=== PATIENT | female | born 1960 | race Caucasian/White ===

== ENCOUNTER 2025-05-18 15:42 | Outpatient (AMB) | payer BC, SELFPAY ==
--- OUTSIDE RECORDS SUMMARY | 2025-05-18 18:32 | XMS_ITS | Patient Health Record ---
Author Organization [facility] Address [address] [place] [address] Care Team Providers Care Silviculturist Name Role Phone Trista Gan Primary Care Provider Smooth Magallanes Unavailable [phone] Allergies Allergen (clinical drug ingredient) Drug/Non Drug Allergy documented on EMR Reaction Allergy Type Onset Date Status sulfamethoxazole / trimethoprim Bactrim rash Drug Allergy Active Biaxin vomiting Drug Allergy Active Ciprofloxacin Unknown Drug Allergy Act suraj erythromycin Erythromycin vomiting Drug Allergy A ctive Cortisone rash Drug Allergy Active azithromycin Azithromycin vomiting Drug Allergy A ctive Reason For Referral No Information Medications Medication SIG (Take, Route, Frequency, Duration) Notes Start Date End Date Status Stool Softener 1 capsule as needed Orally Once a day; Duration: 30 day(s) Active Strattera 100 MG 1 capsule in the morning Orally Once a day Active Ibuprofen 1 tablet as needed Orally every 6 hrs Not-Taking ZyrTEC Not-Taking Vitamin D3 Active Tylenol PRN Active Synthroid 88 MCG 1 tablet on an empty stomach in the morning Orally Once a day Active Simvastatin 20 MG 1 tablet in the evening Orally Once a day; Duration: 30 day(s) Active Viibryd 40 MG 1 tablet with food Orally Once a day; Duration: 30 day(s) Not-Taking buPROPion HCl 200mg once a day Active LaMICtal as directed Orally N ot-Taking Claritin Active Aleve 220 MG as directed Orally Not-Taking traZODone HCl 300 MG 1 tablet at bedtime Orally Once a day Active Social History Tobacco Use: Social History Observation Description Date Details (start date - stop date) Never Smoker NA - NA Tobacco Use/Smoking Question Answer Notes Are you a: nonsmoker Additional Findings: Tobacco Non-User Current no n-smoker Alcohol Screen Question Answer Notes Did you have a drink containing alcohol in the p ast year? Yes Points 0 Interpretation Negative Tobacco use other than smoking: Question Answer Notes Are you an other tobacco user? No Problems Problem Type SNOMED Code ICD Code Onset Dates Problem Status W/U Status Risk Notes Problem Acquired hallux valgus (57785169) Hallux valgus (acquired), left foot (M20.12) Active confirmed Problem Chronic ulcer of foot (867180671) Non-pressure chronic ulcer of other part of left foot with fat layer exposed (L97.522) Active confirmed Problem Acquired hallux valgus (98803007) Hallux valgus (acquired), right foot (M20.11) Active confirmed Problem Non-pressure chronic ulcer of other part of left foot limited to breakdown of skin (L97.521) Active confirmed Problem Non-pressure chronic ulcer of other part of right foot limited to breakdown of skin (L97.511) Active confirmed Plan Of Treatment Pending Test Test Name Order Date X ray : Foot, left 2V 03/24/2013 X ray : Foot, right 2V 03/24/2013 [id number] SKIN/TISSUE 08/14/2022 Insurance Providers Payer Name Payer Address Payer Phone Subscriber Number Group Number Insured Name Patient Relationship to Insured Coverage Start Date Coverage End Date [facility] [address] [place] [address] [id number] Jack Benoit Spouse - patient is the spouse of the insured Medical (General) History Medical History History ICD Code thyroid disorder sinus conditions mumps measles headaches/migraines depression chicken pox back, hip, knee pain Anxiety Arthritis Back,Hip,and Knee pain CAD (Cholesterol) Depression Chicken pox Measles Mumps Environmental allergies - allergy shots since 2010 Hallux Valgus 735.0 Plantar Fasciitis 728.71 Myositis 729.1 Pain in Limb 729.5 Bursitis 727.3 Flat Foot, Congenital 754.61 Surgical History Surgery Date(Month/Year) hernia 1996 tonsillectomy 1965 laparoscopy 1987 adenoidectomy 1965 endometriosis 1987 umbilical hernia repair 1997 colonoscopy 06/02/22 Hospitalization History Reason Date(Month/Year) [facility] - Chest Pain -indigenous samed ay 10/2021
--- OUTSIDE RECORDS SUMMARY | 2025-05-18 18:32 | XMS_ITS | Clinical Summary ---
Author Organization [facility] Address [address] [place] [address] Phone Care Team Providers Care Supervisor Covering And Lining Name Role Phone Trista Gan MD Primary Care Provider [phone] Allergies Active Allergy Reactions Criticality Noted Date Comments Amoxicillin Swelling,Unknown 07/08/2020 Facial flushing Cortisone Rash 07/30/2024 Erythromycin Nausea And Vomiting 07/08/2020 Erythromycin-Sulfisoxazo le 07/30/2024 Levofloxacin Rash 07/08/2020 Sulfa (Sulfonamide Antibiotics) 06/06/2013 Facial swelling Sulfamethoxazole-Trimeth oprim Rash 07/30/2024 Medications traZODone (DESYREL) 150 mg tablet Take 1 tablet (150 mg total) by mouth at bedtime as needed for sleep. Take 1-2 tablets every night 4 Active buPROPion SR (WELLBUTRIN SR) 100 mg 12 hr tablet Take 1 tablet (100 mg total) by mouth 1 (one) time each day. 4 Active buPROPion SR (WELLBUTRIN SR) 200 mg 12 hr tablet Take 1 tablet (200 mg total) by mouth 1 (one) time each day. 3 Active atomoxetine (STRATTERA) 100 mg capsule Take 1 capsule (100 mg total) by mouth 1 (one) time each day. Active cholecalciferol (VITAMIN D-3) 25 mcg (1,000 unit) capsule Take 1 capsule (1,000 Units total) by mouth 1 (one) time each day. 1 Active fluticasone propionate (FLONASE) 50 mcg/actuation nasal spray Administer 2 sprays into each nostril 1 (one) time each day. Shake gently. Before first use, prime pump. After use, clean tip and replace cap. Active betamethasone dipropionate (DIPROSONE) 0.05 % cream Apply topically 2 (two) times a day. To affected area 4 Active docusate sodium (COLACE) 100 mg capsule Take 1 capsule (100 mg total) by mouth 2 (two) times a day. Active acetaminophen (TYLENOL) 500 mg tablet Take by mouth every 6 (six) hours if needed for mild pain. Active apixaban (Eliquis) 5 mg tablet Take 1 tablet (5 mg total) by mouth 2 (two) times a day. 180 each 1 5 Active simvastatin (ZOCOR) 20 mg tablet Take 1 tablet (20 mg total) by mouth at bedtime. 90 each 1 5 Active albuterol HFA (PROAIR HFA ; PROVENTIL HFA ; VENTOLIN HFA) 90 mcg/actuation inhaler Inhale 2 puffs by mouth every 6 (six) hours if needed for wheezing or shortness of breath. 1 each 11 5 12/13/19 26 Active levothyroxine (SYNTHROID, LEVOTHROID) 88 mcg tablet Take 1 tablet (88 mcg total) by mouth 1 (one) time each day before breakfast. 90 tablet 1 5 Active cyclobenzaprine (FLEXERIL) 5 mg tablet Take 1 tablet (5 mg total) by mouth 2 (two) times a day if needed for muscle spasms. 30 tablet 5 Active Active Problems Problem Noted Date Diagnosed Date ADHD 11/24/2024 Other chest pain 09/18/2024 Assessment & Plan (02/04/2025 1:45 PM EDT): Recent stress echocardiogram negative for ischemia as outlined above. Denies any exertional chest discomfort. Instructed to call 911 or go to the emergency room should the patient begin to experience chest pain or pressure lasting greater than 10 minutes does not resolve with rest. Assessment & Plan (09/19/2024 2:33 PM EST): Orders: Ambulatory referral to Cardiology ECG 12 lead Transthoracic echocardiogram (TTE) complete with PRN contrast, bubble, strain, and 3D order panel; Future Hypothyroid 08/19/2024 Plantar fasciitis 08/19/2024 Trochanteric bursitis of left hip 08/19/2024 Overview (08/19/2024): chronic Trigger finger 08/19/2024 Seasonal allergies 08/19/2024 Endometriosis 08/19/2024 Hyperlipidemia 08/19/2024 Assessment & Plan (02/04/2025 1:43 PM EDT): Continue on her current dose of statin therapy and be mindful of dietary fat intake. CTS (carpal tunnel syndrome) 08/19/2024 Overview (08/19/2024): right Bilateral pulmonary embolism (CMS/HCC V24, CMS/H CC V28) 07/26/2024 Assessment & Plan (02/04/2025 1:43 PM EDT): History of unprovoked bilateral PE. She has met with hematology PE the patient does inform me that her sister does have von Willebrand's disease and she recently found out that her mother also had pulmonary emboli. I did suggest she follow-up with hematology and relay this information to further evaluate whether or not further workup or testing is warranted. She will continue on her current dose of Eliquis. Assessment & Plan (09/19/2024 2:33 PM EST): Orders: Ambulatory referral to Cardiology ECG 12 lead Transthoracic echocardiogram (TTE) complete with PRN contrast, bubble, strain, and 3D order panel; Future Osteopenia 05/25/2023 Overview (08/19/2024): 06/02 T score spine -1.0 hip -1.7 FRAX score 18% 10 year fracture risk Back pain 08/23/2022 Asthma 05/15/2019 Bipolar disorder ([facility] V24, [facility] V28) 01/2019 Overview (08/19/2024): Sees Dr. Murphy Obstructive sleep apnea 03/09/2019 Overview (08/19/2024): [facility] Home Sleep Apnea Test: Date 03/06/2019; Wt 177#; BMI 29; ROBERTO 11, AI 7; HI 4; Unclassified apneas 4; Obstructive apneas 24; Central apneas 2; Mixed apneas 0; hypopneas 17; average oxygen saturation 94% (lowest 81% without saturations <88% for 5% or more of study) - Obstructive Sleep Apnea - mild; mostly hypopneas; without sleep related hypoventilation by 2018 home sleep apnea test. Tubular adenoma of colon 01/04/2019 Overview (08/19/2024): repeat screening colonoscopy in 2021 Severe episode of recurrent major depressive disorder, without psychotic features ([facility] V24, [facility] V28) 04/04/2017 Microscopic hematuria 06/18/2013 Encounters Date Type Department Care Team Description 03/24/2025 2:15 PM EDT Office Visit Adult Medicine [address] [phone] Gini Vitale PA Right foot pain (Primary Dx); Chronic right-sided thoracic back pain 03/24/2025 Telephone Adult Medicine [address] [phone] Trista Gan MD 03/23/2025 Telephone Adult Medicine [address] [phone] Trista Gan MD from Last 3 Months Immunizations Name Administration Dates Next Due Influenza Quadravalent, 0.5m l (Fluzone High-dose) 65yo and older 08/21/2023 Influenza Quadravalent, MDCK , 0.5ml, preservative free (Flucelvax) 6mo and older 06/20/2018 Influenza Quadravalent, MDCK , 0.5ml, with preservative (Flucelvax) 6mo and older 08/12/2020,08/20/2017 Influenza Quadrivalent, 0.5m l, preservative free (Fluarix; FluLaval; Fluzone) ages 6mo and older (Afluria) 3yo and older 08/21/2022,06/23/2021,07/31/2019,2015 Influenza trivalent, 0.5mL ( Fluzone High-dose) 65yo and older 05/15/2024 Influenza trivalent, with preservative (Fluzone; Afluria) 6mo and older 08/02/2015,07/10/2014,06/06/2013 Moderna Covid-19 Bivalent, O riginal + Ba.1 (Non-US Tradename Spikevax Bivalent) 07/03/2022 Pneumococcal conjugate 20 va lent (Prevnar 20, PCV 20) 2mo and older 11/19/2023 Tdap Tetanus diptheria acell ular pertussis (Boostrix; Adacel) 7yo and older 02/02/2021,06/06/2013,05/17/2011 Zoster recombinant (Shingrix ) 19yo and older 08/18/2020,05/26/2020 Surgical History Surgery Date Site/Laterality Comments TONSILLECTOMY ABDOMINAL SURGERY for endometriosis and ja. cyst. COLONOSCOPY 06/02/2022 Medical History Medical History Date Comments Depression Hypothyroid Trigger finger Seasonal allergies allergy shots Endometriosis CTS (carpal tunnel syndrome) rig ht Tubular adenoma of colon repeat colonoscopy 12/2021 Hyperlipidemia Back pain 08/23/2022 Osteopenia 05/25/202306/02 T score spi ne -1.0 hip -1.7 FRAX score 18% 10 year fracture risk Anxiety Insomnia Adhd 11/24/2024 Family History Medical History Relation Name Comments Melanoma Father basal cell CA Liver disease Mother ca breast in h er 70s, ESRD, PE Liver disease Mother's side Breast cancer Sister brca neg? Relation Name Status Comments Father Mother Mother's side Paternal Grandmother Alive Sister Alive Social History Tobacco Use Types Packs/Day Years Used Date Smoking Tobacco: Never Smokeless Tobacco: Never Tobacco Cessation:Counseling Given: Not Answered Alcohol Use Standard Drinks/Week Comments No 0 (1 standard drink = 0.6 oz pur e alcohol) occasional Interpersonal Safety Answer Date Record ed Physical Abuse 07/26/2024 Verbal Abuse 07/26/2024 Comments Unknown Sex and Gender Information Value Date Recorded Sex Assigned at Female 09/18/2024 2:55 PM EST Legal Sex Female 10:17 PM EST Gender Identity Female 09/18/2024 2:55 PM EST Sexual Orientation Choose not to disclose 2024 5:53 PM EDT Sexual Orientation Straight 03/23/2025 5: 53 PM EDT Obstetrics History Last Filed Vital Signs Vital Sign Reading Time Taken Comments Blood Pressure 129/75 03/24/2025 2:34 PM EDT Pulse 83 03/24/2025 2:34 PM EDT Temperature 36.7 C (98 F) 03/24/2025 2:34 PM EDT Respiratory Rate 16 03/24/2025 2:34 PM EDT Oxygen Saturation 97% 03/24/2025 2:34 PM EDT Inhaled Oxygen Concentration - - Weight 76.9 kg (169 lb 9.6 oz) 03/24/2025 2:34 P M EDT Height 166.4 cm (5' 5.5 ) 03/24/2025 2:34 PM EDT Body Mass Index 27.79 03/24/2025 2:34 PM EDT Plan of Treatment Upcoming Encounters Date Type Department Care Team (Late st Contact Info) Description 05/28/2025 10:30 AM EDT Office Visit Adult Medicine [facility] [address] [place] [address] Anna Rutledge PA [address] [place], [place] 07/27/2025 11:45 AM EST Office Visit Pulmonol - [place] [address] [phone] Jeanine Reinoso MD [address] [id number] Health Maintenance Due Date Last Done Comments RSV Immunization Adult Patients (1 - Risk 60-74 years 1-dose series) 2018 Social Influencers of Health Screening 08/19/2022 Breast Cancer Screening 10/11/2023 10/11/2021, 03/08 Depression Screening 09/10/2024 COVID-19 Vaccine ( season) 2025 07/12/2023, 07/03/2022, 02/20/2022, Additional history exists Influenza Vaccine (#1) 2025 , 08/21/2023, 08/21/2022, Additional history exists Falls Risk Assessment 07/28/2025 07/28/2024 Colorectal Cancer Screening: Colonoscopy 06/02/2027 06/02/2022 Cholesterol Screening (Lipid Panel) 11/24/2029 11/24/2024, 09/27/2023 DTaP,Tdap,and Td Vaccines (4 - Td or Tdap) 02/02/2031 02/02/2021, 06/06/2013, 05/17/2011 Osteoporosis Screening (Bone Density Screening) 05/24/2033 05/24/2023 Hepatitis C Screening Addressed 05/07/2014 Overri dden with the intention of not completing the topic Zoster Vaccines Completed 08/18/2020, 05/26/2020 Pneumococcal Vaccine: 50+ Years Completed 11/19/2023 HIB Vaccines Aged Out No longer eligi ble based on patient's age to complete this topic HPV Vaccines Aged Out No longer eligi ble based on patient's age to complete this topic Hepatitis A Vaccines Aged Out No long er eligible based on patient's age to complete this topic Hepatitis B Vaccines Aged Out No long er eligible based on patient's age to complete this topic IPV Vaccines Aged Out No longer eligi ble based on patient's age to complete this topic MMR Vaccines Aged Out No longer eligi ble based on patient's age to complete this topic Meningococcal ACWY Vaccine Aged Out N o longer eligible based on patient's age to complete this topic Meningococcal B Vaccine Aged Out No l onger eligible based on patient's age to complete this topic RSV Immunization Patients Under 20 months Aged Out No longer eligible based on patient's age to complete this topic Varicella Vaccines Aged Out No longer eligible based on patient's age to complete this topic Procedures Procedure Name Priority Date/Time Associated Diagnosis Comments LIPID PANEL WITH REFLEX TO DIRECT LDL Routine 11/24/2024 9:53 AM EDT Other hyperlipidemia DXA BONE DENSITY STUDY 1+ SITS AXIAL SKEL Routine 05/24/2023 11:29 AM EDT Asymptomatic menopausal state HM COLONOSCOPY Routine 06/02/2022 from Last 3 Months or Most Recently Relevant to Health Maintenance Results * (ABNORMAL) Lipid panel with reflex to direct LDL (11/24/2024 9:53 AM EDT) Cholesterol 212(H) 0 - 200 mg/dL LAB CHEMISTRY METHOD 11/24/2024 1:16 PM EDT [facility] Triglycerides 94 0 - 150 mg/dL LAB CHEMISTRY METHOD 11/24/2024 1:16 PM EDT [facility] HDL 92 >=40 mg/dL LAB CHEMISTRY METHOD 11/24/2024 1:16 PM EDT [facility] LDL Calculated 101(H) 0 - 100 mg/dL LAB CHEMISTRY METHOD 11/24/2024 1:16 PM EDT [facility] VLDL Cholesterol Wan 18.8 mg/dL LAB CHEMISTRY METHOD 11/24/2024 1:16 PM EDT [facility] Non HDL Chol. (LDL+VLDL) 120 <145 mg/dL LAB CHEMISTRY METHOD 11/24/2024 1:16 PM EDT [facility] Chol/HDL Ratio 2.3 0.0 - 4.4 LAB CHEMISTRY METHOD 11/24/2024 1:16 PM EDT [facility] Blood Venous blood specimen / Unknown Venipuncture / Unknown 11/24/2024 9:53 AM EDT 11/24/2024 9:53 AM EDT us Trista Gan MD LAB BLOOD ORDERABLES Final Resul t [facility] [address] [place] [address], * DXA BONE DENSITY STUDY 1+ SITS AXIAL SKEL (05/24/2023 11:29 AM EDT) Anatomical Region Laterality Modality Bone Densitometr y 02/22/2023 1:57 PM EDT Narrative 05/25/2023 8:11 AM EDT STUDY: DUAL ENERGY X-RAY ABSORPTIOMETRY / DXA REASON FOR EXAM: Female, 63 years old. menopausal/postmenopausal disorder TECHNIQUE: Bone Mineral Density (BMD) measurements of the lumbar spine and left hip were obtained. COMPARISON: None FINDINGS: L1-L4 T score: -1.0. This corresponds to Normal bone density. Left femoral neck T score: -1.7. This corresponds to osteopenia. Left total hip T score: -1.1. This corresponds to osteopenia. FRAX score: 10 year risk of major osteoporotic fracture Major 18 %, 10 year risk of hip fracture Hip 1.3 % IMPRESSION: IMPRESSION: Osteopenia Reference Information: The T-score is the number of standard deviations above or below the standard which is normal for young adults at their peak bone mineral density. The World Health Organization (WHO) interprets the T-scores as follows: Above -1 Normal bone density Between -1 and -2.5 Osteopenia Equal to / or below -2.5 Osteoporosis As a practical clinical guideline, osteopenia may be graded as follows: Mild -1 through -1.5 Moderate -1.6 through -2.0 Severe -2.1 through -2.4 References: 1. NIH Osteoporosis and Related Bone Diseases http://www.osteo.org 2. International Society for Clinical Densitometry http://www.iscd.org 3. National Osteoporosis Foundation http://www.nof.org Procedure Note Cole Patel MD - 10/16/2023 STUDY: DUAL ENERGY X-RAY ABSORPTIOMETRY / DXA REASON FOR EXAM: Female, 63 years old. menopausal/postmenopausaldisorder TECHNIQUE: Bone Mineral Density (BMD) measurements of the lumbar spineand left hip were obtained. COMPARISON: None FINDINGS: L1-L4 T score: -1.0. This corresponds to Normal bone density. Left femoral neck T score: -1.7. This corresponds to osteopenia. Left total hip T score: -1.1. This corresponds to osteopenia. FRAX score: 10 year risk of major osteoporotic fracture Major 18 %, 10year risk of hip fracture Hip 1.3 % IMPRESSION: IMPRESSION: Osteopenia Reference Information: The T-score is the number of standard deviations above or below thestandard which is normal for young adults at their peak bone mineral density. The World HealthOrganization (WHO) interprets the T-scores as follows: Above -1 Normal bone density Between -1 and -2.5 Osteopenia Equal to / or below -2.5 Osteoporosis As a practical clinical guideline, osteopenia may be graded as follows: Mild -1 through -1.5 Moderate -1.6 through -2.0 Severe -2.1 through -2.4 References: 1. NIH Osteoporosis and Related Bone Diseases http://www.osteo.org 2. International Society for Clinical Densitometry http://www.iscd.org 3. National Osteoporosis Foundation http://www.nof.org Trista Gan MD [facility] DXA PROCEDURES Final Result * Colonoscopy (06/02/2022) [facility] Colonoscopy abstract [facility] / Anatomical Region Laterality Modality Other Historical Provider HEALTH MAINTENANCE Final Result from Last 3 Months or Most Recently Relevant to Health Maintenance Insurance [facility] Advance Directives * Full Code - Confirmed (Latest Code Status on File) Date Activated Date Inactivated Comments 07/26/2024 6:01 PM 07/28/2024 9:48 PM This code status was ascertained in the following way: Code status discussion: discussion with patient To update the patient's code status, place a code status order. Do not modify or discontinue any currently active code status orders. * Full Code - Default Date Activated Date Inactivated Comments 07/26/2024 5:33 PM 07/26/2024 6:01 PM This is or nathalie is used when code status has not been discussed with the patient, or code status is otherwise unknown/unconfirmed To update the patient's code status, place a code status order. Do not modify or discontinue any currently active code status orders. Healthcare Agents on File Name Relationship Healthcare Agent Replaced By [facility] Communication Ernie Benoit Spouse Health Care Agent Care Teams Supervisor Covering And Lining Relationship Specialty Start Date End Date Trista Gan MD [address] [place] [address] PCP - General Internal Medicine 02/18/21
--- OUTSIDE RECORDS SUMMARY | 2025-05-18 18:32 | XMS_ITS | Clinical Summary ---
Author Organization [facility] Address [address] [place] [phone] Phone Care Team Providers Care Code And Test Clerk Name Role Phone Marybel Enriquez DO Primary Car e Provider Allergies Active Allergy Reactions Criticality Noted Date Comments Amoxicillin 07/08/2020 Erythromycin Nausea and/or Vomiting 07/08/2020 Levofloxacin 07/08/2020 Sulfa (Sulfonamide Antibiotics) 07/08/2020 Medications No known medications Social History Tobacco Use Types Packs/Day Years Used Date Smoking Tobacco: Never Smokeless Tobacco: Never Alcohol Use Standard Drinks/Week Comments Yes 0 (1 standard drink = 0.6 oz pur e alcohol) social Education Answer Date Recorded Are you interested in more education? Not on yanelis e 01/05/2023 Are you concerned about learning? Not on file 01/05/2023 No 01/05/2023 No 01/05/2023 Digital Access Answer Date Recorded No 02/06/2023 No 02/06/2023 Reliable internet access at home? Not on file 02/06/2023 Device with a working camera? Not on file Comments Unknown Sex and Gender Information Value Date Recorded Sex Assigned at Female 07/08/2020 2:13 PM EDT Legal Sex Female 2:03 PM EDT Gender Identity Female 07/08/2020 2:13 PM EDT Sexual Orientation Not on file Last Filed Vital Signs Vital Sign Reading Time Taken Comments Blood Pressure 148/81 07/08/2020 2:09 PM EDT Pulse 75 07/08/2020 2:09 PM EDT Temperature 36.9 C (98.4 F) 07/08/2020 2:09 PM EDT Respiratory Rate 16 07/08/2020 2:09 PM EDT Oxygen Saturation 100% 07/08/2020 2:09 PM EDT Inhaled Oxygen Concentration - - Weight 72.6 kg (160 lb) 07/08/2020 2:09 PM EDT Height 167.6 cm (5' 6 ) 07/08/2020 2:09 PM EDT Body Mass Index 25.82 07/08/2020 2:09 PM EDT Plan of Treatment Not on file Medical Devices Not on file Insurance [facility] HMO POS [facility] [place] [address] [place] [address] [place] [address] [place] [address] [place] [address] [place] [address] [place] [address] [place] [address] [place] [place] [address] HMO POS [facility] HMO POS [facility] HMO POS Care Teams Code And Test Clerk Relationship Specialty Start Date End Date Marybel Enriquez DO [address] [place] [address] PCP - General Internal Medicine 07/08/20 Additional Source Comments The information contained in this document represents components of the legal health record. It is not the complete legal health record.[facility]
--- OUTSIDE RECORDS SUMMARY | 2025-05-18 18:32 | XMS_ITS ---
Author Name [facility] Organization Unknown Care Team Organization Name Specialty Phone Email Start Date End [facility] Trista Gan Primary Care 07/18/2022 [address]
== END 2025-05-18 15:46 | disposition home or self-care (01) ==
LOC: HO.HMGAL 15:42
PROVIDERS: PCP Internal Medicine; Visit Provider Registered Nurse Emergency
DX: J30.89 Other allergic rhinitis (principal)
CPT/HCPCS: 95117; 95165

== ENCOUNTER 2025-05-25 14:26 | Outpatient (AMB) | payer BC, SELFPAY ==
--- OUTSIDE RECORDS SUMMARY | 2025-05-25 19:55 | XMS_ITS | Clinical Summary ---
Author Organization [facility] Address [address] [place] [address] Phone Care Team Providers Care Design Technician Name Role Phone Trista Gan MD Primary Care Provider [phone] Allergies Active Allergy Reactions Criticality Noted Date Comments Amoxicillin Swelling,Unknown 07/08/2020 Facial flushing Cortisone Rash 07/30/2024 Erythromycin Nausea And Vomiting 07/08/2020 Erythromycin-Sulfisoxazo le 07/30/2024 Levofloxacin Rash 07/08/2020 Sulfa (Sulfonamide Antibiotics) 06/06/2013 Facial swelling Sulfamethoxazole-Trimeth oprim Rash 07/30/2024 Medications traZODone (DESYREL) 150 mg tablet Take 1 tablet (150 mg total) by mouth at bedtime as needed for sleep. Take 1-2 tablets every night 05/25/20 24 Active buPROPion SR (WELLBUTRIN SR) 100 mg 12 hr tablet Take 1 tablet (100 mg total) by mouth 1 (one) time each day. 05/19/20 24 Active buPROPion SR (WELLBUTRIN SR) 200 mg 12 hr tablet Take 1 tablet (200 mg total) by mouth 1 (one) time each day. 06/27/20 23 Active atomoxetine (STRATTERA) 100 mg capsule Take 1 capsule (100 mg total) by mouth 1 (one) time each day. Active cholecalciferol (VITAMIN D-3) 25 mcg (1,000 unit) capsule Take 1 capsule (1,000 Units total) by mouth 1 (one) time each day. 02/19/20 21 Active fluticasone propionate (FLONASE) 50 mcg/actuation nasal spray Administer 2 sprays into each nostril 1 (one) time each day. Shake gently. Before first use, prime pump. After use, clean tip and replace cap. Active betamethasone dipropionate (DIPROSONE) 0.05 % cream Apply topically 2 (two) times a day. To affected area 11/21/19 24 Active docusate sodium (COLACE) 100 mg capsule Take 1 capsule (100 mg total) by mouth 2 (two) times a day. Active acetaminophen (TYLENOL) 500 mg tablet Take by mouth every 6 (six) hours if needed for mild pain. Active apixaban (Eliquis) 5 mg tablet Take 1 tablet (5 mg total) by mouth 2 (two) times a day. 180 each 1 11/25/19 25 Active albuterol HFA (PROAIR HFA ; PROVENTIL HFA ; VENTOLIN HFA) 90 mcg/actuation inhaler Inhale 2 puffs by mouth every 6 (six) hours if needed for wheezing or shortness of breath. 1 each 12/13/19 25 026 Active levothyroxine (SYNTHROID, LEVOTHROID) 88 mcg tablet Take 1 tablet (88 mcg total) by mouth 1 (one) time each day before breakfast. 90 tablet 1 02/20/20 25 Active cyclobenzaprine (FLEXERIL) 5 mg tablet Take 1 tablet (5 mg total) by mouth 2 (two) times a day if needed for muscle spasms. 30 tablet 03/24/20 25 Active simvastatin (ZOCOR) 20 mg tablet TAKE 1 TABLET BY MOUTH EVERYDAY AT BEDTIME 90 tablet 1 05/19/20 25 Active simvastatin (ZOCOR) 20 mg tablet Take 1 tablet (20 mg total) by mouth at bedtime. 90 each 11/25/19 25 025 Discontinued Active Problems Problem Noted Date Diagnosed Date [...] Back pain 08/23/2022 Asthma 05/15/2019 Bipolar disorder ([facility] [place]24, [facility] V28) 01/2019 Overview (08/19/2024): Sees Dr. Murphy Obstructive sleep apnea 03/09/2019 Overview (08/19/2024): [facility] Home Sleep Apnea Test: Date 03/06/2019; Wt [...] recurrent major depressive disorder, without psychotic features ([facility] V24, [facility] V28) 04/04/2017 Microscopic hematuria 06/18/2013 Encounters Date Type Department Care Team Description 03/24/2025 2:15 PM EDT Office Visit Adult Medicine [address] [phone] Gini Vitale PA Right foot pain (Primary Dx); Chronic right-sided thoracic back pain 03/24/2025 Telephone Adult Medicine [address] [phone] Trista Gan MD 03/23/2025 Telephone Adult Medicine [address] [phone] Trista Gan MD from Last 3 Months [...] 10:30 AM EDT Office Visit Adult Medicine [address] [phone] Anna Rutledge PA [address] [place], [place] 07/27/2025 11:45 AM EST Office Visit Pul[address] [place] [address] [phone] Jeanine Reinoso MD [address] [address] Health Maintenance Due Date Last Done Comments [...] LAB CHEMISTRY METHOD 11/24/2024 1:16 PM EDT [facility] Triglycerides 94 0 - 150 mg/dL LAB CHEMISTRY METHOD 11/24/2024 1:16 PM EDT [facility] HDL 92 >=40 mg/dL LAB CHEMISTRY METHOD 11/24/2024 1:16 PM EDT [facility] LDL Calculated 101(H) 0 - 100 mg/dL LAB CHEMISTRY METHOD 11/24/2024 1:16 PM EDT [facility] VLDL Cholesterol Wan 18.8 mg/dL LAB CHEMISTRY METHOD 11/24/2024 1:16 PM EDT [facility] Non HDL Chol. (LDL+VLDL) 120 <145 mg/dL LAB CHEMISTRY METHOD 11/24/2024 1:16 PM EDT [facility] Chol/HDL Ratio 2.3 0.0 - 4.4 LAB CHEMISTRY METHOD 11/24/2024 1:16 PM [facility] Blood Venous blood specimen / Unknown Venipuncture / Unknown 11/24/2024 9:53 AM EDT 11/24/2024 9:53 AM EDT Trista Gan MD LAB BLOOD ORDERABLES Final Resul t [facility] [address] [place] [address], * DXA BONE DENSITY STUDY 1+ SITS [...] National Osteoporosis Foundation [email or web address]://[email or web address] Trista Gan MD [facility] DXA PROCEDURES Final Result * Colonoscopy (06/02/2022) [facility] Colonoscopy abstract [facility] / Anatomical Region Laterality Modality Other Historical Provider HEALTH MAINTENANCE Final Result from Last 3 Months or Most Recently Relevant to Health Maintenance Insurance [facility] Advance Directives * Full Code - [...] Agents on File Name Relationship Healthcare Agent Relationshi p Communication Ernie Benoit Spouse Health Care Agent Care Teams Design Technician Relationship Specialty Start Date End Date Trista Gan MD [address] [place] [phone] PCP - General Internal Medicine 02/18/21
--- OUTSIDE RECORDS SUMMARY | 2025-05-25 19:55 | XMS_ITS | Clinical Summary ---
Author Organization [facility] Address [address] [facility] [address] [address] [place] [address] Phone Care Team Providers Care Director Of Community Education Name Role Phone Marybel Enriquez DO Primary [...] file Medical Devices Not on file Insurance [facility] H[facility] POS [facility] [place] [address] [place] [address] [place] [address] [place] [address] [place] [address] [place] [address] [place] [address] [place] [address] [place] [address] [place] [address] HMO POS [facility] HMO POS [facility] HMO POS Care Teams Director Of Community Education Relationship Specialty Start Date End Date Marybel Enriquez DO [address] [place] [address] PCP - General Internal Medicine 07/08/20 Additional Source Comments The information contained in this document represents components of the legal health record. It is not the complete legal health record.[facility]
--- OUTSIDE RECORDS SUMMARY | 2025-05-25 19:55 | XMS_ITS | Patient Health Record ---
Author Organization [facility] Address [address] [place] [address] Care Team Providers Care Striping Machine Operator Name Role Phone Trista Gan Primary Care Provider Smooth Magallanes Unavailable [phone] Allergies Allergen (clinical drug ingredient) Drug/Non Drug [...] Status Risk Notes Problem Acquired hallux valgus (56449113) Hallux valgus (acquired), left foot (M20.12) Active confirmed Problem Chronic ulcer of foot (712234221) Non-pressure chronic ulcer of other part of left foot with fat layer exposed (L97.522) Active confirmed Problem Acquired hallux valgus (92112756) Hallux valgus (acquired), right foot (M20.11) Active [...] X ray : Foot, right 2V 03/24/2013 [id number] SKIN/TISSUE 08/14/2022 Insurance Providers Payer Name Payer Address Payer Phone Subscriber Number Group Number Insured Name Patient Relationship to Insured Coverage Start Date Coverage End Date [facility] [address] [place] [address] [id number] Jack Benoit Spouse - patient is [...]
== END 2025-05-25 14:27 | disposition home or self-care (01) ==
LOC: HO.HMGAL 14:26
PROVIDERS: PCP Internal Medicine; Visit Provider Registered Nurse Emergency
DX: J30.89 Other allergic rhinitis (principal)
CPT/HCPCS: 95117; 95165

== ENCOUNTER 2025-06-01 14:40 | Outpatient (AMB) | payer BC, SELFPAY | END 2025-06-01 14:41 | disposition home or self-care (01) | LOC: HO.HMGAL 14:40 | PROVIDERS: PCP Internal Medicine; Visit Provider Registered Nurse Emergency | DX: J30.89 Other allergic rhinitis (principal) | CPT/HCPCS: 95117; 95165 ==

== ENCOUNTER 2025-06-15 15:44 | Outpatient (AMB) | payer BC, SELFPAY | END 2025-06-15 15:48 | disposition home or self-care (01) | LOC: HO.HMGAL 15:44 | PROVIDERS: PCP Internal Medicine; Visit Provider Registered Nurse Emergency | DX: J30.89 Other allergic rhinitis (principal) | CPT/HCPCS: 95117; 95165 ==

== ENCOUNTER 2025-06-29 15:20 | Outpatient (AMB) | payer BC, SELFPAY ==
--- OUTSIDE RECORDS SUMMARY | 2025-06-29 19:32 | XMS_ITS | Encounter Summary ---
Author Organization [facility] Address [address] [place] [address] Care Team Providers Care Lockstitch Machine Operator Name Role Phone Trista Gan MD Primary Care Provider [phone] Encounter Details Date Type Department Care Team Description 07/07/2021 Personalized Living Manager Nurse Report Medical Records [address] [place] [address] Isi Ballesteros Social History Tobacco Use Types Packs/Day Years Used Date Smoking Tobacco: Never Smokeless Tobacco: Never Alcohol Use Standard Drinks/Week Comments No 0 (1 standard drink = 0.6 oz pur e alcohol) Sex Assigned at Date Recorded Female 10/29/2020 11:14 AM EST Job Start Date Occupation Industry Not on file Not on file Not on file documented as of this encounter Plan of Treatment Not on file documented as of this encounter Visit Diagnoses Not on filedocumented in this encounter Care Teams Lockstitch Machine Operator Relationship Specialty Start Date End Date Trista Gan MD [address] [place] [address] PCP - General Internal Medicine 02/18/21 documented as of this encounter
--- OUTSIDE RECORDS SUMMARY | 2025-06-29 19:32 | XMS_ITS | Encounter Summary ---
Author Organization [facility] Address [address] [place] [address] Care Team Providers Care Hospitality Team Member Name Role Phone Marybel Dunlap DO Primary Care Pro vider Unavailable Trista Gan MD Primary Care Provider Reason for Visit * Reason Onset Date Comments Steamer Operator Feedback 07/18/2019 Podiatry Encounter Details Date Type Department Care Team Description 07/18/2019 Telephone Adult Medicine [address] [address] Marybel Dunlap DO Steamer Operator Feedback (Podiatry) Social History Tobacco Use Types Packs/Day Years Used Date Smoking Tobacco: Never Smokeless Tobacco: Never Alcohol Use Standard Drinks/Week Comments No 0 (1 standard drink = 0.6 oz pur e alcohol) Sex Assigned at Date Recorded Female 10/29/2020 11:14 AM EST Job Start Date Occupation Industry Not on file Not on file Not on file documented as of this encounter Miscellaneous Notes * Telephone Encounter - Marybel Saravia DO - 07/18/2019 3:10 PM EST Talita henderson * Telephone Encounter - Monasonia West - 07/18/2019 9:[address] Krak[place], You put in an Urgent referral for this patient to see Dr. Smooth Cooper at [facility]. I called to schedule and spoke to Shaneka. She stated they can't schedule at this time because they are doing a computer upgrade. She said we can call Sunday and we can get the patient an appointment if they can wait. I wanted to run this by you and make you aware. I can call Sunday morning if this is okay. If not please put in another referral that we can work to another office. Thank you! Mona Lange Referrals Department documented in this encounter Plan of Treatment Not on file documented as of this encounter Visit Diagnoses Not on filedocumented in this encounter Care Teams Hospitality Team Member Relationship Specialty Start Date End Date Marybel Dunlap DO PCP - General Internal Medicine 05/19/13 02/17/21 Trista Gan MD [address] [place] [address] PCP - General Internal Medicine 02/18/21 documented as of this encounter
--- OUTSIDE RECORDS SUMMARY | 2025-06-29 19:32 | XMS_ITS | Patient Health Record ---
Author Organization [facility] Address [address] [facility] [place] [address] Care Team Providers Care Camp Boss Name Role Phone Trista Gan Primary Care Provider Smooth Young Unavailable [phone] Allergies Allergen (clinical drug ingredient) Drug/Non Drug [...] Status Risk Notes Problem Acquired hallux valgus (23287767) Hallux valgus (acquired), left foot (M20.12) Active confirmed Problem Chronic ulcer of foot (666594692) Non-pressure chronic ulcer of other part of left foot with fat layer exposed (L97.522) Active confirmed Problem Acquired hallux valgus (00868396) Hallux valgus (acquired), right foot (M20.11) Active [...] X ray : Foot, right 2V 03/24/2013 [id number] SKIN/TISSUE 08/14/2022 Insurance Providers Payer Name Payer Address Payer Phone Subscriber Number Group Number Insured Name Patient Relationship to Insured Coverage Start Date Coverage End Date [facility] [address] [place] [address] [id number] Jack Benoit Spouse - patient is [...] tonsillectomy 1965 laparoscopy 1987 adenoidectomy 1965 endometriosis 1986 umbilical hernia repair 1997 colonoscopy 06/02/22 Hospitalization History Reason Date(Month/Year) [facility] - Chest Pain -indigenous samed ay 10/2021
--- OUTSIDE RECORDS SUMMARY | 2025-06-29 19:32 | XMS_ITS | Encounter Summary ---
Author Organization [facility] Address [address] [place] [address] Care Team Providers Care Lime Hide Inspector Name Role Phone Marybel Dunlap DO Primary Care Pro vider Unavailable Trista Gan MD Primary Care Provider [phone] Reason for Referral * EXTERNAL (Urgent) - Authorized/Booked Specialty Diagnoses / Procedures Referred By Contac t Referred To Contact Podiatry Procedures REFERRAL TO PODIATRY (OUT OF NETWORK) Marybel Dunlap DO [address] [place] [address] Smooth Cooper [address] [place] [phone] Referral ID Status Reason Start Date Expiration Date V isits Requested Visits Authorized SEE NOTE Authorized/B ooked 07/17/2019 10/21/2019 1 1 Encounter Details Date Type Department Care Team Description 07/17/2019 Orders Only Adult Medicine [facility] [address] [place] [address] Marybel Dunlap DO Social History Tobacco Use Types Packs/Day Years [...] on filedocumented in this encounter Care Teams Lime Hide Inspector Relationship Specialty Start Date End Date Marybel Dunlap DO PCP - General Internal Medicine 05/19/13 02/17/21 Trista Gan MD [address] [place] [address] PCP - General Internal Medicine 02/18/21 documented as of this encounter
--- OUTSIDE RECORDS SUMMARY | 2025-06-29 19:32 | XMS_ITS | Encounter Summary ---
Author Organization [facility] Address [address] [place] [address] Care Team Providers Care Electric Tripper Machine Operator Name Role Phone Trista Gan MD Primary Care Provider Encounter Details Date Type Department Care Team Description 08/21/2022 Hadoop Consultant Report Medical Records [address] [place] [address] Anna Galvan PA-C Social History Tobacco Use Types Packs/Day Years Used Date Smoking Tobacco: Never Smokeless Tobacco: Never Alcohol Use Standard Drinks/Week Comments No 0 (1 standard drink = 0.6 oz pur e alcohol) Sex Assigned at Date Recorded Female 10/29/2020 11:14 AM EST Job Start Date Occupation Industry Not on file Not on file Not on file COVID-19 Exposure Response Date Recorded In the last 10 days, have yo u been in contact with someone who was confirmed or suspected to have Coronavirus/COVID-19? No / Unsure 08/23/2022 12:50 PM EST documented as of this encounter Plan of Treatment Not on file documented as of this encounter Visit Diagnoses Not on filedocumented in this encounter Care Teams Electric Tripper Machine Operator Relationship Specialty Start Date End Date Trista Gan MD [address] [place] [address] PCP - General Internal Medicine 02/18/21 documented as of this encounter
--- OUTSIDE RECORDS SUMMARY | 2025-06-29 19:32 | XMS_ITS | Encounter Summary ---
Author Organization [facility] Address [address] [place] [address] Care Team Providers Care Silk Worker Name Role Phone Marybel Dunlap DO Primary Care Pro vider Unavailable Trista Gan MD Primary Care Provider [phone] Encounter Details Date Type Department Care Team Description 07/22/2018 Sleep Tech Report Medical Records [address] [place] [address] Papa Zepeda PA-C Social History Tobacco Use Types Packs/Day [...] on filedocumented in this encounter Care Teams Silk Worker Relationship Specialty Start Date End Date Marybel Dunlap DO PCP - General Internal Medicine 05/19/13 02/17/21 Trista Gan MD [address] [place] [id number] PCP - General Internal Medicine 02/18/21 documented as of this encounter
--- OUTSIDE RECORDS SUMMARY | 2025-06-29 19:32 | XMS_ITS | Encounter Summary ---
Author Organization [facility] Address [address] [place] [address] Care Team Providers Care Rrt Name Role Phone Trista Gan MD Primary Care Provider [phone] Encounter Details Date Type Department Care Team Description 03/11/2024 [facility] [address] [place] [address] Md Oscar Social History Tobacco Use Types Packs/Day Years Used Date Smoking Tobacco: Never Passive Smoke Exposure: Never Smokeless Tobacco: Never Alcohol Use Standard [...] on filedocumented in this encounter Care Teams Rrt Relationship Specialty Start Date End Date Trista Gan MD [address] [place] [address] PCP - General Internal Medicine 02/18/21 documented as of this encounter
--- OUTSIDE RECORDS SUMMARY | 2025-06-29 19:32 | XMS_ITS | Encounter Summary ---
Author Organization [facility] Address [address] [place] [address] Care Team Providers Care Voltage Tester Name Role Phone Trista Gan MD Primary Care Provider [phone] Encounter Details Date Type Department Care Team Description 04/21/2021 Telephone [facility] [address] [place] [address] Chaitanya Gómez, PA-C [address] [place] [address] Social History Tobacco Use Types Packs/Day Years Used Date Smoking Tobacco: Never Smokeless Tobacco: Never Alcohol Use Standard Drinks/Week Comments No 0 (1 standard drink = 0.6 oz pur e alcohol) Sex Assigned at Date Recorded Female 10/29/2020 11:14 AM EST Job Start Date Occupation Industry Not on file Not on file Not on file COVID-19 Exposure Response Date Recorded In the last month, have you been in contact with someone who was confirmed or suspected to have Coronavirus / COVID-19? No / Unsure 03/30/2021 8:07 AM EDT documented as of this encounter Plan of Treatment Not on file documented as of this encounter Visit Diagnoses Not on filedocumented in this encounter Care Teams Voltage Tester Relationship Specialty Start Date End Date Trista Gan MD [address] [place] [address] PCP - General Internal Medicine 02/18/21 documented as of this encounter
--- OUTSIDE RECORDS SUMMARY | 2025-06-29 19:32 | XMS_ITS | Encounter Summary ---
Author Organization [facility] Address [address] [place] [address] Care Team Providers Care Cleaning Validation Consultant Name Role Phone Marybel Dunlap DO Primary Care Pro vider Unavailable Trista Gan MD Primary Care Provider Reason for Visit * Reason Comments E-prescribe Rx Request Encounter Details Date Type Department Care Team Description 12/29/2018 Refill Adult Medicine [address] [address] Marybel Dunlap DO E-prescribe Rx Request Social History Tobacco Use Types Packs/Day Years [...] encounter Miscellaneous Notes * Telephone Encounter - Khloe Samayoa M.A. - 12/30/2018 1:38 PM EDT Lab Results Component Value Date CHOL 205 10/07/2018 LDL 106 10/07/2018 HDL 82 10/07/2018 TRIG 89 10/07/2018 * Telephone Encounter - Bianca Purcell - 12/30/2018 1:00 PM EDT Patient would like script to be: E-PRESCRIBED/FAXED TO PHARMACY ?? WHEN WAS THE PATIENT'S LAST APPOINTMENT IN ADULT MEDICINE? 07/02/18 ?? WHEN WAS THE LAST TIME THE PATIENT SAW THEIR PCP? Same as above ?? Does patient have an upcoming appointment? No-[facility] to refill request. Appt due ?? (THE MEDICATION REQUESTED IS ON THE MED LIST ABOVE) All of the medications requested were on the CURRENT MEDS list ?? Did you check the Pharmacy information above?: YES ?? Patient wants: 90 -day supply ?? Is this a mail order prescription request ? NO ?? If the refill is from a FAXED refill request what is the RX # listed on the fax? N/A ?? Patients current insurance carrier is: Payor: [facility]/[employer] FFS / Plan: [employer] $20 [place] [id number] / ProductType: HMO [id number] ? documented in this encounter Plan of Treatment Not on file documented as of this encounter Visit Diagnoses Not on filedocumented in this encounter Care Teams Cleaning Validation Consultant Relationship Specialty Start Date End Date Marybel Dunlap DO PCP - General Internal Medicine 05/19/13 02/17/21 Trista Gan MD [address] [place] [address] PCP - General Internal Medicine 02/18/21 documented as of this encounter
--- OUTSIDE RECORDS SUMMARY | 2025-06-29 19:32 | XMS_ITS | Encounter Summary ---
Author Organization [facility] Address [address] [place] [address] Care Team Providers Care Cyber Ops Planner Name Role Phone Marybel Dunlap DO Primary Care Pro vider Unavailable Trista Gan MD Primary Care Provider [phone] Reason for Referral * EXTERNAL (Routine) - Authorized/Booked Specialty Diagnoses / Procedures Referred By Contac t Referred To Contact Allergy & Immunology / Allergy Procedures REFERRAL TO ALLERGY Marybel Dunlap DO [address] [place] [address] Baudilio Jordan Saurabh [address] [place] [address] Referral ID Status Reason Start Date Expiration Date V isits Requested Visits Authorized SEE NOTE Authorized/B ooked 07/03/2019 10/03/2019 1 1 Encounter Details Date Type Department Care Team Description 07/03/2019 Orders Only Adult Medicine [facility] [address] [place] [address] Marybel Dunlap DO Social History Tobacco Use [...] on filedocumented in this encounter Care Teams Cyber Ops Planner Relationship Specialty Start Date End Date Marybel Dunlap DO PCP - General Internal Medicine 05/19/13 02/17/21 Trista Gan MD [address] [place] [address] PCP - General Internal Medicine 02/18/21 documented as of this encounter
--- OUTSIDE RECORDS SUMMARY | 2025-06-29 19:32 | XMS_ITS | Encounter Summary ---
Author Organization [facility] Address [address] [place] [address] Care Team Providers Care Animation Director Name Role Phone Marybel Dunlap DO Primary Care Pro vider Unavailable Trista Gan MD Primary Care Provider [phone] Encounter Details Date Type Department Care Team Description 02/02/2021 Orders Only Adult Medicine [address] [address] Marybel Dunalp DO Need for prophylactic vaccination with combined vgczcwwhlm-yelstoa-aenfz ssis (DTP) vaccine (Primary Dx) Social History Tobacco Use Types Packs/Day Years [...] have Coronavirus / COVID-19? No / Unsure 02/02/2021 10:47 AM EDT documented as of this encounter Plan of Treatment Not on file documented as of this encounter Procedures Procedure Name Priority Date/Time Associated Diagnosis Comments [place] TDAP VACCINE 7 YRS/> IM Routine 02/02/2021 10:55 AM EDT Need for prophylactic vaccination with combined xehdcsbmoe-uzdwtvh-jixtm ssis (DTP) vaccine documented in this encounter Visit Diagnoses Diagnosis Need for prophylactic vaccination with combined hljkyuwmhl-siffaip-eqgnhatyh (DTP) vaccine- Primary documented in this encounter Care Teams Animation Director Relationship Specialty Start Date End Date Marybel Dunlap DO PCP - General Internal Medicine 05/19/13 02/17/21 Trista Gan MD [address] [place] [address] PCP - General Internal Medicine 02/18/21 documented as of this encounter
--- OUTSIDE RECORDS SUMMARY | 2025-06-29 19:32 | XMS_ITS | Clinical Summary ---
Author Organization [facility] Address [address] [place] [address] Care Team Providers Care Bridge Expert Name Role Phone Trista Gan MD Primary Care Provider [phone] Allergies Active Allergy Reactions Severity Noted Date Comments Amoxicillin Swelling/Edema 08/23/2022 Facial flushing Sulfa Drugs 06/06/2013 Facial swelling Medications Medication Sig Dispensed Refills Start Date End Date Status Cholecalciferol (Vitamin D3) 25 MCG (1000 UT) Cap Take 1 capsule by mouth daily. 30 capsule 0 02/18/2021 Active atomoxetine (STRATTERA) 100 MG capsule Take 1 Capsule by mouth daily. 0 Active trazodone (DESYREL) 150 MG tablet Take 2 Tablets by mouth at bedtime. 0 Active ALBUTEROL SULFATE (ProAir HFA) 108 (90 Base) MCG/ACT Aero Soln Inhale 2 Puffs into the lungs every 4 hours as needed for Cough or Wheezing. 25.5 g 0 08/23/2022 Active buPROPion (WELLBUTRIN SR) 200 MG 12 hr tablet 0 06/27/2023 Active betamethasone dipropionate (DIPROLENE) 0.05 % cream Apply bid to affected area 30 g 1 11/21/2023 Active Calcium Carbonate-Vit D-Min (CALCIUM 1200 OR) Take 1,200 mg by mouth daily. 0 Active magnesium 30 MG tablet Take 1 Tablet by mouth daily. 0 Active fluticasone (Flonase) 50 MCG/ACT nasal spray 2 Sprays by Nasal route daily. 47.4 mL 1 01/01/2024 Active diclofenac (VOLTAREN) 75 MG EC tablet Take 1 Tablet by mouth 2 times daily. 180 Tablet 1 04/21/2024 Active cetirizine (ZYRTEC) 10 MG tablet Take 1 Tablet by mouth daily. 90 Tablet 1 04/21/2024 Active levothyroxine (SYNTHROID, LEVOTHROID) 88 MCG tablet Take 1 Tablet by mouth every morning (before breakfast). 90 Tablet 1 05/15/2024 Active simvastatin (ZOCOR) 20 MG tablet Take 1 Tablet by mouth at bedtime. 90 Tablet 1 05/15/2024 Active cyclobenzaprine (FLEXERIL) 5 MG tablet Take 1 Tablet by mouth 2 times daily as needed for Muscle spasms for up to 10 days. Medication may cause drowsiness, do not drive/operate machinery while taking 20 Tablet 0 05/15/2024 Active Active Problems Problem Noted Date Osteopenia 05/25/2023 Overview: 06/02 T score spine -1.0 hip -1.7 FRAX score 18% 10 year fracture risk Back pain 08/23/2022 Asthma 05/15/2019 Bipolar disorder 05/15/2019 Overview: Sees Dr. Murphy Obstructive sleep apnea mild ROBERTO 11 02/10 Overview: [facility] Home Sleep Apnea Test: Date 03/06/2019; [...] hypoventilation by 2018 home sleep apnea test. Severe episode of recurrent major depressive disorder, without psychotic features 04/04/2017 Microscopic hematuria 06/18/2013 Hypothyroid Plantar fasciitis Trochanteric bursitis of left hip Overview: chronic Trigger finger Seasonal allergies Endometriosis Hyperlipidemia CTS (carpal tunnel syndrome) Overview: right Resolved Problems Problem Noted Date Resolved Date Physical exam 11/19/2023 05/15/2024 Family history of malignant melanoma of skin 03/201708/08/2022 Overview: Family history of malignant melanoma of skin father Immunizations Name Administration Dates Next Due COVID-19 (Moderna Booster) 07/12/2023 COVID-19 (Moderna) 02/20/2022,,01/05/2021, 021 Covid-19 Bivalent (Moderna) 07/03/2022 Flu (Generic) 05/17/2011 Influenza (> 6 Months) 08/21/2022,2020,07/31/2019, 018,09/01/2016,08/02/2015,07/10/2014,,08/01/2012 Influenza Vaccine-quadrivale nt 4 Years Plus 08/21/2022,06/23/2021,08/12/2020, 019,08/20/2017,09/01/2016 Influenza vaccine high dose age 65 and over 05/15/2024,08/21/2023 PREVNAR 20 11/19/2023 Shingrix (Recombinant zoster vaccine) 08/18/2020,05/26/2020 Tdap 02/02/2021,06/06/2013,05/17/2011 Family History Medical History Relation Name Comments Melanoma Father basal cell CA Liver Disease Mother ca breast, ESR D Liver Disease Mother's side CA Breast Sister sister brca neg ? Relation Name Status Comments Father Mother Mother's side Paternal Grandmother Alive Sister Alive Social History Tobacco Use Types Packs/Day Years Used Date Smoking Tobacco: Never Passive Smoke Exposure: Never Smokeless Tobacco: Never Tobacco Cessation:Counseling Given: Not Answered Alcohol Use Standard Drinks/Week Comments No 0 (1 standard drink = 0.6 oz pur e alcohol) Sex Assigned at Date Recorded Female 10/29/2020 11:14 AM EST Job Start Date Occupation Industry Not on file Not on file Not on file Last Filed Vital Signs Vital Sign Reading Time Taken Comments Blood Pressure 128/88 06/24/2024 2:41 PM EDT Pulse 83 06/16/2024 4:34 PM EDT Temperature 35.6 C (96 F) 06/16/2024 4:34 PM EDT Respiratory Rate 16 06/16/2024 4:34 PM EDT Oxygen Saturation 98% 11/19/2023 3:45 PM EDT Inhaled Oxygen Concentration - - Weight 77.6 kg (171 lb) 06/16/2024 4:34 PM EDT Height 166.4 cm (5' 5.5 ) 05/29/2024 12:25 PM ED T Body Mass Index 28.02 05/29/2024 12:25 PM EDT Plan of Treatment Health Maintenance Due Date Last Done Comments MAMMOGRAM 10/11/2022 10/11/2021, 02/09, 09/06/2020, Additional history exists BMI CHECK/ADVISE 09/10/2024 02/13/2024, 07/2024, 11/19/2023 (Completed), Additional history exists Covid-19 Vaccine (2022-10 4 season) 2025 07/12/2023, 07/03/2022, 02/20/2022, Additional history exists INFLUENZA (#1) 2025 05/15/2024, 08/10, 08/21/2022, Additional history exists BONE DENSITY SCREENING 05/24/2025 05/24/2023 COLON CANCER SCREENING 06/02/2025 , 06/02/2022 (Completed), 01/01/2019, Additional history exists CHOLESTEROL SCREENING 09/27/2028 09/27/2023 , 09/15/2022, 05/02/2021, Additional history exists DTAP/TDAP/TD (4 - Td or Tdap) 02/02/2031, 06/06/2013, 05/17/2011 HEPATITIS C SCREENING Completed 05/08/2014, 013 SHINGLES VACCINE Completed 08/18/2020, 05/26/2020 PNEUMOCOCCAL VACCINE Completed 11/19/2023 Care Teams Bridge Expert Relationship Specialty Start Date End Date Trista Gan MD [address] [place] [id number] PCP - General Internal Medicine 02/18/21
--- OUTSIDE RECORDS SUMMARY | 2025-06-29 19:32 | XMS_ITS | Encounter Summary ---
Author Organization [facility] Address [address] [place] [address] Care Team Providers Care Is Architect Name Role Phone Trista Gan MD Primary Care Provider [phone] Encounter Details Date Type Department Care Team Description 05/06/2021 Bread Racker Report Medical Records [address] [place] [id number] Social History Tobacco Use Types Packs/Day Years [...] have Coronavirus / COVID-19? No / Unsure 05/04/2021 3:26 PM EDT documented as of this encounter Plan of Treatment Not on file documented as of this encounter Visit Diagnoses Not on filedocumented in this encounter Care Teams Is Architect Relationship Specialty Start Date End Date Trista Gan MD [address] [place] [address] PCP - General Internal Medicine 02/18/21 documented as of this encounter
--- OUTSIDE RECORDS SUMMARY | 2025-06-29 19:32 | XMS_ITS | Encounter Summary ---
Author Organization [facility] Address [address] [place] [address] Care Team Providers Care Radio Commentator Name Role Phone Trista Gan MD Primary Care Provider [phone] Encounter Details Date Type Department Care Team Description 06/17/2024 Pt. Non Urgent Medical Question Adult Medicine [address] [address] Anna Rutledge PA-C [address] [place] [address] Social History Tobacco Use Types Packs/Day Years [...] encounter Miscellaneous Notes * Telephone Encounter - Laureen Cooper L.P.N. - 06/17/2024 9:04 AM EDTFrom: Kimi Benoit To: Arabella Rutledge Sent: 06/17/2024 8:56 AM EDT Subject: one more shingles question I forgot to mention at the appointment that my lips are tingling and sore, in the same way they didwhen I had a few medication reactions. Is that also part of shingles? I do feel kind of sick, and Ihave a sore throat. Thanks. documented in this encounter Plan of Treatment Not on file documented as of this encounter Visit Diagnoses Not on filedocumented in this encounter Care Teams Radio Commentator Relationship Specialty Start Date End Date Trista Gan MD [address] [place] [id number] PCP - General Internal Medicine 02/18/21 documented as of this encounter
--- OUTSIDE RECORDS SUMMARY | 2025-06-29 19:32 | XMS_ITS | Encounter Summary ---
Author Organization [facility] Address [address] [place] [address] Care Team Providers Care Nail Setter Name Role Phone Marybel Dunlap DO Primary Care Pro vider Unavailable Trista Gan MD Primary Care Provider [phone] Encounter Details Date Type Department Care Team Description 09/07/2014 Hr Advisor Report Medical Records [address] [place] [address] Hay Purcell Social History Tobacco Use Types Packs/Day Years Used Date Smoking Tobacco: Never Alcohol Use Standard Drinks/Week Comments Not Asked 0 (1 standard drink = 0.6 oz pur e alcohol) Sex Assigned at Date Recorded Female 10/29/2020 11:14 AM EST Job Start Date Occupation Industry Not on file Not on file Not on file documented as of this encounter Plan of Treatment Not on file documented as of this encounter Visit Diagnoses Not on filedocumented in this encounter Care Teams Nail Setter Relationship Specialty Start Date End Date Marybel Dunlap DO PCP - General Internal Medicine 05/19/13 02/17/21 Trista Gan MD [address] [place] [address] [id number] PCP - General Internal Medicine 02/18/21 documented as of this encounter
--- OUTSIDE RECORDS SUMMARY | 2025-06-29 19:32 | XMS_ITS | Encounter Summary ---
Author Organization [facility] Address [address] [place] [address] Care Team Providers Care Care Team Assistant Name Role Phone Marybel Dunlap DO Primary Care Pro vider Unavailable Trista Gan MD Primary Care Provider Reason for Visit * Reason Onset Date Comments refill request 10/21/2018 Encounter Details Date Type Department Care Team Description 10/21/2018 Refill Adult Medicine [address] [address] aMrybel Dunlap DO refill request Social History Tobacco Use Types Packs/Day Years [...] encounter Miscellaneous Notes * Telephone Encounter - Delma Garduno M.A. - 10/23/2018 2:18 PM EST Lab Results Component Value Date TSH 3.08 10/07/2018 * Telephone Encounter - Layla Murillo - 10/21/2018 8:33 AM EST Patient would like script to be: E-PRESCRIBED/FAXED TO PHARMACY WHEN WAS THE PATIENT'S LAST APPOINTMENT IN ADULT MEDICINE? 07/02/2018 WHEN WAS THE LAST TIME THE PATIENT SAW THEIR PCP? Same as above Does patient have an upcoming appointment? No-patient refused appointment, will call back to book appointment (THE MEDICATION REQUESTED IS ON THE MED LIST ABOVE) All of the medications requested were on the CURRENT MEDS list Did you check the Pharmacy information above?: YES Patient wants: 30 -day supply Is this a mail order prescription request ? NO If the refill is from a FAXED refill request what is the RX # listed on the fax? N/A Patients current insurance carrier is: Payor: [facility]/[employer] FFS / Plan: [employer] $15 [employer] [id number] / ProductType: [employer] [id number] documented in this encounter Plan of Treatment Not on file documented as of this encounter Visit Diagnoses Not on filedocumented in this encounter Care Teams Care Team Assistant Relationship Specialty Start Date End Date Marybel Dunlap DO PCP - General Internal Medicine 05/19/13 02/17/21 Trista Gan MD [address] [place] [address] [id number] PCP - General Internal Medicine 02/18/21 documented as of this encounter
--- OUTSIDE RECORDS SUMMARY | 2025-06-29 19:32 | XMS_ITS | Encounter Summary ---
Author Organization [facility] Address [address] [place] [address] Care Team Providers Care Telecommunication Operator Name Role Phone Marybel Dunlap DO Primary Care Pro vider Unavailable Trista Gan MD Primary Care Provider [phone] Encounter Details Date Type Department Care Team Description 06/01/2019 Pt. Non Urgent Medical Question Pulmonology - [place] [address] [facility] [address] [place] [id number] Britney Worley FNP [address] [place] [address] Social History Tobacco Use Types Packs/Day Years Used Date Smoking Tobacco: Never Smokeless Tobacco: Never Alcohol Use Standard Drinks/Week Comments No 0 (1 standard drink = 0.6 oz pur e alcohol) Sex Assigned at Date Recorded Female 10/29/2020 11:14 AM EST Job Start Date Occupation Industry Not on file Not on file Not on file documented as of this encounter Progress Notes * HELEN Davidson - 06/01/2019 9:53 PM EDTFrom: Kimi Benoit To: HELEN Davidson Sent: 06/01/2019 6:53 PM EDT Subject: can't get over cough I saw Britney three and a half weeks ago for a sore throat and deep chest cough. The diagnosis was that it was viral, and I was prescribed Flovent and was told to take Mucinex and to use my Flonase spray twice a day. The cough stopped coming from my chest and the sore throat has been better, but I have a near- constant urge to cough; it's partly an irritant and partly pain or discomfort. It's getting exhausting! I wake up most nights coughing, and I'm constantly bloated from sugar-free cough drops. Can you help? Thank you! documented in this encounter Plan of Treatment Not on file documented as of this encounter Visit Diagnoses Not on filedocumented in this encounter Care Teams Telecommunication Operator Relationship Specialty Start Date End Date Marybel Dunlap DO PCP - General Internal Medicine 05/19/13 02/17/21 Trista Gan MD [address] [place] [phone] PCP - General Internal Medicine 02/18/21 documented as of this encounter
--- OUTSIDE RECORDS SUMMARY | 2025-06-29 19:32 | XMS_ITS | Encounter Summary ---
Author Organization [facility] Address [address] [place] [address] Care Team Providers Care It Senior Software Engineer Java Name Role Phone Marybel Dunlap DO Primary Care Pro vider Unavailable Trista Gan MD Primary Care Provider [phone] Encounter Details Date Type Department Care Team Description 07/01/2019 Pt. Non Urgent Medic al Question Adult Medicine [address] [address] Marybel Dunlap DO Social History Tobacco Use [...] as of this encounter Progress Notes * Marybel Saravia DO - 07/03/2019 6:45 AM EDT Ref to fu placed documented in this encounter Miscellaneous Notes * Telephone Encounter - Delma Garduno M.A. - 07/02/2019 6:54 AM EDTFrom: Kimi Benoit To: Marybel Saravia DO Sent: 07/01/2019 6:47 PM EDT Subject: new referral for allergy shots Hannalaquita, I have been advised by Dr. Jordan's office that I need an updated referral for my allergy shots. My insurance company is [employer]. It needs to be back-dated to June 19. Thank you. documented in this encounter Plan of Treatment Not on file documented as of this encounter Visit Diagnoses Not on filedocumented in this encounter Care Teams It Senior Software Engineer Java Relationship Specialty Start Date End Date Marybel Dunlap DO PCP - General Internal Medicine 05/19/13 02/17/21 Trista Gan MD [address] [place] [phone] PCP - General Internal Medicine 02/18/21 documented as of this encounter
--- OUTSIDE RECORDS SUMMARY | 2025-06-29 19:32 | XMS_ITS | Encounter Summary ---
Author Organization [facility] Address [address] [place] [address] Care Team Providers Care Tape Sewing Machine Operator Name Role Phone Trista Gan MD Primary Care Provider [phone] Reason for Visit * Reason Onset Date Comments refill request 07/09/2021 Encounter Details Date Type Department Care Team Description 07/09/2021 Refill Adult Urgent Care - [place] [id number] Trista Gan MD [address] [place] [address] [phone] refill request Social History Tobacco Use Types [...] encounter Miscellaneous Notes * Telephone Encounter - Gabriela Bran - 07/09/2021 9:25 AM EDT Patient would like script to be: E-PRESCRIBED/FAXED TO PHARMACY PATIENT OUT NEEDS TODAY WHEN WAS THE PATIENT'S LAST APPOINTMENT IN ADULT MEDICINE? 05/04/2021 WHEN WAS THE LAST TIME THE PATIENT SAW THEIR PCP? Does patient have an upcoming appointment? No-patient [...] N/A Patients current insurance carrier is: Payor: [employer] FFS / Plan: [employer] $30 [employer] [id number] / ProductType: HMO PRE-PAID documented in this encounter Plan of Treatment Not on file documented as of this encounter Visit Diagnoses Not on filedocumented in this encounter Care Teams Tape Sewing Machine Operator Relationship Specialty Start Date End Date Trista Gan MD [address] [place] [phone] PCP - General Internal Medicine 02/18/21 documented as of this encounter
--- OUTSIDE RECORDS SUMMARY | 2025-06-29 19:32 | XMS_ITS | Encounter Summary ---
Author Organization [facility] Address [address] [place] [address] Care Team Providers Care Slip Sheeter Name Role Phone Trista Gan MD Primary Care Provider [phone] Encounter Details Date Type Department Care Team Description 12/16/2021 Director Of Content Marketing Report Medical Records [address] [place] [id number] Abstract, Provider Social History Tobacco Use Types Packs/Day Years [...] on filedocumented in this encounter Care Teams Slip Sheeter Relationship Specialty Start Date End Date Trista Gan MD [address] [place] [phone] PCP - General Internal Medicine 02/18/21 documented as of this encounter
--- OUTSIDE RECORDS SUMMARY | 2025-06-29 19:32 | XMS_ITS | Encounter Summary ---
Author Organization [facility] Address [address] [place] [address] Care Team Providers Care Bank Runner Name Role Phone Marybel Dunlap DO Primary Care Pro vider Unavailable Trista Gan MD Primary Care Provider [phone] Encounter Details Date Type Department Care Team Description 03/09/2019 Orders Only Medical Records [address] [place] [address] Dorcas Naranjo PA-C Social History Tobacco Use Types Packs/Day [...] Procedure Name Priority Date/Time Associated Diagnosis Comments OUTSIDE SLEEP STUDY Routine 03/06/2019 documented in this encounter Results * OUTSIDE SLEEP STUDY (03/06/2019) Dorcas Naranjo PA-C PULMONOLOGY documented in this encounter Visit Diagnoses Not on filedocumented in this encounter Care Teams Bank Runner Relationship Specialty Start Date End Date Marybel Dunlap DO PCP - General Internal Medicine 05/19/13 02/17/21 Trista Gan MD [address] [place] [address] PCP - General Internal Medicine 02/18/21 documented as of this encounter
--- OUTSIDE RECORDS SUMMARY | 2025-06-29 19:32 | XMS_ITS | Encounter Summary ---
Author Organization [facility] Address [address] [place] [address] Care Team Providers Care Change Control Specialist Name Role Phone Marybel Dunlap DO Primary Care Pro vider Unavailable Trista Gan MD Primary Care Provider [phone] Reason for Visit * Reason Onset Date Comments REFERRAL 07/12/2018 Encounter Details Date Type Department Care Team Description 07/12/2018 Telephone Adult Medicine [address] [address] Marybel Dunlap DO REFERRAL Social History Tobacco Use Types Packs/Day Years [...] Telephone Encounter - Marybel Saravia DO - 07/15/2018 12:07 PM EST That's fine can we make change/addendum * Telephone Encounter - Yelitza Diaz M.A. - 07/15/2018 11:01 AM EST 07/02/18 pt ref to ortho by pcp, pt calling to ask that referral be updated to include both shoulders. Please review & advise * Telephone Encounter - Courtney Cramer - 07/12/2018 9:09 AM EDT Patient has a referral in place for orthopedics and it specifies left should joint pain, Patient staets that it's both shoulders that are affected and would need referral order updated by Dr. Mejía. documented in this encounter Plan of Treatment Not on file documented as of this encounter Visit Diagnoses Not on filedocumented in this encounter Care Teams Change Control Specialist Relationship Specialty Start Date End Date Marybel Dunlap DO PCP - General Internal Medicine 05/19/13 02/17/21 Trista Gan MD [address] [place] [id number] PCP - General Internal Medicine 02/18/21 documented as of this encounter
--- OUTSIDE RECORDS SUMMARY | 2025-06-29 19:32 | XMS_ITS | Encounter Summary ---
Author Organization [facility] Address [address] [place] [address] Care Team Providers Care Well Reactivator Operator Name Role Phone Trista Gan MD Primary Care Provider [phone] Encounter Details Date Type Department Care Team Description 06/17/2024 Pt. Non Urgent Medical Question Adult Medicine [address] [address] Anna Rutledge PA-C [address] [place] [address] Social History Tobacco Use Types Packs/Day Years [...] Encounter - Laureen Cooper L.P.N. - 06/17/2024 8:56 AM EDTFrom: Kimi Benoit To: Arabella Rutledge Sent: 06/17/2024 8:40 AM EDT Subject: shingles questions I have a few questions that I didn't think to ask at my appointment yesterday: 1. I'm due for my biweekly allergy shots. Can I still get those? 2. Can I get a covid vaccine at this time? 3. Can I get my massage that's scheduled in two weeks? 4. will I get more lesions? I might think of more, but that's it f or now. Thanks, Kimi documented in this encounter Plan of Treatment Not on file documented as of this encounter Visit Diagnoses Not on filedocumented in this encounter Care Teams Well Reactivator Operator Relationship Specialty Start Date End Date Trista Gan MD [address] [place] [address] PCP - General Internal Medicine 02/18/21 documented as of this encounter
--- OUTSIDE RECORDS SUMMARY | 2025-06-29 19:32 | XMS_ITS | Encounter Summary ---
Author Organization [facility] Address [address] [place] [address] Care Team Providers Care Carpet Installation Specialist Name Role Phone Jorge Gan MD Primary Care Provider [phone] Reason for Visit * Reason Onset Date Comments Freelance Displayer Feedback 07/22/2021 [facility] Encounter Details Date Type Department Care Team Description 07/22/2021 Telephone Adult Medicine [address] [id number] Jorge Gan MD [address] [place] [address] [phone] Freelance Displayer Feedback ([facility]) Social History Tobacco Use Types Packs/Day Years [...] encounter Miscellaneous Notes * Telephone Encounter - Radhara Hua - 07/22/2021 8:27 AM EST [facility] Outpatient Status [ Save Response to Batch ] Request: [id number] [facility] Healthcare Trace #: [id number] Subscriber Submitter : JORGE GAN Submitter Type: Provider : 1960 Provider Role: Primary Care Physician Health Care Event (#[id number]) Health Services Review Type: Initial Certification Status : Certified in total Service Type : Physical Medicine Place Of Service : Office Visits : 14 Service Date : 05/06/2021-09/09/2021 Service Providers ID Provider Type Specialty NPI : [id number] Performing Physical Therapist Diagnosis Diagnosis Date Code Description 05/06/2021 M54.5 LOW BACK PAIN * Telephone Encounter - Ignacia Mae - 07/22/2021 7:42 AM EST What insurance does the patient have today? Payor: JAMES/HMO FFS / Plan: HMO $30 [email or web address] [id number] / Product Type: HMO PRE-PAID Effective 06/10/09: [facility] will not retro referral requests over 90 days. If request is for this please instruct patient to call the 800# on their insurance card to appeal. Do not submit a request. Referrals cannot be processed if the insurance is not accurate. If the insurance listed above in red is NO BILLING INFORMATION FOUND FOR THIS ENCOUTNER The patients correct insurance must be obtained and registered in [facility] or their referral can not be processed. Is this a retro request? YES. If yes for what date of service do you need the retro referral? 05/06/21-06/30/21 Who is calling to request this referral? [facility] faxed in request Will require 14 visits If the caller is not the patient, what is their name? N/A Ask the patient WHO referred them to this specialty: Patient saw Lavelle Kathleen at [facility] for the problem and was told if symptoms did not resolve or worsen they would refer them to this specialty FIRST and LAST NAME of SPECIALIST PATIENT is seeing: [facility] What specialty is this? Physical Therapy DIAGNOSIS Patient is being seen for (Not a body part or a procedure): LUMBAR Pain Have you seen this SPECIALIST for this PROBLEM/DX before?NO If YES, when:n/a Have you checked REVIEW or the APPT DESK to see if this referral has already been done or has visits left? NO Is this visit:Initial Visit Address of Specialist:[facility] [address] [place], [place] [address] Phone # of Specialist:[phone] Fax #: (if applicable):[phone] Does patient have an appointment scheduled?: YES Date of appointment- (including a retro-request): services provided from 05/06/21 - 06/30/21 Is this appointment related to: Not MVA, WC or Surgery related documented in this encounter Plan of Treatment Not on file documented as of this encounter Visit Diagnoses Not on filedocumented in this encounter Care Teams Carpet Installation Specialist Relationship Specialty Start Date End Date Jorge Gan MD [address] [place] [id number] PCP - General Internal Medicine 02/18/21 documented as of this encounter
--- OUTSIDE RECORDS SUMMARY | 2025-06-29 19:32 | XMS_ITS | Encounter Summary ---
Author Organization [facility] Address [address] [place] [address] Care Team Providers Care Wood Furniture Assembler Name Role Phone Marybel Dunlap DO Primary Care Pro vider Unavailable Trista Gan MD Primary Care Provider [phone] Encounter Details Date Type Department Care Team Description 07/01/2019 Pt. Non Urgent Medical Question Pulmonology - [place] [address] [facility] [address] [place] [id number] Britney Worley FNP [address] [place] [address] Social History Tobacco Use Types Packs/Day Years [...] encounter Progress Notes * HELEN Davidson - 07/02/2019 6:20 AM EDTFrom: Kimi Benoit To: HELEN Davidson Sent: 07/01/2019 6:46 PM EDT Subject: waiting to hear from Sleep Medicine Services Hi, I saw you on May 22 about my diagnosis of sleep apnea, and you said that I'd hear from Sleep Medicine Services within a couple of weeks about getting a CPAP machine. It has been almost 6 weeks. Can you advise me on what I should do next? Thank you. documented in this encounter Plan of Treatment Not on file documented as of this encounter Visit Diagnoses Not on filedocumented in this encounter Care Teams Wood Furniture Assembler Relationship Specialty Start Date End Date Marybel Dunlap DO PCP - General Internal Medicine 05/19/13 02/17/21 Trista Gan MD [address] [place] [id number] PCP - General Internal Medicine 02/18/21 documented as of this encounter
--- OUTSIDE RECORDS SUMMARY | 2025-06-29 19:32 | XMS_ITS | Encounter Summary ---
Author Organization [facility] Address [address] [place] [address] Care Team Providers Care Butter Printer Name Role Phone Marybel Dunlap DO Primary Care Pro vider Unavailable Trista Gan MD Primary Care Provider [phone] Encounter Details Date Type Department Care Team Description 09/19/2017 Coin Machine Assembler Report Medical Records [address] [place] [address] LisastephanieJennifer [address] [place] [address] Social History Tobacco Use Types Packs/Day Years [...] on filedocumented in this encounter Care Teams Butter Printer Relationship Specialty Start Date End Date Marybel Dunlap DO PCP - General Internal Medicine 05/19/13 02/17/21 Trista Gan MD [address] [place] [address] [id number] PCP - General Internal Medicine 02/18/21 documented as of this encounter
--- OUTSIDE RECORDS SUMMARY | 2025-06-29 19:32 | XMS_ITS | Encounter Summary ---
Author Organization [facility] Address [address] [place] [address] Care Team Providers Care Secondary Connector Armature Name Role Phone Marybel Dunlap DO Primary Care Pro vider Unavailable Trista Gan MD Primary Care Provider [phone] Encounter Details Date Type Department Care Team Description 09/07/2014 SCAN Medical Records [address] [place] [address] Abstract, Provider Social History Tobacco Use Types [...] Name Priority Date/Time Associated Diagnosis Comments OUTSIDE MAMMO Routine 07/06/2014 documented in this encounter Results * OUTSIDE MAMMO (07/06/2014) Provider Abstract RADIOLOGY documented in this encounter Visit Diagnoses Not on filedocumented in this encounter Care Teams Secondary Connector Armature Relationship Specialty Start Date End Date Marybel Dunlap DO PCP - General Internal Medicine 05/19/13 02/17/21 Trista Gan MD [address] [place] [address] PCP - General Internal Medicine 02/18/21 documented as of this encounter
--- OUTSIDE RECORDS SUMMARY | 2025-06-29 19:33 | XMS_ITS | Encounter Summary ---
Author Organization [facility] Address [address] [place] [address] Care Team Providers Care Port Steward Name Role Phone Trista Gan MD Primary Care Provider [phone] Encounter Details Date Type Department Care Team Description 12/28/2022 Hospital Medical Records [address] [place] [address] [facility] Social History Tobacco Use Types Packs/Day Years [...] suspected to have Coronavirus/COVID-19? No / Unsure 12/15/2022 8:45 AM EDT documented as of this encounter Plan of Treatment Not on file documented as of this encounter Procedures Procedure Name Priority Date/Time Associated Diagnosis Comments OUTSIDE EKG Routine 12/28/2022 OUTSIDE PLAIN FILM Routine 12/28/2022 documented in this encounter Results * OUTSIDE PLAIN FILM (12/28/2022) Provider Default RADIOLOGY * OUTSIDE EKG (12/28/2022) Provider Default CARDIOLOGY documented in this encounter Visit Diagnoses Not on filedocumented in this encounter Care Teams Port Steward Relationship Specialty Start Date End Date Trista Gan MD [address] [place] [address] PCP - General Internal Medicine 02/18/21 documented as of this encounter
--- OUTSIDE RECORDS SUMMARY | 2025-06-29 19:33 | XMS_ITS | Encounter Summary ---
Author Organization [facility] Address [address] [place] [address] Care Team Providers Care Building Economist Name Role Phone Marybel Dunlap DO Primary Care Pro vider Unavailable Trista Gan MD Primary Care Provider [phone] Encounter Details Date Type Department Care Team Description 06/16/2013 Core Dipper Report Medical Records [address] [place] [address] Hay Purcell Social History Tobacco Use Types [...] on filedocumented in this encounter Care Teams Building Economist Relationship Specialty Start Date End Date Marybel Dunlap DO PCP - General Internal Medicine 05/19/13 02/17/21 Trista Gan MD [address] [place] [address] [id number] PCP - General Internal Medicine 02/18/21 documented as of this encounter
--- OUTSIDE RECORDS SUMMARY | 2025-06-29 19:33 | XMS_ITS | Encounter Summary ---
Author Organization [facility] Address [address] [place] [address] Care Team Providers Care Chief Technician X Ray Name Role Phone Marybel Dunlap DO Primary Care Pro vider Unavailable Trista Gan MD Primary Care Provider [phone] Encounter Details Date Type Department Care Team Description 04/05/2020 Pt. Non Urgent Medic al Question Adult Medicine [address] [address] Marybel Dunlap DO Social History Tobacco Use [...] as of this encounter Progress Notes * Sanam Tay M.A. - 04/05/2020 3:55 PM EDTFrom: Kimi Benoit To: Marybel Saravia DO Sent: 04/05/2020 10:14 AM EDT Subject: my test results I just looked at my test results and have some questions. I'm particularly concerned about my cholesterol results. If I'm reading it correctly, it's 307, which I think would be considered very high. I know I need to improve my diet and exercise more. It also looks like my Vitamin D level is a little low, so I will chart picker a supplement. I think it'ssupposed to be D3 plus calcium. Is this correct? My urine RBC result was high - 5 when the normal range is 0-4. There were two liver function tests. Both were on the low normal side. If you have any advice for me about the test results, I'd appreciate hearing from you. Thanks! Kimi documented in this encounter Plan of Treatment Not on file documented as of this encounter Visit Diagnoses Not on filedocumented in this encounter Care Teams Chief Technician X Ray Relationship Specialty Start Date End Date Marybel Dunlap DO PCP - General Internal Medicine 05/19/13 02/17/21 Trista Gan MD [address] [place] [id number] PCP - General Internal Medicine 02/18/21 documented as of this encounter
--- OUTSIDE RECORDS SUMMARY | 2025-06-29 19:33 | XMS_ITS | Encounter Summary ---
Author Organization [facility] Address [address] [place] [address] Care Team Providers Care Commercial Leasing Agent Name Role Phone Marybel Dunlap DO Primary Care Pro vider Unavailable Trista Gan MD Primary Care Provider [phone] Encounter Details Date Type Department Care Team Description 06/09/2013 Grants Specialist Report Medical Records [address] [place] [address] Smooth Cooper Social History Tobacco Use Types Packs/Day Years [...] on filedocumented in this encounter Care Teams Commercial Leasing Agent Relationship Specialty Start Date End Date Marybel Dunlap DO PCP - General Internal Medicine 05/19/13 02/17/21 Trista Gan MD [address] [place] [address] [phone] PCP - General Internal Medicine 02/18/21 documented as of this encounter
--- OUTSIDE RECORDS SUMMARY | 2025-06-29 19:33 | XMS_ITS | Encounter Summary ---
Author Organization [facility] Address [address] [place] [address] Care Team Providers Care City Driver Name Role Phone Marybel Dunlap DO Primary Care Pro vider Unavailable Trista Gan MD Primary Care Provider [phone] Encounter Details Date Type Department Care Team Description 06/21/2020 Pt. Non Urgent Medic al Question Adult Medicine [address] [address] Marybel Dunlap DO Social History Tobacco Use [...] encounter Miscellaneous Notes * Telephone Encounter - Kandice Chapman M.A. - 06/21/2020 2:05 PM EDTFrom: Kimi Benoit To: Marybel Saravia DO Sent: 06/21/2020 1:54 PM EDT Subject: schedule a lithium blood level My psychiatrist (not a [place] [facility] employee) has asked me to get a blood lithium level. He said he would send the request/referral to the [place] lab. The lab, however, does not have anything on filefor me. I believe that the request has to come from my [place] [facility] provider. Would you be able to make this request? I will need to schedule the time of the test since timing is important. Thanks for your help! documented in this encounter Plan of Treatment Not on file documented as of this encounter Visit Diagnoses Not on filedocumented in this encounter Care Teams City Driver Relationship Specialty Start Date End Date Marybel Dunlap DO PCP - General Internal Medicine 05/19/13 02/17/21 Trista Gan MD [address] [place] [id number] PCP - General Internal Medicine 02/18/21 documented as of this encounter
--- OUTSIDE RECORDS SUMMARY | 2025-06-29 19:33 | XMS_ITS | Encounter Summary ---
Author Organization [facility] Address [address] [place] [address] Care Team Providers Care Proposal Engineer Name Role Phone Jorge Gan MD Primary Care Provider [phone] Reason for Visit * Reason Onset Date Comments Sales Service Technician Feedback 03/27/2023 Insurance Auth P odiatry Encounter Details Date Type Department Care Team Description 03/27/2023 Telephone Adult Medicine [address] [phone] Jorge Gan MD [address] [place] [address] Sales Service Technician Feedback (Insurance Auth Podiatry ) Social History Tobacco Use Types Packs/Day Years [...] encounter Miscellaneous Notes * Telephone Encounter - Agatha Ramos - 03/27/2023 11:41 AM EDT UTILIZATION MANAGEMENT ORGANIZATION (UMO): Utilization Management Organization ([facility]) Name Entity Identifier: Payer Entity Type: Non-Person Entity [facility] Last or Organization Name: [facility] Payor ID: [id number] REQUESTER: Entity Identifier: Provider Entity Type: Person Requester Last or Organization Name: [facility] Requester First Name: JORGE Requester Middle Name: Srinivasa [facility] SUBSCRIBER: ERNIE BETANCOURT DEPENDENT: ARIELLE BETANCOURT Dependent Demographic Information Date of : [id number] PATIENT EVENT: Healthcare Services Review Information Request Category: SC (Specialty Care Review) Certification Type: I (Initial) Service Type: 3 (Consultation) Healthcare Service Location Info: 11 (Place of Service Codes for Professional or Dental Services) Level of Service: Elective Healthcare Services Review Certification Action: A1 (Certified in total) Review Identification Number: [id number] Patient Event Dates Proposed or Actual Event Date: Healthcare Services Delivery 12 Visit per every for Patient Event Provider Name Entity Identifier: Service Provider Entity Type: Person Requester Last or Organization Name: [facility] Requester First Name: VALERY Requester Middle Name: Darlene [facility] Patient Event Provider Information Provider: PE - Performing Provider Taxonomy Code: [id number] documented in this encounter Plan of Treatment Not on file documented as of this encounter Visit Diagnoses Not on filedocumented in this encounter Care Teams Proposal Engineer Relationship Specialty Start Date End Date Jorge Gan MD [address] [place] [address] PCP - General Internal Medicine 02/18/21 documented as of this encounter
--- OUTSIDE RECORDS SUMMARY | 2025-06-29 19:33 | XMS_ITS | Clinical Summary ---
Author Organization [facility] Address [address] [place] [address] [place] [address] Phone Care Team Providers Care General Office Assistant Name Role Phone Marybel Enriquez DO Primary [...] file Medical Devices Not on file [place] [address] [place] [address] [place] [address] [place] [address] [place] [address] [place] [address] [place] [address] [place] [address] [place] [address] [place] [address] [place] [address] [place] [address] [place] [address] [place] [address] HMO POS [facility] HMO POS [facility] HMO POS Care Teams General Office Assistant Relationship Specialty Start Date End Date Marybel Enriquez DO [address] [place] [address] PCP - General Internal Medicine 07/08/20 Additional Source Comments The information contained in this document represents components of the legal health record. It is not the complete legal health record.[facility]
--- OUTSIDE RECORDS SUMMARY | 2025-06-29 19:33 | XMS_ITS | Encounter Summary ---
Author Organization [facility] Address [address] [place] [address] Care Team Providers Care Inclusion Intern Name Role Phone Marybel Dunlap DO Primary Care Pro vider Unavailable Trista Gan MD Primary Care Provider Encounter Details Date Type Department Care Team Description 07/08/2020 Telephone Adult Medicine [address] [address] Marybel Dunlap DO Social History Tobacco Use [...] encounter Miscellaneous Notes * Telephone Encounter - Monique Pack R.N. - 07/08/2020 11:59 AM EDT Pt had teeth pulled and started amoxil , on Sunday she stated with itching all over, she has been taking benadryl several times a day, She has no chest pain or SOB, she is able to speak in full sentences with no stridor or wheezing, she has no facial swelling, has raised red barbosa on her face and on her arm, is itchy all over, benadryl is not working well Pt to go to urgent care now documented in this encounter Plan of Treatment Not on file documented as of this encounter Visit Diagnoses Not on filedocumented in this encounter Care Teams Inclusion Intern Relationship Specialty Start Date End Date Marybel Dunlap DO PCP - General Internal Medicine 05/19/13 02/17/21 Trista Gan MD [address] [place], [place] [phone] PCP - General Internal Medicine 02/18/21 documented as of this encounter
--- OUTSIDE RECORDS SUMMARY | 2025-06-29 19:33 | XMS_ITS | Encounter Summary ---
Author Organization [facility] Address [address] [place] [address] Care Team Providers Care Clerical Proofreader Name Role Phone Marybel Dunlap DO Primary Care Pro vider Unavailable Trista Gan MD Primary Care Provider [phone] Encounter Details Date Type Department Care Team Description 11/10/2019 Receiver Dispatcher Report Medical Records [address] [place] [address] Anali Martinez Social History Tobacco Use Types Packs/Day Years [...] on filedocumented in this encounter Care Teams Clerical Proofreader Relationship Specialty Start Date End Date Marybel Dunlap DO PCP - General Internal Medicine 05/19/13 02/17/21 Trista Gan MD [address] [place] [address] [phone] PCP - General Internal Medicine 02/18/21 documented as of this encounter
--- OUTSIDE RECORDS SUMMARY | 2025-06-29 19:33 | XMS_ITS | Encounter Summary ---
Author Organization [facility] Address [address] [place] [address] Care Team Providers Care Dual Hose Cementer Name Role Phone Trista Gan MD Primary Care Provider [phone] Reason for Referral * EXTERNAL (Routine) - Authorized/Booked Specialty Diagnoses / Procedures Referred By Contact Referred To Contact Allergy & Immunology / Allergy Procedures REFERRAL TO ALLERGY Stacey Guevara PA-C [address] [place] [address] Baudilio Jordan [address] [place] [address] Referral ID Status Reason Start Date Expiration Date V isits Requested Visits Authorized [id number] Authorized/ Booked 02/17/2022 05/23/2022 52 52 Reason for Visit * Reason Onset Date Comments REFERRAL 02/16/2022 Encounter Details Date Type Department Care Team Description 02/16/2022 Pt. Non Urgent Medical Question Adult Medicine [address] [address] Hayes Hood PA-C [address] [place] [address] Social History Tobacco Use Types Packs/Day Years [...] encounter Miscellaneous Notes * Telephone Encounter - Adalid Hood M.A. - 02/17/2022 9:27 AM EDTFrom: Kimi Benoit To: Berry Hood Sent: 02/16/2022 10:07 PM EDT Subject: referral for allergy shots May I get a referral to my allergy doctor's practice for a year's worth of allergy shots? My last referral was for only 6 visits. I go every 2-3 weeks and in the past referrals covered a full year. Thank you! I'll see you on Sunday for annual physical but hoping I can get the referral process goingtomorrow. documented in this encounter Plan of Treatment Not on file documented as of this encounter Visit Diagnoses Not on filedocumented in this encounter Care Teams Dual Hose Cementer Relationship Specialty Start Date End Date Trista Gan MD [address] [place] [phone] PCP - General Internal Medicine 02/18/21 documented as of this encounter
--- OUTSIDE RECORDS SUMMARY | 2025-06-29 19:33 | XMS_ITS | Encounter Summary ---
Author Organization [facility] Address [address] [place] [address] Care Team Providers Care Converter Supervisor Name Role Phone Marybel Dunlap DO Primary Care Pro vider Unavailable Trista Gan MD Primary Care Provider [phone] Reason for Visit * Reason Onset Date Comments Constipation 04/28/2020 had disimpaction at ER Encounter Details Date Type Department Care Team Description 04/28/2020 Pt. Non Urgent Medic al Question Adult Medicine [address] [address] Marybel Dunlap DO Social History Tobacco Use [...] encounter Miscellaneous Notes * Telephone Encounter - Yelitza Diaz M.A. - 04/29/2020 8:50 AM EDTFrom: Kimi Benoit To: Marybel Saravia DO Sent: 04/28/2020 9:51 PM EDT Subject: constipation Hi, on SundayApril 20, I was so severely constipated that I went to the Emergency Room for a disimpaction procedure. I had doubled my stool softener, took a vegetable laxative, and drank magnesiumcitrate, and had no relief. Since then I have had only one bowel movement, at the end of last week.I'm terrified of this happening again! I've doubled my stool softener again. I'll be talking with my psychiatrist on May 07 and will discuss going off Wellbutrin, which I understand could be the cause. In the meantime, what do you suggest I try? Thanks! documented in this encounter Plan of Treatment Not on file documented as of this encounter Visit Diagnoses Not on filedocumented in this encounter Care Teams Converter Supervisor Relationship Specialty Start Date End Date Marybel Dunlap DO PCP - General Internal Medicine 05/19/13 02/17/21 Trista Gan MD [address] [place] [address] PCP - General Internal Medicine 02/18/21 documented as of this encounter
--- OUTSIDE RECORDS SUMMARY | 2025-06-29 19:33 | XMS_ITS | Encounter Summary ---
Author Organization [facility] Address [address] [place] [address] Care Team Providers Care Access Manager Name Role Phone Trista Gan MD Primary Care Provider [phone] Encounter Details Date Type Department Care Team Description 02/19/2023 Pt. Non Urgent Medical Question Adult Medicine [address] [address] Trista Gan MD [address] [place] [address] Social History Tobacco Use Types Packs/Day Years [...] suspected to have Coronavirus/COVID-19? No / Unsure 02/22/2023 1:04 PM EDT documented as of this encounter Miscellaneous Notes * Telephone Encounter - Sanam Zelaya L.P.N. - 02/19/2023 10:09 AM EDTFrom: Kimi Benoit To: Luther Gan Sent: 02/19/2023 9:36 AM EDT Subject: need referral for allergy shots Stevan, to follow up on my message from last week about a new referral for allergy shots...I received another letter, dated 02-13-23, from [place] saying that my referral for allergy TESTING has been processed. As I noted before, I need a new referral for allergy SHOTS. I called Dr. Jordan's office this morning to see if they'd received the referral for shots, and they have not. My current referralexpires tomorrow, on February 20. Can you send a referral for allergy shots? Thank you. I will see you on for my scheduled visit. documented in this encounter Plan of Treatment Not on file documented as of this encounter Visit Diagnoses Not on filedocumented in this encounter Care Teams Access Manager Relationship Specialty Start Date End Date Trista Gan MD [address] [place] [address] PCP - General Internal Medicine 02/18/21 documented as of this encounter
== END 2025-06-29 15:20 | disposition home or self-care (01) ==
LOC: HO.HMGAL 15:20
PROVIDERS: PCP Internal Medicine; Visit Provider Registered Nurse Emergency
DX: J30.89 Other allergic rhinitis (principal)
CPT/HCPCS: 95117; 95165

== ENCOUNTER 2025-07-08 15:26 | Outpatient (AMB) | payer BC, SELFPAY ==
--- OUTSIDE RECORDS SUMMARY | 2025-07-08 19:47 | XMS_ITS | Encounter Summary ---
Author Organization [facility] Address [address] [place] [address] Care Team Providers Care Client Services Administrator Name Role Phone Marybel Dunlap DO Primary Care Pro vider Unavailable Trista Gan MD Primary Care Provider [phone] Encounter Details Date Type Department Care Team Description 09/07/2014 Technical Director Report Medical Records [address] [place] [address] Hay Purcell Social History Tobacco Use Types [...] on filedocumented in this encounter Care Teams Client Services Administrator Relationship Specialty Start Date End Date Marybel Dunlap DO PCP - General Internal Medicine 05/19/13 02/17/21 Trista Gan MD [address] [place] [address] [id number] PCP - General Internal Medicine 02/18/21 documented as of this encounter
--- OUTSIDE RECORDS SUMMARY | 2025-07-08 19:47 | XMS_ITS | Encounter Summary ---
Author Organization [facility] Address [address] [place] [address] Care Team Providers Care Adhesive Bandage Machine Operator Name Role Phone Marybel Dunlap DO Primary Care Pro vider Unavailable Trista Gan MD Primary Care Provider [phone] Reason for Referral * EXTERNAL (Routine) - Authorized/Booked Specialty Diagnoses / Procedures Referred By Contac t Referred To Contact Allergy & Immunology / Allergy Procedures REFERRAL TO ALLERGY Marybel Dunlap DO [address] [place] [address] Baudilio Jordan Saurabh [address] [place] [address] Referral ID Status Reason Start Date Expiration Date V isits Requested Visits Authorized SEE NOTE Authorized/B ooked 07/03/2019 10/03/2019 1 1 Encounter Details Date Type Department Care Team Description 07/03/2019 Orders Only Adult Medicine [facility] [place] [place] [address] [place] [address] Marybel Dunlap DO Social History Tobacco Use [...] on filedocumented in this encounter Care Teams Adhesive Bandage Machine Operator Relationship Specialty Start Date End Date Marybel Dunlap DO PCP - General Internal Medicine 05/19/13 02/17/21 Trista Gan MD [address] [place] [address] PCP - General Internal Medicine 02/18/21 documented as of this encounter
--- OUTSIDE RECORDS SUMMARY | 2025-07-08 19:47 | XMS_ITS | Encounter Summary ---
Author Organization [facility] Address [address] [place] [address] Care Team Providers Care Dynamotor Repairer Name Role Phone Marybel Dunlap DO Primary Care Pro vider Unavailable Trista Gan MD Primary Care Provider [phone] Reason for Visit * Reason Comments E-prescribe Rx Request Encounter Details Date Type Department Care Team Description 12/29/2018 Refill Adult Medicine [address] [address] Marybel Dunlap DO E-prescribe Rx Request Social [...] an upcoming appointment? No-[facility] for [facility] due [...] ?? Patients current insurance carrier is: Payor: [facility]/[employer] FFS / Plan: [employer] $20 [employer] [id number] / ProductType: HMO Mdt-hhy-Cwynaog ? documented in this encounter Plan of Treatment Not on file documented as of this encounter Visit Diagnoses Not on filedocumented in this encounter Care Teams Dynamotor Repairer Relationship Specialty Start Date End Date Marybel Dunlap DO PCP - General Internal Medicine 05/19/13 02/17/21 Trista Gan MD [address] [place] [address] PCP - General Internal Medicine 02/18/21 documented as of this encounter
--- OUTSIDE RECORDS SUMMARY | 2025-07-08 19:47 | XMS_ITS | Encounter Summary ---
Author Organization [facility] Address [address] [place] [address] Care Team Providers Care Pickling Tank Operator Name Role Phone Marybel Dunlap DO Primary Care Pro vider Unavailable rTista Gan MD Primary Care Provider [phone] Encounter Details Date Type Department Care Team Description 04/20/2020 Pt. Non Urgent Medic al Question Adult Medicine [address] [address] Marybel Dunlap DO Social History Tobacco Use [...] encounter Miscellaneous Notes * Telephone Encounter - Daimond Cage C.M.A. - 04/20/2020 9:44 AM EDTFrom: Kimi Benoit To: Marybel Saravia DO Sent: 04/20/2020 6:29 AM EDT Subject: severe constipation Pt 2 I finally have the urge to go, but nothing's moving. The stool is pressing all around my rectum. I think I'm going to have a humdinger of a hemorrhoid when this is over. documented in this encounter Plan of Treatment Not on file documented as of this encounter Visit Diagnoses Not on filedocumented in this encounter Care Teams Pickling Tank Operator Relationship Specialty Start Date End Date Marybel Dunlap DO PCP - General Internal Medicine 05/19/13 02/17/21 Trista Gan MD [address] [place] [address] PCP - General Internal Medicine 02/18/21 documented as of this encounter
--- OUTSIDE RECORDS SUMMARY | 2025-07-08 19:47 | XMS_ITS | Encounter Summary ---
Author Organization [facility] Address [address] [place] [address] Care Team Providers Care Rotary Furnace Tender Name Role Phone Trista Gan MD Primary Care Provider [phone] Encounter Details Date Type Department Care Team Description 02/09/2022 E Commerce Architect Report Medical Records [address] [place] [address] Jakob Ryan [address] [place] [address] Social History Tobacco Use Types Packs/Day Years [...] on filedocumented in this encounter Care Teams Rotary Furnace Tender Relationship Specialty Start Date End Date Trista Gan MD [address] [place] [address] PCP - General Internal Medicine 02/18/21 documented as of this encounter
--- OUTSIDE RECORDS SUMMARY | 2025-07-08 19:47 | XMS_ITS | Encounter Summary ---
Author Organization [facility] Address [address] [place] [address] Care Team Providers Care Farm Field Manager Name Role Phone Trista Gan MD Primary Care Provider [phone] Encounter Details Date Type Department Care Team Description 04/21/2024 Pt. Non Urgent Medical Question Adult Medicine [address] [address] Trista Gan MD [address] [place] [address] Social History Tobacco Use Types Packs/Day Years [...] Telephone Encounter - Yelitza Diaz M.A. - 04/22/2024 7:29 AM EDTFrom: Kimi Benoit To: Luther Gan Sent: 04/21/2024 8:46 PM EDT Subject: Still concerned about refill The last message from your office was around 4:15 and said again that the refill request was denied. Could I get a phone call Sunday about this? [phone] or [phone]. Thank you. documented in this encounter Plan of Treatment Not on file documented as of this encounter Visit Diagnoses Not on filedocumented in this encounter Care Teams Farm Field Manager Relationship Specialty Start Date End Date Trista Gan MD [address] [place] [address] PCP - General Internal Medicine 02/18/21 documented as of this encounter
--- OUTSIDE RECORDS SUMMARY | 2025-07-08 19:47 | XMS_ITS | Encounter Summary ---
Author Organization [facility] Address [address] [place] [address] Care Team Providers Care Ship Keeper Name Role Phone Trista Gan MD Primary Care Provider [phone] Encounter Details Date Type Department Care Team Description 04/21/2021 Telephone [facility] [address] [place] [address] Chaitanya Gómez, PA-C [address] [place] [address] Social History Tobacco Use Types Packs/Day Years [...] on filedocumented in this encounter Care Teams Ship Keeper Relationship Specialty Start Date End Date Trista Gan MD [address] [place] [address] PCP - General Internal Medicine 02/18/21 documented as of this encounter
--- OUTSIDE RECORDS SUMMARY | 2025-07-08 19:47 | XMS_ITS | Encounter Summary ---
Author Organization [facility] Address [address] [place] [address] Care Team Providers Care Photocomposing Machine Operator Name Role Phone Trista Gan MD Primary Care Provider [phone] Encounter Details Date Type Department Care Team Description 12/28/2022 Hospital Medical Records [address] [place] [address] [facility] Social History Tobacco Use Types Packs/Day [...] on filedocumented in this encounter Care Teams Photocomposing Machine Operator Relationship Specialty Start Date End Date Trista Gan MD [address] [place] [address] PCP - General Internal Medicine 02/18/21 documented as of this encounter
--- OUTSIDE RECORDS SUMMARY | 2025-07-08 19:47 | XMS_ITS | Encounter Summary ---
Author Organization [facility] Address [address] [place] [address] Care Team Providers Care Mechanical Cad Designer Name Role Phone Jorge Gan MD Primary Care Provider Reason for Visit * Reason Onset Date Comments Network Contract Manager Feedback 07/22/2021 [facility] Encounter Details Date Type Department Care Team Description 07/22/2021 Telephone Adult Medicine [address] [phone] Jorge Gan MD [address] [place] [address] [phone] Network Contract Manager Feedback ([facility]) Social History Tobacco [...] Radhara Hua - 07/22/2021 8:27 AM EST [facility] Outpatient Status [ Save Response to Batch ] Request: [id number] [facility] Healthcare Trace #: [id number] Subscriber Submitter : JORGE GAN Submitter Type: Provider : 1960 Provider Role: Primary Care Physician Health Care Event (#[id number]) Health Services Review Type: Initial Certification Status : Certified in total Service Type : Physical Medicine Place Of Service : Office Visits : 14 Service Date : 05/06/2021-09/09/2021 Service Providers ID Provider Type Specialty NPI : [id number] Performing Physical Therapist Diagnosis Diagnosis Date Code Description 05/06/2021 M54.5 LOW BACK PAIN * Telephone Encounter - Ignacia Mae - 07/22/2021 7:42 AM EST What insurance does the patient have today? Payor: [employer]/HMO FFS / Plan: HMO $30 [employer] [id number] / Product Type: HMO PRE-PAID Effective 06/10/09: [facility] will not retro referral requests over 90 [...] insurance must be obtained and registered in [facility] or their referral can not be [...] this specialty: Patient saw Lavelle Kathleen at [facility] for the problem and was told [...] NO Is this visit:Initial Visit Address of Specialist:[facility] [address] [place], [place] [address] Phone # of Specialist:[phone] Fax #: (if applicable):[phone] Does patient have an appointment scheduled?: YES Date of appointment- (including a retro-request): services provided from 05/06/21 - 06/30/21 Is this appointment related to: Not MVA, WC or Surgery related documented in this encounter Plan of Treatment Not on file documented as of this encounter Visit Diagnoses Not on filedocumented in this encounter Care Teams Mechanical Cad Designer Relationship Specialty Start Date End Date Jorge Gan MD [address] [place] [address] PCP - General Internal Medicine 02/18/21 documented as of this encounter
--- OUTSIDE RECORDS SUMMARY | 2025-07-08 19:47 | XMS_ITS | Encounter Summary ---
Author Organization [facility] Address [address] [place] [address] Care Team Providers Care Dinkey Dispatcher Name Role Phone Marybel Dunlap DO Primary Care Pro vider Unavailable Trista Gan MD Primary Care Provider [phone] Reason for Referral * EXTERNAL (Urgent) - Authorized/Booked Specialty Diagnoses / Procedures Referred By Contac t Referred To Contact Podiatry Procedures REFERRAL TO PODIATRY (OUT OF NETWORK) Marybel Dunlap DO [address] [place] [address] Smooth Cooper [address] [place] [phone] Referral ID Status Reason Start Date Expiration Date V isits Requested Visits Authorized SEE NOTE Authorized/B ooked 07/17/2019 10/21/2019 1 1 Encounter Details Date Type Department Care Team Description 07/17/2019 Orders Only Adult Medicine [facility] [address] [place] [address] Marybel Dunlap DO Social History Tobacco Use [...] on filedocumented in this encounter Care Teams Dinkey Dispatcher Relationship Specialty Start Date End Date Marybel Dunlap DO PCP - General Internal Medicine 05/19/13 02/17/21 Trista Gan MD [address] [place] [address] PCP - General Internal Medicine 02/18/21 documented as of this encounter
--- OUTSIDE RECORDS SUMMARY | 2025-07-08 19:47 | XMS_ITS | Encounter Summary ---
Author Organization [facility] Address [address] [place] [address] Care Team Providers Care Rehab Director Occupational Therapist Name Role Phone Trista Gan MD Primary Care Provider [phone] Encounter Details Date Type Department Care Team Description 02/19/2023 Pt. Non Urgent Medical Question Adult Medicine [address] [address] Trista Gan MD [address] [place] [address] Social History Tobacco Use Types Packs/Day Years [...] shots...I received another letter, dated 02-13-23, from [place] saying that my referral for allergy TESTING [...] on filedocumented in this encounter Care Teams Rehab Director Occupational Therapist Relationship Specialty Start Date End Date Trista Gan MD [address] [place] [address] PCP - General Internal Medicine 02/18/21 documented as of this encounter
--- OUTSIDE RECORDS SUMMARY | 2025-07-08 19:47 | XMS_ITS | Encounter Summary ---
Author Organization [facility] Address [address] [place] [address] Care Team Providers Care Shirt Folder Name Role Phone Trista Gan MD Primary Care Provider [phone] Reason for Visit * Reason Onset Date Comments Provider Call Back 09/29/2021 Encounter Details Date Type Department Care Team Description 09/29/2021 Telephone Adult Medicine [address] [address] Trista Gan MD [address] [place] [address] [phone] Provider Call Back Social History Tobacco Use Types Packs/Day Years [...] have Coronavirus / COVID-19? No / Unsure 09/23/2021 10:55 AM EST documented as of this encounter Miscellaneous Notes * Telephone Encounter - Gertrude Monreal - 09/30/2021 10:36 AM EST Patient scheduled for 10/18/2021 Darius Hood to discuss back pain. * Telephone Encounter - Hayes Hood PA-C - 09/29/2021 5:48 PM EST I saw the patient for medication review. She had additional complaints of pain which were not addressed due to time restraints. I suggested she return for a sick visit for further evaluation and discuss possible referral to pain management. I have tried to call the patient twice now to discuss thiswithout success. Please try calling her again tomorrow and encouraged her to schedule sick visit for any ongoing back pain. * Telephone Encounter - Chrissy Grayson M.A. - 09/29/2021 3:19 PM EST Were you going to place referral? * Telephone Encounter - Chrissy Grayson M.A. - 09/29/2021 1:26 PM EST Please see msg below and advise Pt requesting referral for pain management * Telephone Encounter - Lisa Cota - 09/29/2021 1:17 PM EST Caller requesting call back from provider: Is the caller the patient? YES If caller is not the patient, what is the callers name? N/A Callers relationship to patient? N/A If person calling is not the patient themselves, is there a verbal release in FYI or permanent comments for this person: NO Reason for call back: Patient is calling to ask provider if a referral to a oil paint shader could be placed. She says that at her last office visit with Hayes Hood they had discussed the option of her seeing a oil paint shader. Patient does not have a location in mind and would prefer that the provider refer her. Caller offered to speak with the nurse for assistance: YES Response: Patient offered to speak with nurse for assistance and patient agreed. Message forwarded to nurse. documented in this encounter Plan of Treatment Not on file documented as of this encounter Visit Diagnoses Not on filedocumented in this encounter Care Teams Shirt Folder Relationship Specialty Start Date End Date Trista Gan MD [address] [place] [address] PCP - General Internal Medicine 02/18/21 documented as of this encounter
--- OUTSIDE RECORDS SUMMARY | 2025-07-08 19:47 | XMS_ITS | Encounter Summary ---
Author Organization [facility] Address [address] [place] [address] Care Team Providers Care Nuclear Design Engineer Name Role Phone Marybel Dunlap DO Primary Care Pro vider Unavailable Trista Gan MD Primary Care Provider [phone] Encounter Details Date Type Department Care Team Description 06/01/2019 Pt. Non Urgent Medical Question Pulmonology - [place] [address] [facility] [address] [place] [id number] Britney Worley FNP [address] [place] [address] Social History Tobacco Use Types Packs/Day Years [...] on filedocumented in this encounter Care Teams Nuclear Design Engineer Relationship Specialty Start Date End Date Marybel Dunlap DO PCP - General Internal Medicine 05/19/13 02/17/21 Trista Gan MD [address] [place] [address] PCP - General Internal Medicine 02/18/21 documented as of this encounter
--- OUTSIDE RECORDS SUMMARY | 2025-07-08 19:47 | XMS_ITS | Encounter Summary ---
Author Organization [facility] Address [address] [place] [address] Care Team Providers Care Ship Cleaner Name Role Phone Marybel Dunlap DO Primary Care Pro vider Unavailable Trista Gan MD Primary Care Provider [phone] Encounter Details Date Type Department Care Team Description 08/26/2018 Financial Analysis Manager Report Medical Records [address] [place] [address] Anali Martinez Social History Tobacco Use Types [...] filedocumented in this encounter Care Teams Ship Cleaner Relationship Specialty Start Date End Date Marybel Dunlap DO PCP - General Internal Medicine 05/19/13 02/17/21 Trista Gan MD [address] [place] [address] [phone] PCP - General Internal Medicine 02/18/21 documented as of this encounter
--- OUTSIDE RECORDS SUMMARY | 2025-07-08 19:47 | XMS_ITS | Encounter Summary ---
Author Organization [facility] Address [address] [place] [address] Care Team Providers Care Qa Auditor Name Role Phone Marybel Dunlap DO Primary Care Pro vider Unavailable Trista Gan MD Primary Care Provider Encounter Details Date Type Department Care Team Description 06/21/2020 Pt. Non Urgent Medic al Question Adult Medicine [address] [address] Marybel Dunlap DO Social History Tobacco Use [...] lithium blood level My psychiatrist (not a [facility] employee) has asked me to get a blood lithium level. He said he would send the request/referral to the [facility] lab. The lab, however, does not have anything on filefor me. I believe that the request has to come from my [facility] provider. Would you be able to make this request? I will need to schedule the time of the test since timing is important. Thanks for your help! documented in this encounter Plan of Treatment Not on file documented as of this encounter Visit Diagnoses Not on filedocumented in this encounter Care Teams Qa Auditor Relationship Specialty Start Date End Date Marybel Dunlap DO PCP - General Internal Medicine 05/19/13 02/17/21 Trista Gan MD [address] [place] [address] PCP - General Internal Medicine 02/18/21 documented as of this encounter
--- OUTSIDE RECORDS SUMMARY | 2025-07-08 19:47 | XMS_ITS | Encounter Summary ---
Author Organization [facility] Address [address] [place] [address] Care Team Providers Care Line Erector Apprentice Name Role Phone Trista Gan MD Primary Care Provider [phone] Encounter Details Date Type Department Care Team Description 07/07/2021 [place] Machine Operator Helper Report Medical Records [address] [place] [address] Isi Ballesteros Social History Tobacco Use Types [...] on filedocumented in this encounter Care Teams Line Erector Apprentice Relationship Specialty Start Date End Date Trista Gan MD [address] [place] [address] PCP - General Internal Medicine 02/18/21 documented as of this encounter
--- OUTSIDE RECORDS SUMMARY | 2025-07-08 19:47 | XMS_ITS | Encounter Summary ---
Author Organization [facility] Address [address] [place] [address] Care Team Providers Care Swatch Maker Name Role Phone Trista Gan MD Primary Care Provider [phone] Reason for Visit * Reason Onset Date Comments refill request 07/09/2021 Encounter Details Date Type Department Care Team Description 07/09/2021 Refill Adult Ur[facility] - [place] [phone] Trista Gan MD [address] [place] [address] [phone] refill request Social History Tobacco Use Types [...] N/A Patients current insurance carrier is: Payor: [employer] FFS / Plan: [employer] $30 [employer] [id number] / ProductType: HMO PRE-PAID documented in this encounter Plan of Treatment Not on file documented as of this encounter Visit Diagnoses Not on filedocumented in this encounter Care Teams Swatch Maker Relationship Specialty Start Date End Date Trista Gan MD [address] [place] [address] PCP - General Internal Medicine 02/18/21 documented as of this encounter
--- OUTSIDE RECORDS SUMMARY | 2025-07-08 19:47 | XMS_ITS | Encounter Summary ---
Author Organization [facility] Address [address] [place] [address] Care Team Providers Care Photographer Apprentice Name Role Phone Trista Gan MD Primary Care Provider [phone] Encounter Details Date Type Department Care Team Description 04/21/2021 Telephone [facility] [address] [place] [address] Chaitanya Gómez, PA-C [address] [place] [address] Social History Tobacco Use Types Packs/Day Years [...] on filedocumented in this encounter Care Teams Photographer Apprentice Relationship Specialty Start Date End Date Trista Gan MD [address] [place] [address] PCP - General Internal Medicine 02/18/21 documented as of this encounter
--- OUTSIDE RECORDS SUMMARY | 2025-07-08 19:47 | XMS_ITS | Encounter Summary ---
Author Organization [facility] Address [address] [place] [address] Care Team Providers Care Oil Field Technician Name Role Phone Marybel Dunlap DO Primary Care Pro vider Unavailable Trista Gan MD Primary Care Provider [phone] Reason for Visit * Reason Onset Date Comments Dolphin Trainer Feedback 07/18/2019 Podiatry Encounter Details Date Type Department Care Team Description 07/18/2019 Telephone Adult Medicine [address] [address] Marybel Dunlap DO Dolphin Trainer Feedback (Podiatry) Social History Tobacco Use Types [...] Monasonia West - 07/18/2019 9:[address] [place], You put in an Urgent referral for this patient to see Dr. Smooth Cooper at [facility]. I called to schedule and spoke [...] on filedocumented in this encounter Care Teams Oil Field Technician Relationship Specialty Start Date End Date Marybel Dunlap DO PCP - General Internal Medicine 05/19/13 02/17/21 Trista Gan MD [address] [place] [address] PCP - General Internal Medicine 02/18/21 documented as of this encounter
--- OUTSIDE RECORDS SUMMARY | 2025-07-08 19:47 | XMS_ITS | Encounter Summary ---
Author Organization [facility] Address [address] [place] [address] Care Team Providers Care Direct Service Worker Name Role Phone Jorge Gan MD Primary Care Provider [phone] Reason for Visit * Reason Onset Date Comments Patient Transport Officer Feedback 09/08/2021 [facility] Encounter Details Date Type Department Care Team Description 09/08/2021 Telephone Adult Medicine [facility] [address] [place] [address] [phone] Jorge Gan MD [address] [place] [address] Patient Transport Officer Feedback ([facility]) Social History Tobacco Use Types Packs/Day Years [...] have Coronavirus / COVID-19? No / Unsure 08/31/2021 8:30 AM EST documented as of this encounter Miscellaneous Notes * Telephone Encounter - Radhara Hua - 09/08/2021 10:59 AM EST [facility] Specialty Referral Status[ Save Response to Batch ] Request: [id number] [facility] Trace #: [id number] Patient: ARIELLE BENOIT : 1960 Subscriber: ERNIE BENOIT Submitter : JORGE GAN Submitter Type: Provider Referral (#[id number]) Specialty Care Review Type: Initial Certification Status : Certified in total Service Type : Medical Care Place Of Service : Office Visits : 6 Service Date : 09/05/2021-09/05/2022 Service Providers Provider Name ID Provider Type Specialty AUGUSTUS HIGGINBOTHAM NPI : [id number] Performing Specialist documented in this encounter Plan of Treatment Not on file documented as of this encounter Visit Diagnoses Not on filedocumented in this encounter Care Teams Direct Service Worker Relationship Specialty Start Date End Date Jorge Gan MD [address] [place] [address] PCP - General Internal Medicine 02/18/21 documented as of this encounter
--- OUTSIDE RECORDS SUMMARY | 2025-07-08 19:47 | XMS_ITS | Encounter Summary ---
Author Organization [facility] Address [address] [place] [address] Care Team Providers Care Junior Assistant Manager Name Role Phone Marybel Dunlap DO Primary Care Pro vider Unavailable Trista Gan MD Primary Care Provider Reason for Visit * Reason Onset Date Comments refill request 10/21/2018 Encounter Details Date Type Department Care Team Description 10/21/2018 Refill Adult Medicine [address] [address] Marybel Dunlap DO refill request Social History Tobacco [...] N/A Patients current insurance carrier is: Payor: [facility]/[employer] FFS / Plan: Give[employer]urance $15 [email or web address] [id number] / ProductType: [employer] [id number] documented in this encounter Plan of Treatment Not on file documented as of this encounter Visit Diagnoses Not on filedocumented in this encounter Care Teams Junior Assistant Manager Relationship Specialty Start Date End Date Marybel Dunlap DO PCP - General Internal Medicine 05/19/13 02/17/21 Trista Gan MD [address] [place] [address] [phone] PCP - General Internal Medicine 02/18/21 documented as of this encounter
--- OUTSIDE RECORDS SUMMARY | 2025-07-08 19:47 | XMS_ITS | Encounter Summary ---
Author Organization [facility] Address [address] [place] [address] Care Team Providers Care Production Tester Name Role Phone Marybel Dunlap DO Primary Care Pro vider Unavailable Trista Gan MD Primary Care Provider [phone] Encounter Details Date Type Department Care Team Description 07/01/2019 Pt. Non Urgent Medical Question Pulmonology - [place] [address] [facility] [address] [place] [id number] Britney Worley FNP [address] [place] [address] Social History Tobacco Use Types Packs/Day Years [...] on filedocumented in this encounter Care Teams Production Tester Relationship Specialty Start Date End Date Marybel Dunlap DO PCP - General Internal Medicine 05/19/13 02/17/21 Trista Gan MD [address] [place] [address] PCP - General Internal Medicine 02/18/21 documented as of this encounter
--- OUTSIDE RECORDS SUMMARY | 2025-07-08 19:47 | XMS_ITS | Encounter Summary ---
Author Organization [facility] Address [address] [place] [address] Care Team Providers Care Metal Template Maker Name Role Phone Marybel Dunlap DO Primary Care Pro vider Unavailable Trista Gan MD Primary Care Provider [phone] Reason for Visit * Reason Onset Date Comments Constipation 04/28/2020 had disimpaction at ER Encounter Details Date Type Department Care Team Description 04/28/2020 Pt. Non Urgent Medic al Question Adult Medicine [address] [address] Marybel Dunlap DO Social History Tobacco Use [...] on filedocumented in this encounter Care Teams Metal Template Maker Relationship Specialty Start Date End Date Marybel Dunlap DO PCP - General Internal Medicine 05/19/13 02/17/21 Trista Gan MD [address] [place] [address] PCP - General Internal Medicine 02/18/21 documented as of this encounter
--- OUTSIDE RECORDS SUMMARY | 2025-07-08 19:47 | XMS_ITS | Encounter Summary ---
Author Organization [facility] Address [address] [place] [address] Care Team Providers Care Funeral Sales Manager Name Role Phone Marybel Dunlap DO Primary Care Pro vider Unavailable Trista Gan MD Primary Care Provider [phone] Encounter Details Date Type Department Care Team Description 07/22/2018 Youtuber Report Medical Records [address] [place] [address] Papa Zepeda PA-C Social History Tobacco Use [...] on filedocumented in this encounter Care Teams Funeral Sales Manager Relationship Specialty Start Date End Date Marybel Dunlap DO PCP - General Internal Medicine 05/19/13 02/17/21 Trista Gan MD [address] [place] [address] [phone] PCP - General Internal Medicine 02/18/21 documented as of this encounter
--- OUTSIDE RECORDS SUMMARY | 2025-07-08 19:47 | XMS_ITS | Encounter Summary ---
Author Organization [facility] Address [address] [place] [address] Care Team Providers Care Armature Rewinder Name Role Phone Marybel Dunlap DO Primary Care Pro vider Unavailable Trista Gan MD Primary Care Provider [phone] Encounter Details Date Type Department Care Team Description 08/08/2018 Biomedical Repair Technician Report Medical Records [address] [place] [address] Sophie Goldberg Social History Tobacco Use Types Packs/Day Years [...] on filedocumented in this encounter Care Teams Armature Rewinder Relationship Specialty Start Date End Date Marybel Dunlap DO PCP - General Internal Medicine 05/19/13 02/17/21 Trista Gan MD [address] [place] [address] [phone] PCP - General Internal Medicine 02/18/21 documented as of this encounter
--- OUTSIDE RECORDS SUMMARY | 2025-07-08 19:47 | XMS_ITS | Encounter Summary ---
Author Organization [facility] Address [address] [place] [address] Care Team Providers Care Infrastructure Technician Name Role Phone Marybel Dunlap DO Primary Care Pro vider Unavailable Trista Gan MD Primary Care Provider Encounter Details Date Type Department Care Team Description 02/02/2021 Orders Only Adult Medicine [address] [address] Marybel Dunlap DO Need for prophylactic vaccination with combined vmixhtfvcs-euofdsc-svceo ssis (DTP) vaccine (Primary Dx) Social History [...] Procedure Name Priority Date/Time Associated Diagnosis Comments AL TDAP VACCINE 7 YRS/> IM Routine 02/02/2021 10:55 AM EDT Need for prophylactic vaccination with combined hxueiprygr-lyugyep-glzqk ssis (DTP) vaccine documented in this encounter Visit Diagnoses Diagnosis Need for prophylactic vaccination with combined dusdjvfyuf-eduagyd-amqfdqkdh (DTP) vaccine- Primary documented in this encounter Care Teams Infrastructure Technician Relationship Specialty Start Date End Date Marybel Dunlap DO PCP - General Internal Medicine 05/19/13 02/17/21 Trista Gan MD [address] [place] [address] PCP - General Internal Medicine 02/18/21 documented as of this encounter
--- OUTSIDE RECORDS SUMMARY | 2025-07-08 19:47 | XMS_ITS | Encounter Summary ---
Author Organization [facility] Address [address] [place] [address] Care Team Providers Care Education Manager Name Role Phone Marybel Dunlap DO Primary Care Pro vider Unavailable Trista Gan MD Primary Care Provider [phone] Encounter Details Date Type Department Care Team Description 08/18/2020 Orders Only Adult Medicine [address] [address] Marybel Dunlap DO Hypothyroidism, unspecified type (Primary Dx) Social History Tobacco Use Types [...] on file documented as of this encounter Results * TSH (11/10/2020 3:20 PM EST) TSH 1.40 0.40 - 4.00 uIU/ml 11/10/2020 7:06 PM EST [facility] 11/10/2020 3:20 PM EST 11/10/2020 3:21 PM EST Marybel Saravia DO LAB [facility] documented in this encounter Visit Diagnoses Diagnosis Hypothyroidism, unspecified type- Primary documented in this encounter Care Teams Education Manager Relationship Specialty Start Date End Date Marybel Dunlap DO PCP - General Internal Medicine 05/19/13 02/17/21 Trista Gan MD [address] [place] [address] PCP - General Internal Medicine 02/18/21 documented as of this encounter
--- OUTSIDE RECORDS SUMMARY | 2025-07-08 19:47 | XMS_ITS | Encounter Summary ---
Author Organization [facility] Address [address] [place] [address] Care Team Providers Care Marketing Project Coordinator Name Role Phone Trista Gan MD Primary Care Provider [phone] Encounter Details Date Type Department Care Team Description 08/02/2021 Pt. Referral Request [facility] MyChart [address] [place] [address] Md Oscar Social History Tobacco Use Types [...] on filedocumented in this encounter Care Teams Marketing Project Coordinator Relationship Specialty Start Date End Date Trista Gan MD [address] [place] [phone] PCP - General Internal Medicine 02/18/21 documented as of this encounter
--- OUTSIDE RECORDS SUMMARY | 2025-07-08 19:48 | XMS_ITS | Encounter Summary ---
Author Organization [facility] Address [address] [place] [address] Care Team Providers Care Sewer Pipe Layer Name Role Phone Marybel Dunlap DO Primary Care Pro vider Unavailable Trista Gan MD Primary Care Provider [phone] Encounter Details Date Type Department Care Team Description 09/19/2017 Washhouse Worker Report Medical Records [address] [place] [address] [address] [place] [address] Social History Tobacco Use Types Packs/Day Years [...] on filedocumented in this encounter Care Teams Sewer Pipe Layer Relationship Specialty Start Date End Date Marybel Dunlap DO PCP - General Internal Medicine 05/19/13 02/17/21 Trista Gan MD [address] [place] [address] [phone] PCP - General Internal Medicine 02/18/21 documented as of this encounter
--- OUTSIDE RECORDS SUMMARY | 2025-07-08 19:48 | XMS_ITS | Encounter Summary ---
Author Organization [facility] Address [address] [place] [address] Care Team Providers Care Pathology Assistant Name Role Phone Jorge Gan MD Primary Care Provider [phone] Reason for Visit * Reason Onset Date Comments Camera Repairer Feedback 03/27/2023 Insurance Auth P odiatry Encounter Details Date Type Department Care Team Description 03/27/2023 Telephone Adult Medicine [address] [phone] Jorge Gan MD [address] [place] [address] Camera Repairer Feedback (Insurance Auth Podiatry ) Social History [...] Non-Person Entity UMO Last or Organization Name: [facility] Payor ID: [id number] REQUESTER: Entity Identifier: Provider Entity Type: Person Requester Last or Organization Name: ALICJA Requester First Name: JROGE Requester Middle Name: Srinivasa [facility] for Medicare and Medicaid Services SUBSCRIBER: ERNIE BETANCOURT DEPENDENT: ARIELLE BETANCOURT Dependent Demographic Information Date of : [id number] PATIENT EVENT: Healthcare Services Review Information Request Category: SC (Specialty Care Review) Certification Type: I (Initial) Service Type: 3 (Consultation) Healthcare Service Location Info: 11 (Place of Service Codes for Professional or Dental Services) Level of Service: Elective Healthcare Services Review Certification Action: A1 (Certified in total) Review Identification Number: [id number] Patient Event Dates Proposed or Actual Event Date: Healthcare Services Delivery 12 Visit per every for Patient Event Provider Name Entity Identifier: Service Provider Entity Type: Person Requester Last or Organization Name: [facility] Requester First Name: VALERY Requester Middle Name: Darlene [facility] for Medicare and Medicaid Services Patient Event Provider Information Provider: PE - Performing Provider Taxonomy Code: [id number] documented in this encounter Plan of Treatment Not on file documented as of this encounter Visit Diagnoses Not on filedocumented in this encounter Care Teams Pathology Assistant Relationship Specialty Start Date End Date Jorge Gan MD [address] [place] [address] PCP - General Internal Medicine 02/18/21 documented as of this encounter
--- OUTSIDE RECORDS SUMMARY | 2025-07-08 19:48 | XMS_ITS | Encounter Summary ---
Author Organization [facility] Address [address] [place] [address] Care Team Providers Care Silverlight Developer Name Role Phone Marybel Dunlap DO Primary Care Pro vider Unavailable Tritsa Gan MD Primary Care Provider [phone] Encounter Details Date Type Department Care Team Description 06/10/2013 Release of Information Medical Records [address] [place] [address] Abstract, Provider Social History Tobacco Use Types [...] on filedocumented in this encounter Care Teams Silverlight Developer Relationship Specialty Start Date End Date Marybel Dunlap DO PCP - General Internal Medicine 05/19/13 02/17/21 Trista Gan MD [address] [place] [id number] PCP - General Internal Medicine 02/18/21 documented as of this encounter
--- OUTSIDE RECORDS SUMMARY | 2025-07-08 19:48 | XMS_ITS | Encounter Summary ---
Author Organization [facility] Address [address] [place] [address] Care Team Providers Care Chili Maker Name Role Phone Marybel Dunlap DO Primary Care Pro vider Unavailable Trista Gan MD Primary Care Provider [phone] Encounter Details Date Type Department Care Team Description 06/09/2013 Rehab Consultant Report Medical Records [address] [place] [address] Smooth Cooper Social History Tobacco Use Types [...] on filedocumented in this encounter Care Teams Chili Maker Relationship Specialty Start Date End Date Marybel Dunlap DO PCP - General Internal Medicine 05/19/13 02/17/21 Trista Gan MD [address] [place] [address] [phone] PCP - General Internal Medicine 02/18/21 documented as of this encounter
--- OUTSIDE RECORDS SUMMARY | 2025-07-08 19:48 | XMS_ITS | Encounter Summary ---
Author Organization [facility] Address [address] [place] [address] Care Team Providers Care Forestry Fire Aide Name Role Phone Marybel Dunlap DO Primary Care Pro vider Unavailable Trista Gan MD Primary Care Provider [phone] Encounter Details Date Type Department Care Team Description 06/15/2016 Glass Washer Report Medical Records [address] [place] [address] Jakob Jeronimo MD Social History Tobacco Use Types Packs/Day Years [...] on filedocumented in this encounter Care Teams Forestry Fire Aide Relationship Specialty Start Date End Date Marybel Dunlap DO PCP - General Internal Medicine 05/19/13 02/17/21 Trista Gan MD [address] [place] [address] [phone] PCP - General Internal Medicine 02/18/21 documented as of this encounter
--- OUTSIDE RECORDS SUMMARY | 2025-07-08 19:48 | XMS_ITS | Encounter Summary ---
Author Organization [facility] Address [address] [place] [address] Care Team Providers Care Policy Analyst Name Role Phone Marybel Dunlap DO Primary Care Pro vider Unavailable Trista Gan MD Primary Care Provider [phone] Encounter Details Date Type Department Care Team Description 03/12/2014 Telephone Adult Medicine [address] [address] Marybel Dunlap DO Social History Tobacco Use [...] Telephone Encounter - Monique Pack R.N. - 03/12/2014 12:25 PM EDT Pt has been taking simvastatin for years and had had an over feeling of fatigue, aching muscles andgeneralized pain for a very long time, was discussing this with her psychiatrist and he suggested it might be related to statin 4 weeks ago she stopped taking her stain and within a week she felt great, was running and had moreenergy She decided she should not stop a medication without discussing with MD so she started taking again, with A short time the symptoms were all back She stopped the statin again a week ago, she has not had the dramatic resolution of symptoms as shedid the first time, but wanted dr raza pham to know she is off the statin now. * Telephone Encounter - Laureen Cadet M.A. - 03/12/2014 12:18 PM EDT PLEASE TRAIGE * Telephone Encounter - Marie Randhawa - 03/12/2014 11:23 AM EDT What is the name of the medication patient is having a problem with?: simvastatin (ZOCOR) 20 MG tablet What is the problem?: patient believes this medication is causing her aches and pain, so she will like to stop taking this medication. Is the patient calling about the problem? YES If the patient is not the caller who is? Is this a NEW medication?: YES How long has the patient been taking this medication? Who prescribed this medication for the patient? Who is patients PCP?: Marybel Enriquez Payor: [employer]/[facility] FFS / Plan: [employer] $15 [employer] [id number] / Product Type: HMO [id number]-[id number] documented in this encounter Plan of Treatment Not on file documented as of this encounter Visit Diagnoses Not on filedocumented in this encounter Care Teams Policy Analyst Relationship Specialty Start Date End Date Marybel Dunlap DO PCP - General Internal Medicine 05/19/13 02/17/21 Trista Gan MD [address] [place] [address] PCP - General Internal Medicine 02/18/21 documented as of this encounter
--- OUTSIDE RECORDS SUMMARY | 2025-07-08 19:48 | XMS_ITS | Encounter Summary ---
Author Organization [facility] Address [address] [place] [address] Care Team Providers Care Curb And Gutter Laborer Name Role Phone Trista Gan MD Primary Care Provider [phone] Reason for Visit * Reason Onset Date Comments Error 07/01/2025 Encounter Details Date Type Department Care Team (Late st Contact Info) Description 07/01/2025 Telephone Adult Medicine [facility] [address] [place], [place] [phone] Trista Gan MD [address] [place], [place] Social History Tobacco Use Types Packs/Day Years Used Date Smoking Tobacco: Never Smokeless Tobacco: Never Alcohol Use Standard Drinks/Week Comments No 0 (1 standard drink = 0.6 oz pur e alcohol) occasional Housing Instability Answer Date Recorde d Are you worried that in the next 2 months you may not have stable housing? No 05/28/2025 Food Access & Nutrition Answer Date Rec orded Do you have access to a vari ety of food including fruits and vegetables? Yes 05/28/2025 Access to Healthcare Answer Date Record ed Within the last 3 months, ho w many times did you visit the emergency department for your medical care? 0 05/28/2025 Health Literacy Answer Date Recorded How often do you need to hav e someone help you when you read instructions, pamphlets, or other written material from your doctor or pharmacy? Never 05/28/2025 Caregiver: How often do you need to have someone help you when you read instructions, pamphlets, or other written material from your doctor or pharmacy? Not on file 05/28/2025 Financial Risk Answer Date Recorded How hard is it for you to pa y for the very basics like food, housing, medical care, and air conditioning / heating? Not very hard 05/28/2025 Transportation Answer Date Recorded Has the lack of transportati on kept you from meetings, work, or from getting things needed for daily living? No Has the lack of transportati on kept you from medical appointments or from getting medications? No 05/28/2025 Social Isolation Answer Date Recorded How often do you feel lonely or isolated from those around you? Sometimes 05/28/2025 Food Risk Answer Date Recorded Within the past 12 months we worried whether our food would run out before we got money to buy more. Never true 05/28/2025 Within the past 12 months th e food we bought just didn't last and we didn't have money to get more. Never true 05/28/2025 Dependent Care Answer Date Recorded Do you need help finding or paying for care for your loved ones. For example, early childhood education coordinator or elderly care for an older adult? No 05/28/2025 Education Answer Date Recorded Do you think completing more education or training, like finishing a GED, going to college, or learning a trade, would be helpful for you? N/A 05/28/2025 Employment and Income Answer Date Recor ded During the last four weeks, have you been actively looking for work? No 05/28/2025 Living Situation Answer Date Recorded What is your living situation? Unrecognized valu e 05/28/2025 Interpersonal Safety Answer Date Record ed Physical Abuse Unrecognized value 07/26/2024 Verbal Abuse Unrecognized value 07/26/2024 Comments Unknown Sex and Gender Information Value Date Recorded Sex Assigned at Female 09/18/2024 2:55 PM EST Legal Sex Female 10:17 PM EST Gender Identity Female 09/18/2024 2:55 PM EST Sexual Orientation Choose not to disclose 2024 5:53 PM EDT Sexual Orientation Straight 03/23/2025 5: 53 PM EDT documented as of this encounter Plan of Treatment Upcoming Encounters Date Type Department Care Team (Late st Contact Info) Description 07/27/2025 11:45 AM EST Office Visit Pulmonology - [place] [address] [facility] [address] [place] [address] Jeanine Reinoso MD [address] [place] [phone] 11/25/2025 11:00 AM EDT Office Visit Adult Medicine [facility] [address] [place] [address] Trista Gan MD [address] [place] [address] documented as of this encounter Visit Diagnoses Not on filedocumented in this encounter Additional Health Concerns Assessment Noted Time PHQ-9 Depression Total Score: 2 05/28/20 25 5:56 PM EDT documented as of this encounter Care Teams Curb And Gutter Laborer Relationship Specialty Start Date End Date Trista Gan MD [address] [place] [address] PCP - General Internal Medicine 02/18/21 documented as of this encounter
--- OUTSIDE RECORDS SUMMARY | 2025-07-08 19:48 | XMS_ITS | Encounter Summary ---
Author Organization [facility] Address [address] [place] [address] Care Team Providers Care Grain Merchandising Manager Name Role Phone Trista Gan MD Primary Care Provider [phone] Encounter Details Date Type Department Care Team (Late st Contact Info) Description 06/12/2025 Results Follow-Up Adult Medicine [address] [phone] Anna Rutledge PA [address] [place], [place] Social History Tobacco Use Types Packs/Day [...] Record ed Within the last 3 months, daniel w many times did you visit the [...] care for your loved ones. For example, children's entertainer or elderly care for an older adult? [...] 11:45 AM EST Office Visit Pulmonology - [place] [address] [facility] [address] [place] [phone] Jeanine Reinoso MD [address] [place] [address] 11/25/2025 11:00 AM EDT Office Visit Adult Medicine [facility] [address] [place], [place] [phone] Trista Gan MD [address] [place], [place] documented as of this encounter Visit Diagnoses Not on filedocumented in this encounter Additional Health Concerns Assessment Noted Time PHQ-9 Depression Total Score: 2 05/28/20 25 5:56 PM EDT documented as of this encounter Care Teams Grain Merchandising Manager Relationship Specialty Start Date End Date Trista Gan MD [address] [place] [address] PCP - General Internal Medicine 02/18/21 documented as of this encounter
--- OUTSIDE RECORDS SUMMARY | 2025-07-08 19:48 | XMS_ITS | Encounter Summary ---
Author Organization [facility] Address [address] [place] [address] Care Team Providers Care Electrotyper Helper Name Role Phone Trista Gan MD Primary Care Provider [phone] Reason for Visit * Reason Onset Date Comments Medication Problem 06/12/2025 Encounter Details Date Type Department Care Team ([facility] st Contact Info) Description 06/12/2025 Telephone Pulmonology - [address] [place] [address] Jeanine Reinoso MD [address] [place] [phone] Social History Tobacco Use Types Packs/Day Years [...] your loved ones. For example, early childhood lead teacher or elderly care for an older adult? [...] PM EDT documented as of this encounter Progress Notes * Jeanine Reinoso MD - 06/15/2025 6:25 PM EDT Inform patient order sent. * Racheal Saha MA - 06/15/2025 10:26 AM EDT wants her prescription sent to [facility] with a 3 month supply * Racheal Saha MA - 06/15/2025 8:20 AM EDT Left vm to call back the office to confirm the pharmacy * Jeanine Reinoso MD - 06/14/2025 10:58 PM EDT Please inform patient I can send a 90-day prescription. Pls call to get name of pharmacy patient wants this to be sent to. Pleasealsoconfirm is not send away pharmacy patient is requesting. * Harry Queen - 06/12/2025 11:02 AM EDT Patient called to let provider know the alternative that the insurance covers is [facility] ELLIPTA. Patient will like to know if the rx could be send for a 90 day supply since she could save $45. Please advice. documented in this encounter Plan of Treatment Upcoming Encounters Date Type Department Care Team (Late st Contact Info) Description 07/27/2025 11:45 AM EST Office Visit Pulmonology - [address] [place] [phone] Jeanine Reinoso MD [facility] [place] [address] 11/25/2025 11:00 AM EDT Office Visit Adult Medicine [facility] [address] [place], [place] [phone] Trista Gan MD [address] [place], [place] documented as of this encounter Visit Diagnoses Not on filedocumented in this encounter Additional Health Concerns Assessment Noted Time PHQ-9 Depression Total Score: 2 05/28/20 25 5:56 PM EDT documented as of this encounter Care Teams Electrotyper Helper Relationship Specialty Start Date End Date Trista Gan MD [address] [place] [address] PCP - General Internal Medicine 02/18/21 documented as of this encounter
--- OUTSIDE RECORDS SUMMARY | 2025-07-08 19:48 | XMS_ITS | Clinical Summary ---
Author Organization [facility] Address [address] [place] [address] Phone Care Team Providers Care Educational Specialist Name Role Phone Trista Gan MD Primary Care Provider [phone] Allergies Active Allergy Reactions Criticality Noted Date Comments Amoxicillin Swelling,Unknown 07/08/2020 Facial flushing Cortisone Rash 07/30/2024 Erythromycin Nausea And Vomiting 07/08/2020 Erythromycin-Sulfisoxazo le 07/30/2024 Levofloxacin Rash 07/08/2020 Sulfa (Sulfonamide Antibiotics) 06/06/2013 Facial swelling Sulfamethoxazole-Trimeth oprim Rash 07/30/2024 Medications traZODone (DESYREL) 150 mg tablet Take 1-2 tablets (150-300 mg total) by mouth at bedtime as needed for sleep. 4 Active buPROPion SR (WELLBUTRIN SR) 100 [...] a day. 180 each 1 5 Active albuterol HFA (PROAIR [...] before breakfast. 90 tablet 1 5 Active simvastatin (ZOCOR) 20 mg tablet TAKE 1 TABLET BY MOUTH EVERYDAY AT BEDTIME 90 tablet 1 5 Active fluticasone furoate (Arnuity Ellipta) 100 mcg/actuation blister with device inhaler Inhale 1 puff by mouth 1 (one) time each day. 3 each 3 5 06/15/20 26 Active Active Problems Problem Noted Date Diagnosed Date Prediabetes 05/28/2025 ADHD 11/24/2024 Other chest pain 09/18/2024 Assessment [...] 08/19/2024 Seasonal allergies 08/19/2024 Endometriosis 08/19/2024 Hyperlipidemia LDL goal <100 08/19/2024 Assessment & Plan (02/04/2025 1:43 PM [...] Back pain 08/23/2022 Asthma 05/15/2019 Bipolar disorder ([facility] V24, [facility] V28) 01/2019 Overview (08/19/2024): Sees Dr. Murphy Obstructive sleep apnea 03/09/2019 Overview (08/19/2024): [facility] Home Sleep Apnea Test: Date [...] recurrent major depressive disorder, without psychotic features ([facility] V24, [facility] V28) 04/04/2017 Microscopic hematuria 06/18/2013 Encounters Date Type Department Care Team Description 07/01/2025 Telephone Adult Medicine [address] [phone] Trista Gan MD 06/12/2025 Results Follow-Up Adult Medicine [address] [phone] Anna Rutledge PA 06/12/2025 Telephone Pulmonology - [address] [place] [address] Jeanine Reinoso MD 05/28/2025 10:30 AM EDT Office Visit Adult Medicine [address] [phone] Anna Rutledge PA Osteopenia, unspecified location (Primary Dx); Obstructive sleep apnea; Acquired hypothyroidism; Moderate persistent asthma without complication; Bipolar affective disorder, remission status unspecified ([facility] V24, [facility] V28); Attention deficit hyperactivity disorder (ADHD), unspecified ADHD type; Bilateral pulmonary embolism ([facility] V24, [facility] V28); Hyperlipidemia LDL goal <100 from Last 3 Months Immunizations Immunization Administration Dates Next Due Influenza Quadravalent, 0.5m [...] care for your loved ones. For example, child care team lead or elderly care for an older adult? [...] Sign Reading Time Taken Comments Blood Pressure 118/64 05/28/2025 10:48 AM EDT Pulse 85 05/28/2025 10:48 AM EDT Temperature 35.8 C (96.5 F) 05/28/2025 10:48 AM EDT Respiratory Rate 14 05/28/2025 10:48 AM EDT Oxygen Saturation 97% 03/24/2025 2:34 PM EDT Inhaled Oxygen Concentration - - Weight 74.8 kg (165 lb) 05/28/2025 10:48 AM EDT Height 166.4 cm (5' 5.5 ) 05/28/2025 10:48 AM ED T Body Mass Index 27.04 05/28/2025 10:48 AM EDT Plan of Treatment Upcoming Encounters Date Type Department Care Team (Late st Contact Info) Description 07/27/2025 11:45 AM EST Office Visit Pulmonology - [address] [place] [address] Jeanine Reinoso MD [address] [place] [phone] 11/25/2025 11:00 AM EDT Office Visit Adult Medicine [facility] [address] [place], [place] [phone] Trista Gan MD [address] [place] [address] Health Maintenance Due Date Last Done Comments RSV Immunization Adult Patients (1 - Risk 50-74 years 1-dose series) 01/19/2008 Breast Cancer Screening 10/11/2023 10/11/2021, 03/08 COVID-19 Vaccine ( season) 2025 07/12/2023, 07/03/2022, 02/20/2022, Additional history exists Influenza Vaccine (#1) 2025 , 08/21/2023, 08/21/2022, Additional history exists Osteoporosis Screening (Bone Density Screening) 05/24/2025 05/24/2023 Falls Risk Assessment 05/28/2026 05/28/2025, 024 Social Influencers of Health Screening 05/28/2026 05/28/2025 Colorectal Cancer Screening: Colonoscopy 06/02/2027 06/02/2022 Cholesterol Screening (Lipid Panel) 06/11/2030 06/11/2025, 11/24/2024, 09/27/2023 DTaP,Tdap,and Td Vaccines (4 - Td or Tdap) 02/02/2031 02/02/2021, 06/06/2013, 05/17/2011 Hepatitis C Screening Addressed 05/07/2014 Overri dden with the intention of not completing the topic Zoster Vaccines Completed 08/18/2020, 05/26/2020 Pneumococcal Vaccine: 50+ Years Completed 11/19/2023 Depression Screening Completed 05/28/2025 HIB Vaccines Aged Out No longer eligi [...] Procedure Name Priority Date/Time Associated Diagnosis Comments MICROALBUMIN CREATININE URINE RATIO Routine 06/11/2025 10:43 AM EDT Osteopenia, unspecified location Obstructive sleep apnea Acquired hypothyroidism Moderate persistent asthma without complication Bipolar affective disorder, remission status unspecified ([facility] V24, [facility] V28) Attention deficit hyperactivity disorder (ADHD), unspecified ADHD type Bilateral pulmonary embolism ([facility] V24, [facility] V28) Hyperlipidemia LDL goal <100 COMPREHENSIVE METABOLIC PANEL Routine 06/11/2025 10:38 AM EDT Osteopenia, unspecified location Obstructive sleep apnea Acquired hypothyroidism Moderate persistent asthma without complication Bipolar affective disorder, remission status unspecified ([facility] V24, [facility] V28) Attention deficit hyperactivity disorder (ADHD), unspecified ADHD type Bilateral pulmonary embolism ([facility] V24, CMS/HCC V28) Hyperlipidemia LDL goal <100 HEMOGLOBIN A1C Routine 06/11/2025 10:38 AM EDT Osteopenia, unspecified location Obstructive sleep apnea Acquired hypothyroidism Moderate persistent asthma without complication Bipolar affective disorder, remission status unspecified ([facility] V24, [facility] V28) Attention deficit hyperactivity disorder (ADHD), unspecified ADHD type Bilateral pulmonary embolism ([facility]/HCC V24, CMS/HCC V28) Hyperlipidemia LDL goal <100 LIPID PANEL WITH REFLEX TO DIRECT LDL Routine 06/11/2025 10:38 AM EDT Osteopenia, unspecified location Obstructive sleep apnea Acquired hypothyroidism Moderate persistent asthma without complication Bipolar affective disorder, remission status unspecified ([facility] V24, CMS/[facility] V28) Attention deficit hyperactivity disorder (ADHD), unspecified ADHD type Bilateral pulmonary embolism ([facility] V24, [facility] V28) Hyperlipidemia LDL goal <100 THYROID STIMULATING HORMONE Routine 06/11/2025 10:38 AM EDT Osteopenia, unspecified location Obstructive sleep apnea Acquired hypothyroidism Moderate persistent asthma without complication Bipolar affective disorder, remission status unspecified ([facility] V24, [facility] V28) Attention deficit hyperactivity disorder (ADHD), unspecified ADHD type Bilateral pulmonary embolism ([facility] V24, [facility] V28) Hyperlipidemia LDL goal <100 DXA BONE DENSITY STUDY 1+ SITS AXIAL SKEL Routine 05/24/2023 11:29 AM EDT Asymptomatic menopausal state HM COLONOSCOPY Routine 06/02/2022 from Last 3 Months or Most Recently Relevant to Health Maintenance Results * Microalbumin creatinine urine ratio (06/11/2025 10:43 AM EDT) Creatinine, Urine 125.0 mg/dL LAB CHEMISTRY METHOD 06/11/2025 1:38 PM EDT [facility] Microalb, Ur 18.8 0.0 - 29.0 mg/L LAB CHEMISTRY METHOD 06/11/2025 1:38 PM EDT [facility] Microalb/Creat Ratio 15 <30 mg/g creat LAB CHEMISTRY METHOD 06/11/2025 1:38 PM EDT [facility] Urine Urine specimen from urethra / Unknown Non-blood Collection / Unknown 06/11/2025 10:43 AM EDT 06/11/2025 10:43 AM EDT us Anna MEZA LAB URINE ORDERABLES Final Re sult [facility] [address] [place] [address], [place] [phone] * Lipid panel with reflex to direct LDL (06/11/2025 10:38 AM EDT) Cholesterol 188 0 - 200 mg/dL LAB CHEMISTRY METHOD 06/11/2025 12:35 PM EDT [facility] Triglycerides 128 0 - 150 mg/dL [facility] HDL 78 >=40 mg/dL LAB CHEMISTRY METHOD 06/11/2025 12:35 PM EDT [facility] LDL Calculated 84 0 - 100 mg/dL LAB CHEMISTRY METHOD [facility] Comment:Estimated LDL Calcul ated using equation: Total cholesterol - HDL cholesterol - (Triglycerides/5) VLDL Cholesterol Wan 25.6 mg/dL LAB CHEMISTRY METHOD 06/11/2025 12:[address] [facility] Non HDL Chol. (LDL+VLDL) 110 <145 mg/dL LAB CHEMISTRY METHOD 06/11/2025 12:[address] [facility] Chol/HDL Ratio 2.4 0.0 - 4.4 LAB CHEMISTRY METHOD 06/11/2025 12:[address] [facility] Blood Venous blood specimen / Unknown Venipuncture / Unknown 06/11/2025 10:38 AM EDT 06/11/2025 10:38 AM EDT us Anna MEZA LAB BLOOD ORDERABLES Final Re sult [facility] [address] [place] [address], * Thyroid stimulating hormone (06/11/2025 10:38 AM EDT) TSH 1.85 0.40 - 4.00 mcIU/mL LAB CHEMISTRY METHOD 06/11/2025 1:05 PM EDT [facility] Blood Venous blood specimen / Unknown Venipuncture / Unknown 06/11/2025 10:38 AM EDT 06/11/2025 10:38 AM EDT us Anna MEZA LAB BLOOD ORDERABLES Final Re sult Performing Organization Address [facility]/ZIP Co de Phone Number [facility] [address] [place] [address], [place] [phone] * Hemoglobin A1c (06/11/2025 10:38 AM EDT) [facility] Hemoglobin A1C 5.8 <6.5 % LAB CHEMISTRY METHOD 06/11/2025 2:08 PM EDT [facility] Mean Bld Glu Estim. 120 mg/dL LAB CHEMISTRY METHOD 06/11/2025 2:08 PM EDT [facility] Blood Venous blood specimen / Unknown Venipuncture / Unknown 06/11/2025 10:38 AM EDT 06/11/2025 10:38 AM EDT us Anna MEZA LAB BLOOD ORDERABLES Final Re sult Performing Organization Address [facility]/ZIP Co de Phone Number [facility] [address] [place] [address], [place] [phone] * Comprehensive metabolic panel (06/11/2025 10:38 AM EDT) [facility] Sodium 139 133 - 145 mmol/L LAB CHEMISTRY METHOD 06/11/2025 12:35 PM EDT [facility] Potassium 4.4 3.5 - 5.5 mmol/L LAB CHEMISTRY METHOD 06/11/2025 12:35 PM EDT [facility] Chloride 105 96 - 110 mmol/L LAB CHEMISTRY METHOD 06/11/2025 12:35 PM EDT [facility] CO2 30 21 - 32 mmol/L LAB CHEMISTRY METHOD 06/11/2025 12:35 PM EDT [facility] Anion Gap 4 3 - 11 LAB CHEMISTRY METHOD 06/11/2025 12:[address] [facility] Glucose 86 70 - 100 mg/dL LAB CHEMISTRY METHOD 06/11/2025 12:[address] [facility] BUN 12 5 - 25 mg/dL LAB CHEMISTRY METHOD 06/11/2025 12:[address] [facility] Creatinine 0.69 0.50 - 1.10 mg/dL LAB CHEMISTRY METHOD 06/11/2025 12:[address] [facility] eGFR 95 >=60 mL/min/1. 73m2 LAB CHEMISTRY METHOD 06/11/2025 12:[address] [facility] Comment:Calculation based on the Chronic Kidney Disease Epidemiology Collaboration (CKD-EPI) equation refit without adjustment for race. BUN/Creatinine Ratio 17.4 LAB CHEMISTRY METHOD 06/11/2025 12:[address] [facility] Calcium 9.4 8.5 - 10.5 mg/dL LAB CHEMISTRY METHOD 06/11/2025 12:[address] [facility] AST (SGOT) 18 10 - 42 unit/L LAB CHEMISTRY METHOD 06/11/2025 12:[address] [facility] ALT (SGPT) 23 10 - 60 unit/L LAB CHEMISTRY METHOD 06/11/2025 12:[address] [facility] Alkaline Phosphatase 115 42 - 121 unit/L LAB CHEMISTRY METHOD 06/11/2025 12:[address] [facility] Total Protein 6.6 6.0 - 8.0 g/dL LAB CHEMISTRY METHOD 06/11/2025 12:[address] [facility] Albumin 3.9 3.2 - 5.0 g/dL LAB CHEMISTRY METHOD 06/11/2025 12:[address] [facility] Total Bilirubin 0.4 0.0 - 1.4 mg/dL LAB CHEMISTRY METHOD 06/11/2025 12:35 PM [facility] Blood Venous blood specimen / Unknown Venipuncture / Unknown 06/11/2025 10:38 AM EDT 06/11/2025 10:38 AM EDT us Anna MEZA LAB BLOOD ORDERABLES Final Re sult [facility] [address] [place] [address], * DXA BONE DENSITY STUDY 1+ SITS [...] National Osteoporosis Foundation http://www.nof.org Trista Gan MD [facility] DXA PROCEDURES Final Result * [facility] (06/02/2022) Colonoscopy abstract [facility] / Anatomical Region Laterality Modality Other Historical Provider HEALTH MAINTENANCE Final Result from Last 3 Months or Most Recently Relevant to Health Maintenance Insurance [facility] Advance Directives * Full Code - [...] Benoit Spouse Health Care Agent Care Teams Educational Specialist Relationship Specialty Start Date End Date Trista Gan MD [address] [place] [phone] PCP - General Internal Medicine 02/18/21
--- OUTSIDE RECORDS SUMMARY | 2025-07-08 19:48 | XMS_ITS | Clinical Summary ---
Author Organization [facility] Address [address] [place] [address] [place] [address] Phone Care Team Providers Care Boot Repairer Name Role Phone Marybel Enriquez DO Primary [...] file Medical Devices Not on file [place] [address] [place] [address] [place] [address] [place] [address] [place] [place] [address] [place] [address] [place] [address] [place] [address] [place] [address] [place] [address] [place] [address] [place] [address] [place] [address] [place] [address] HMO POS [facility] HMO POS [facility] HMO POS Care Teams Boot Repairer Relationship Specialty Start Date End Date Marybel Enriquez DO [address] [place] [address] PCP - General Internal Medicine 07/08/20 Additional Source Comments The information contained in this document represents components of the legal health record. It is not the complete legal health record.[facility]
--- OUTSIDE RECORDS SUMMARY | 2025-07-08 19:48 | XMS_ITS | Encounter Summary ---
Author Organization [facility] Address [address] [place] [address] Care Team Providers Care Pick Pulling Machine Tender Name Role Phone Marybel Dunlap DO Primary Care Pro vider Unavailable Trista Gan MD Primary Care Provider [phone] Encounter Details Date Type Department Care Team Description 06/18/2013 Orders Only Adult Medicine [address] [address] Marybel Dunlap DO Microscopic hematuria; Dyslipidemia Social History Tobacco Use Types Packs/Day Years [...] documented as of this encounter Results * (ABNORMAL) URINALYSIS, COMPLETE (07/22/2013 2:42 PM EST) SPECIFIC GRAVITY, URINE <= 1.005 1.005 - 1.030 07/22/2013 2:58 PM EST [facility] PH, URINE 7.0 5 - 8 07/22/2013 2:58 PM EST [facility] PROTEIN, URINE NEGATIVE <=TRACE mg/dL 07/22/2013 2:58 PM EST [facility] GLUCOSE, URINE (UA) NEGATIVE NEGATIVE mg/dL 07/22/2013 2:58 PM EST [facility] KETONE, URINE NEGATIVE NEGATIVE mg/dL 07/22/2013 2:58 PM EST [facility] BILIRUBIN URINE NEGATIVE NEGATIVE 07/22/2013 2:58 PM EST [facility] UROBILINOGEN, URINE 0.2 0.2 - 1.0 E.U./dL 07/22/2013 2:58 PM EST [facility] BLOOD, URINE TRACE(A) NEGATIVE 07/22/2013 3:04 PM EST [facility] NITRITE,URINE NEGATIVE NEGATIVE 07/22/2013 2:58 PM EST [facility] LEUKOCYTE ESTERASE, URINE NEGATIVE NEGATIVE 07/22/2013 2:58 PM [facility] RBC-Urine 0-1 0 - 4 /hpf 07/22/2013 4:16 PM [facility] WBC, URINE RARE 0 - 4 /hpf 07/22/2013 4:16 PM EST [facility]. PHOSPHATE 07/22/2013 4:16 PM [facility] 07/22/2013 2:42 PM EST 07/22/2013 2:42 PM EST Marybel Saravia DO LAB Performing Organization Address City/State/[facility] Co de Phone Number [facility] [address] [facility] documented in this encounter Visit Diagnoses Diagnosis Microscopic hematuria Dyslipidemia Other and unspecified hyperlipidemia Microscopic hematuria documented in this encounter Care Teams Pick Pulling Machine Tender Relationship Specialty Start Date End Date Marybel Dunlap DO PCP - General Internal Medicine 05/19/13 02/17/21 Trista Gan MD [address] [place] [address] PCP - General Internal Medicine 02/18/21 documented as of this encounter
--- OUTSIDE RECORDS SUMMARY | 2025-07-08 19:48 | XMS_ITS | Patient Health Record ---
Author Organization 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
== END 2025-07-08 15:26 | disposition home or self-care (01) ==
LOC: HO.HMGAL 15:26
PROVIDERS: PCP Internal Medicine; Visit Provider Registered Nurse Emergency
DX: J30.89 Other allergic rhinitis (principal)
CPT/HCPCS: 95117; 95165

== ENCOUNTER 2025-07-15 15:59 | Outpatient (AMB) | payer BC, SELFPAY ==
--- OUTSIDE RECORDS SUMMARY | 2025-07-15 18:47 | XMS_ITS | Encounter Summary ---
Author Organization [facility] Address [address] [place] [address] Care Team Providers Care Welding Machine Operator Helper Arc Name Role Phone Trista Gan MD Primary Care Provider [phone] Reason for Visit * Reason Onset Date Comments Error 07/01/2025 Encounter Details Date Type Department Care Team (Late st Contact Info) Description 07/01/2025 Telephone Adult Medicine [facility] [address] [place], [place] [phone] Trista Gan MD [address] [place], [place] Social History Tobacco Use Types Packs/Day [...] your loved ones. For example, early childhood or elderly care for an older adult? [...] 11:45 AM EST Office Visit Pulmonology - [place] [address] [facility] [address] [place] [address] Jeanine Reinoso MD [address] [place] [phone] 11/25/2025 11:00 AM EDT Office Visit Adult Medicine [facility] [address] [place] [address] Trista Gan MD [address] [place] [address] documented as of this encounter Visit Diagnoses Not on filedocumented in this encounter Additional Health Concerns Assessment Noted Time PHQ-9 Depression Total Score: 2 05/28/20 25 5:56 PM EDT documented as of this encounter Care Teams Welding Machine Operator Helper Arc Relationship Specialty Start Date End Date Trista Gan MD [address] [place] [address] PCP - General Internal Medicine 02/18/21 documented as of this encounter
--- OUTSIDE RECORDS SUMMARY | 2025-07-15 18:47 | XMS_ITS | Clinical Summary ---
Author Organization [facility] Address [address] [place] [address] Phone Care Team Providers Care Computer Salesperson Retail Name Role Phone Trista Gan MD Primary Care Provider [phone] Allergies Active Allergy Reactions Criticality Noted Date [...] Back pain 08/23/2022 Asthma 05/15/2019 Bipolar disorder ([facility] V24, [facility] V28) 01/2019 Overview (08/19/2024): Sees Dr. Murphy Obstructive sleep apnea 03/09/2019 Overview (08/19/2024): [facility] Home Sleep Apnea Test: Date 03/06/2019; [...] recurrent major depressive disorder, without psychotic features ([facility] V24, [facility] V28) 04/04/2017 Microscopic hematuria 06/18/2013 Encounters Date Type Department Care Team Description 07/01/2025 Telephone Adult Medicine [address] [phone] Trista Gan MD 06/12/2025 Results Follow-Up Adult Medicine [address] [phone] Anna Rutledge PA 06/12/2025 Telephone Pulmonology - [address] [place] [address] Jeanine Reinoso MD 05/28/2025 10:30 AM EDT Office Visit Adult Medicine [address] [phone] Anna Rutledge PA Osteopenia, unspecified location (Primary Dx); Obstructive sleep apnea; Acquired hypothyroidism; Moderate persistent asthma without complication; Bipolar affective disorder, remission status unspecified ([facility] V24, [facility] V28); Attention deficit hyperactivity disorder (ADHD), unspecified ADHD type; Bilateral pulmonary embolism ([facility] V24, [facility] V28); Hyperlipidemia LDL goal <100 from Last [...] 11:45 AM EST Office Visit Pulmonology - [address] [place] [address] Jeanine Reinoso MD [address] [place] [phone] 11/25/2025 11:00 AM EDT Office Visit Adult Medicine [facility] [address] [place], [place] [phone] Trista Gan MD [address] [place] [address] Health Maintenance Due Date Last Done Comments [...] complication Bipolar affective disorder, remission status unspecified ([facility] V24, [facility] V28) Attention deficit hyperactivity disorder (ADHD), unspecified ADHD type Bilateral pulmonary embolism ([facility] V24, [facility] V28) Hyperlipidemia LDL goal <100 COMPREHENSIVE METABOLIC PANEL Routine 06/11/2025 10:38 AM EDT Osteopenia, unspecified location Obstructive sleep apnea Acquired hypothyroidism Moderate persistent asthma without complication Bipolar affective disorder, remission status unspecified ([facility] V24, [facility] V28) Attention deficit hyperactivity disorder (ADHD), unspecified ADHD type Bilateral pulmonary embolism ([facility] V24, [facility]/HCC V28) Hyperlipidemia LDL goal <100 HEMOGLOBIN A1C Routine 06/11/2025 10:38 AM EDT Osteopenia, unspecified location Obstructive sleep apnea Acquired hypothyroidism Moderate persistent asthma without complication Bipolar affective disorder, remission status unspecified ([facility] V24, [facility] V28) Attention deficit hyperactivity disorder (ADHD), unspecified ADHD type Bilateral pulmonary embolism ([facility]/HCC V24, CMS/HCC V28) Hyperlipidemia LDL goal <100 LIPID PANEL WITH REFLEX TO DIRECT LDL Routine 06/11/2025 10:38 AM EDT Osteopenia, unspecified location Obstructive sleep apnea Acquired hypothyroidism Moderate persistent asthma without complication Bipolar affective disorder, remission status unspecified ([facility] V24, [facility] V28) Attention deficit hyperactivity disorder (ADHD), unspecified ADHD type Bilateral pulmonary embolism ([facility] V24, [facility] V28) Hyperlipidemia LDL goal <100 THYROID STIMULATING HORMONE Routine 06/11/2025 10:38 AM EDT Osteopenia, unspecified location Obstructive sleep apnea Acquired hypothyroidism Moderate persistent asthma without complication Bipolar affective disorder, remission status unspecified ([facility] V24, [facility] V28) Attention deficit hyperactivity disorder (ADHD), unspecified ADHD type Bilateral pulmonary embolism ([facility] V24, [facility] V28) Hyperlipidemia LDL goal <100 DXA BONE DENSITY STUDY 1+ SITS AXIAL SKEL Routine 05/24/2023 11:29 AM EDT Asymptomatic menopausal state HM COLONOSCOPY Routine 06/02/2022 from Last 3 Months or Most Recently Relevant to Health Maintenance Results * Microalbumin creatinine urine ratio (06/11/2025 10:43 AM EDT) Creatinine, Urine 125.0 mg/dL LAB CHEMISTRY METHOD 06/11/2025 1:38 PM EDT [facility] Microalb, Ur 18.8 0.0 - 29.0 mg/L LAB CHEMISTRY METHOD 06/11/2025 1:38 PM EDT [facility] Microalb/Creat Ratio 15 <30 mg/g creat LAB CHEMISTRY METHOD 06/11/2025 1:38 PM EDT [facility] Urine Urine specimen from urethra / Unknown Non-blood Collection / Unknown 06/11/2025 10:43 AM EDT 06/11/2025 10:43 AM EDT us Anna MEZA LAB URINE ORDERABLES Final Re sult [facility] [address] [place] [address], [place] [phone] * Lipid panel with reflex to direct LDL (06/11/2025 10:38 AM EDT) Cholesterol 188 0 - 200 mg/dL LAB CHEMISTRY METHOD 06/11/2025 12:35 PM EDT [facility] Triglycerides 128 0 - 150 mg/dL LAB CHE[facility]STRY METHOD [facility]25 [facility] HDL 78 >=40 mg/dL LAB CHEMISTRY METHOD 06/11/2025 12:35 PM EDT [facility] LDL Calculated 84 0 - 100 mg/dL LAB CHEMISTRY METHOD 06/11[facility]2025 12:[facility] Comment:Estimated LDL Calcul ated using equation: Total cholesterol - HDL cholesterol - (Triglycerides/5) VLDL Cholesterol Wan 25.6 mg/dL LAB CHEMISTRY METHOD 06/11/2025 12:35 PM [facility] Non HDL Chol. (LDL+VLDL) 110 <145 mg/dL LAB CHEMISTRY METHOD 06/11/2025 12:35 PM [facility] Chol/HDL Ratio 2.4 0.0 - 4.4 LAB CHEMISTRY METHOD 06/11/2025 12:35 PM [facility] Blood Venous blood specimen / Unknown Venipuncture / Unknown 06/11/2025 10:38 AM EDT 06/11/2025 10:38 AM EDT us Anna MEZA LAB BLOOD ORDERABLES Final Re sult [facility] [address] [place] [address], * Thyroid stimulating hormone (06/11/2025 10:38 AM EDT) TSH 1.85 0.40 - 4.00 mcIU/mL LAB CHEMISTRY METHOD 06/11/2025 1:05 PM EDT [facility] Blood Venous blood specimen / Unknown Venipuncture / Unknown 06/11/2025 10:38 AM EDT 06/11/2025 10:38 AM EDT us Anna MEZA LAB BLOOD ORDERABLES Final Re sult Performing Organization Address [facility]/ZIP Co de Phone Number [facility] [address] [place] [address], [place] [phone] * Hemoglobin A1c (06/11/2025 10:38 AM EDT) [facility] [address] Hemoglobin A1C 5.8 <6.5 % LAB CHEMISTRY METHOD 06/11/2025 2:08 PM EDT [facility] Mean Bld Glu Estim. 120 mg/dL LAB CHEMISTRY METHOD 06/11/2025 2:08 PM EDT [facility] Blood Venous blood specimen / Unknown Venipuncture / Unknown 06/11/2025 10:38 AM EDT 06/11/2025 10:38 AM EDT us Anna MEZA LAB BLOOD ORDERABLES Final Re sult Performing Organization Address [facility]/ZIP Co de Phone Number [facility] [address] [place] [address], [place] [phone] * Comprehensive metabolic panel (06/11/2025 10:38 AM EDT) [facility] [address] Sodium 139 133 - 145 mmol/L LAB CHEMISTRY METHOD 06/11/2025 12:35 PM EDT [facility] Potassium 4.4 3.5 - 5.5 mmol/L LAB CHEMISTRY METHOD 06/11/2025 12:35 PM EDT [facility] Chloride 105 96 - 110 mmol/L LAB CHEMISTRY METHOD 06/11/2025 12:35 PM EDT [facility] CO2 30 21 - 32 mmol/L LAB CHEMISTRY METHOD 06/11/2025 12:35 PM EDT [facility] Anion Gap 4 3 - 11 LAB CHEMISTRY METHOD 06/11/2025 12:35 PM [facility] Glucose 86 70 - 100 mg/dL LAB CHEMISTRY METHOD 06/11/2025 12:35 PM [facility] BUN 12 5 - 25 mg/dL LAB CHEMISTRY METHOD 06/11/2025 12:35 PM [facility] Creatinine 0.69 0.50 - 1.10 mg/dL LAB CHEMISTRY METHOD 06/11/2025 12:35 PM [facility] eGFR 95 >=60 mL/min/1. 73m2 LAB CHEMISTRY METHOD 06/11/2025 12:35 PM [facility] Comment:Calculation based on the Chronic Kidney Disease Epidemiology Collaboration (CKD-EPI) equation refit without adjustment for race. BUN/Creatinine Ratio 17.4 LAB CHEMISTRY METHOD 06/11/2025 12:35 PM [facility] Calcium 9.4 8.5 - 10.5 mg/dL LAB CHEMISTRY METHOD 06/11/2025 12:35 PM [facility] AST (SGOT) 18 10 - 42 unit/L LAB CHEMISTRY METHOD 06/11/2025 12:35 PM [facility] ALT (SGPT) 23 10 - 60 unit/L LAB CHEMISTRY METHOD 06/11/2025 12:35 PM [facility] Alkaline Phosphatase 115 42 - 121 unit/L LAB CHEMISTRY METHOD 06/11/2025 12:35 PM [facility] Total Protein 6.6 6.0 - 8.0 g/dL LAB CHEMISTRY METHOD 06/11/2025 12:35 PM [facility] Albumin 3.9 3.2 - 5.0 g/dL LAB CHEMISTRY METHOD 06/11/2025 12:35 PM [facility] Total Bilirubin 0.4 0.0 - 1.4 mg/dL LAB CHEMISTRY METHOD 06/11/2025 12:35 PM [facility] Blood Venous blood specimen / Unknown Venipuncture / Unknown 06/11/2025 10:38 AM EDT 06/11/2025 10:38 AM EDT us Anna MEZA LAB BLOOD ORDERABLES Final Re sult [facility] [address] [place] [address], * DXA BONE DENSITY STUDY 1+ SITS [...] National Osteoporosis Foundation http://www.nof.org Trista Gan MD [facility] DXA PROCEDURES Final Result * [facility] (06/02/2022) Colonoscopy abstract [facility] / Anatomical Region Laterality Modality Other Historical Provider HEALTH MAINTENANCE Final Result from Last 3 Months or Most Recently Relevant to Health Maintenance Insurance [facility] Advance Directives * Full Code - [...] Benoit Spouse Health Care Agent Care Teams Computer Salesperson Retail Relationship Specialty Start Date End Date Trista Gan MD [address] [place] [phone] PCP - General Internal Medicine 02/18/21
--- OUTSIDE RECORDS SUMMARY | 2025-07-15 18:47 | XMS_ITS | Patient Health Record ---
[facility] Address [address] [place] [address] Care Team Providers Care School Administrator Name Role Phone Trista Gan Primary Care Provider Smooth Young Unavailable [phone] Allergies Allergen (clinical drug ingredient) Drug/Non Drug [...] Status Risk Notes Problem Acquired hallux valgus (08473147) Hallux valgus (acquired), left foot (M20.12) Active confirmed Problem Chronic ulcer of foot (078478195) Non-pressure chronic ulcer of other part of left foot with fat layer exposed (L97.522) Active confirmed Problem Acquired hallux valgus (85570528) Hallux valgus (acquired), right foot (M20.11) Active [...] X ray : Foot, right 2V 03/24/2013 [id number] SKIN/TISSUE 08/14/2022 Insurance Providers Payer Name Payer Address Payer Phone Subscriber Number Group Number Insured Name Patient Relationship to Insured Coverage Start Date Coverage End Date [facility] [address] [place] [address] [phone] [id number] Jack Benoit Spouse - patient is [...]
--- OUTSIDE RECORDS SUMMARY | 2025-07-15 18:47 | XMS_ITS | Encounter Summary ---
Author Organization [facility] Address [address] [place] [address] Care Team Providers Care Certified Scrub Tech Name Role Phone Trista Gan MD Primary Care Provider [phone] Encounter Details Date Type Department Care Team (Late st Contact Info) Description 06/12/2025 Results Follow-Up Adult Medicine [address] [phone] Anna Rutledge PA [address] [place], [place] Social History Tobacco Use Types Packs/Day [...] for your loved ones. For example, child abuse worker or elderly care for an older adult? [...] 11:45 AM EST Office Visit Pulmonology - [place] 175 [facility] [address] [place] [phone] Jeanine Reinoso MD [address] [place] [address] 11/25/2025 11:00 AM EDT Office Visit Adult Medicine [facility] [address] [place], [place] [phone] Trista Gan MD [address] [place], [place] documented as of this encounter Visit Diagnoses Not on filedocumented in this encounter Additional Health Concerns Assessment Noted Time PHQ-9 Depression Total Score: 2 05/28/20 25 5:56 PM EDT documented as of this encounter Care Teams Certified Scrub Tech Relationship Specialty Start Date End Date Trista Gan MD [address] [place] [address] PCP - General Internal Medicine 02/18/21 documented as of this encounter
--- OUTSIDE RECORDS SUMMARY | 2025-07-15 18:47 | XMS_ITS | Encounter Summary ---
Author Organization [facility] Address [address] [place] [address] Care Team Providers Care Mystery Shopper Name Role Phone Trista Gan MD Primary Care Provider [phone] Reason for Visit * Reason Onset Date Comments Medication Problem 06/12/2025 Encounter Details Date Type Department Care Team ([facility] st Contact Info) Description 06/12/2025 Telephone Pulmonology - [address] [place] [address] Jeanine Reinoso MD [address] [place] [phone] Social History Tobacco Use Types Packs/Day [...] loved ones. For example, early childhood education instructor or elderly care for an older adult? [...] AM EDT wants her prescription sent to [facility] with a 3 month supply * [...] 11:45 AM EST Office Visit Pulmonology - [address] [place] [phone] Jeanine Reinoso MD [facility] [place] [address] 11/25/2025 11:00 AM EDT Office Visit Adult Medicine [facility] [address] [place], [place] [phone] Trista Gan MD [address] [place], [place] documented as of this encounter Visit Diagnoses Not on filedocumented in this encounter Additional Health Concerns Assessment Noted Time PHQ-9 Depression Total Score: 2 05/28/20 25 5:56 PM EDT documented as of this encounter Care Teams Mystery Shopper Relationship Specialty Start Date End Date Trista Gan MD [address] [place] [address] PCP - General Internal Medicine 02/18/21 documented as of this encounter
--- OUTSIDE RECORDS SUMMARY | 2025-07-15 18:47 | XMS_ITS | Clinical Summary ---
Author Organization [facility] Address [address] [place] [address] [place] [address] Phone Care Team Providers Care Machine Ii Trimmer Name Role Phone Marybel Enriquez DO Primary [...] file Medical Devices Not on file [place] [address] [place] [address] [place] [address] [place] [address] [place] [address] [place] [address] [place] [address] [place] [address] [place] [address] [place] [address] [place] [address] HMO POS [facility] HMO POS [facility] HMO POS Care Teams Machine Ii Trimmer Relationship Specialty Start Date End Date Marybel Enriquez DO [address] [place] [address] PCP - General Internal Medicine 07/08/20 Additional Source Comments The information contained in this document represents components of the legal health record. It is not the complete legal health record.[facility]
== END 2025-07-15 16:00 | disposition home or self-care (01) ==
LOC: HO.HMGAL 15:59
PROVIDERS: PCP Internal Medicine; Visit Provider Registered Nurse Emergency
DX: J30.89 Other allergic rhinitis (principal)
CPT/HCPCS: 95117; 95165

== ENCOUNTER 2025-07-22 16:21 | Outpatient (AMB) | payer BC, SELFPAY ==
--- OUTSIDE RECORDS SUMMARY | 2025-07-22 19:01 | XMS_ITS | Clinical Summary ---
Author Organization [facility] Address [address] [place] [address] [place] [phone] Phone Care Team Providers Care Boilers Inspector Name Role Phone Marybel Enriquez DO Primary [...] file Medical Devices Not on file [place] [address] [place] [address] [place] [address] [place] [address] [place] [address] [place] [address] [place] [address] [place] [address] [place] [address] [place] [address] H[place] POS [facility] HMO POS [facility] HMO POS Care Teams Boilers Inspector Relationship Specialty Start Date End Date Marybel Enriquez DO [address] [place] [address] PCP - General Internal Medicine 07/08/20 Additional Source Comments The information contained in this document represents components of the legal health record. It is not the complete legal health record.[facility]
--- OUTSIDE RECORDS SUMMARY | 2025-07-22 19:01 | XMS_ITS | Encounter Summary ---
Author Organization [facility] Address [address] [place] [address] Care Team Providers Care Radio Repairer Name Role Phone Trista Gan MD Primary Care Provider [phone] Encounter Details Date Type Department Care Team (Late st Contact Info) Description 06/12/2025 Results Follow-Up Adult Medicine [address] [phone] Anna Rutledge PA [address] [place], [place] Social History Tobacco Use Types Packs/Day [...] for your loved ones. For example, child monitor or elderly care for an older adult? [...] 11:45 AM EST Office Visit Pulmonology - [place] 175 [facility] [address] [place] [phone] Jeanine Reinoso MD [address] [place] [address] 11/25/2025 11:00 AM EDT Office Visit Adult Medicine [facility] [address] [place], [place] [phone] Trista Gan MD [address] [place], [place] documented as of this encounter Visit Diagnoses Not on filedocumented in this encounter Additional Health Concerns Assessment Noted Time PHQ-9 Depression Total Score: 2 05/28/20 25 5:56 PM EDT documented as of this encounter Care Teams Radio Repairer Relationship Specialty Start Date End Date Trista Gan MD [address] [place] [address] PCP - General Internal Medicine 02/18/21 documented as of this encounter
--- OUTSIDE RECORDS SUMMARY | 2025-07-22 19:01 | XMS_ITS | Patient Health Record ---
Author Organization [facility] Address [address] [facility] [place] [address] Care Team Providers Care Installation And Repair Technician Name Role Phone Trista Gan Primary Care Provider Smooth Young Unavailable [phone] Allergies Allergen (clinical drug ingredient) Drug/Non Drug [...] Status Risk Notes Problem Acquired hallux valgus (88715712) Hallux valgus (acquired), left foot (M20.12) Active confirmed Problem Chronic ulcer of foot (117817712) Non-pressure chronic ulcer of other part of left foot with fat layer exposed (L97.522) Active confirmed Problem Acquired hallux valgus (52674296) Hallux valgus (acquired), right foot (M20.11) Active [...] X ray : Foot, right 2V 03/24/2013 [id number] SKIN/TISSUE 08/14/2022 Insurance Providers Payer Name Payer Address Payer Phone Subscriber Number Group Number Insured Name Patient Relationship to Insured Coverage Start Date Coverage End Date [facility] [address] [place] [address] [phone] [id number] Jack Benoit Spouse - patient is [...]
--- OUTSIDE RECORDS SUMMARY | 2025-07-22 19:01 | XMS_ITS | Encounter Summary ---
Author Organization [facility] Address [address] [place] [address] Care Team Providers Care Log Manager Name Role Phone Trista Gan MD Primary Care Provider [phone] Reason for Visit * Reason Onset Date Comments Error 07/01/2025 Encounter Details Date Type Department Care Team (Late st Contact Info) Description 07/01/2025 Telephone Adult Medicine [facility] [address] [place], [place] [phone] Trista Gan MD [address] [place], [place] Social History Tobacco Use Types Packs/Day [...] your loved ones. For example, child care teacher or elderly care for an older [...] 11:45 AM EST Office Visit Pulmonology - [place] 175 [facility] [address] [place] [address] Jeanine Reinoso MD [address] [place] [phone] 11/25/2025 11:00 AM EDT Office Visit Adult Medicine [facility] [address] [place] [address] Trista Gan MD [address] [place] [address] documented as of this encounter Visit Diagnoses Not on filedocumented in this encounter Additional Health Concerns Assessment Noted Time PHQ-9 Depression Total Score: 2 05/28/20 25 5:56 PM EDT documented as of this encounter Care Teams Log Manager Relationship Specialty Start Date End Date Trista Gan MD [address] [place] [address] PCP - General Internal Medicine 02/18/21 documented as of this encounter
--- OUTSIDE RECORDS SUMMARY | 2025-07-22 19:01 | XMS_ITS | Clinical Summary ---
Author Organization [facility] [employer] [facility] Address [address] [place] [address] Phone Care Team Providers Care Washing Machine Loader And Puller Name Role Phone Trista Gan MD Primary Care Provider [phone] Allergies Active Allergy Reactions Criticality Noted Date [...] Asthma 05/15/2019 Bipolar disorder [place] [place] [facility] [place] 01/2019 Overview (08/19/2024): Sees Dr. Murphy Obstructive sleep apnea 03/09/2019 Overview (08/19/2024): [facility] Home Sleep Apnea Test: Date 03/06/2019; [...] disorder, without psychotic features ([facility] [place], [facility] V28) 04/04/2017 Microscopic hematuria 06/18/2013 Encounters Date Type Department Care Team Description 07/01/2025 Telephone Adult Medicine [address] [phone] Trista Gan MD 06/12/2025 Results Follow-Up Adult Medicine [address] [phone] Anna Rutledge PA 06/12/2025 Telephone Pulmonology - [address] [place] [address] Jeanine Reinoso MD 05/28/2025 10:30 AM EDT Office Visit Adult Medicine [address] [phone] Anna Rutledge PA Osteopenia, unspecified location (Primary Dx); Obstructive sleep apnea; Acquired hypothyroidism; Moderate persistent asthma without complication; Bipolar affective disorder, remission status unspecified ([facility] V24, [facility] V28); Attention deficit hyperactivity disorder (ADHD), unspecified ADHD type; Bilateral pulmonary embolism ([facility] V24, [facility] V28); Hyperlipidemia LDL goal <100 from [...] your loved ones. For example, child care sitter or elderly care for an older adult? [...] 11:45 AM EST Office Visit Pulmonology - [address] [place] [address] Jeanine Reinoso MD [address] [place] [phone] 11/25/2025 11:00 AM EDT Office Visit Adult Medicine [facility] [address] [place], [place] [phone] Trista Gan MD [address] [place] [address] Health Maintenance Due Date Last Done Comments [...] complication Bipolar affective disorder, remission status unspecified ([facility] V24, [facility] V28) Attention deficit hyperactivity disorder (ADHD), unspecified ADHD type Bilateral pulmonary embolism ([facility] V24, [facility] V28) Hyperlipidemia LDL goal <100 COMPREHENSIVE METABOLIC PANEL Routine 06/11/2025 10:38 AM EDT Osteopenia, unspecified location Obstructive sleep apnea Acquired hypothyroidism Moderate persistent asthma without complication Bipolar affective disorder, remission status unspecified ([facility] V24, [facility] V28) Attention deficit hyperactivity disorder (ADHD), unspecified ADHD type Bilateral pulmonary embolism ([facility] V24, [facility] V28) Hyperlipidemia LDL goal <100 HEMOGLOBIN A1C Routine 06/11/2025 10:38 AM EDT Osteopenia, unspecified location Obstructive sleep apnea Acquired hypothyroidism Moderate persistent asthma without complication Bipolar affective disorder, remission status unspecified ([facility] V24, [facility] V28) Attention deficit hyperactivity disorder (ADHD), unspecified ADHD type Bilateral pulmonary embolism ([facility]/HCC V24, [facility] V28) Hyperlipidemia LDL goal <100 LIPID PANEL WITH REFLEX TO DIRECT LDL Routine 06/11/2025 10:38 AM EDT Osteopenia, unspecified location Obstructive sleep apnea Acquired hypothyroidism Moderate persistent asthma without complication Bipolar affective disorder, remission status unspecified ([facility] V24, [facility] V28) Attention deficit hyperactivity disorder (ADHD), unspecified ADHD type Bilateral pulmonary embolism ([facility] V24, [facility] V28) Hyperlipidemia LDL goal <100 THYROID STIMULATING HORMONE Routine 06/11/2025 10:38 AM EDT Osteopenia, unspecified location Obstructive sleep apnea Acquired hypothyroidism Moderate persistent asthma without complication Bipolar affective disorder, remission status unspecified ([facility] V24, [facility] V28) Attention deficit hyperactivity disorder (ADHD), unspecified ADHD type Bilateral pulmonary embolism ([facility] V24, [facility] V28) Hyperlipidemia LDL goal <100 DXA BONE DENSITY STUDY 1+ SITS AXIAL SKEL Routine 05/24/2023 11:29 AM EDT Asymptomatic menopausal state HM COLONOSCOPY Routine 06/02/2022 from Last 3 Months or Most Recently Relevant to Health Maintenance Results * Microalbumin creatinine urine ratio (06/11/2025 10:43 AM EDT) Creatinine, Urine 125.0 mg/dL LAB CHEMISTRY METHOD 06/11/2025 1:38 PM EDT [facility] Microalb, Ur 18.8 0.0 - 29.0 mg/L LAB CHEMISTRY METHOD 06/11/2025 1:38 PM EDT [facility] Microalb/Creat Ratio 15 <30 mg/g creat LAB CHEMISTRY METHOD 06/11/2025 1:38 PM EDT [facility] Urine Urine specimen from urethra / Unknown Non-blood Collection / Unknown 06/11/2025 10:43 AM EDT 06/11/2025 10:43 AM EDT us Anna MEZA LAB URINE ORDERABLES Final Re sult [facility] [address] [place] [address], [place] [phone] * Lipid panel with reflex to direct LDL (06/11/2025 10:38 AM EDT) Cholesterol 188 0 - 200 mg/dL LAB CHEMISTRY METHOD 06/11/2025 12:35 PM EDT [facility] Triglycerides 128 0 - 150 mg/dL LAB CHE[facility]STRY [facility]/11[facility]25 [facility] HDL 78 >=40 mg/dL LAB CHEMISTRY METHOD 06/11/2025 12:35 PM EDT [facility] LDL Calculated 84 0 - 100 mg/dL LAB CHEMISTRY METHOD 06/11/2025 12:[facility] Comment:Estimated LDL Calcul ated using [...] MEZA LAB BLOOD ORDERABLES Final Re sult [facility] [address] [place] [address], * Thyroid stimulating hormone (06/11/2025 10:38 AM EDT) TSH 1.85 0.40 - 4.00 mcIU/mL LAB CHEMISTRY METHOD 06/11/2025 1:05 PM EDT [facility] Blood Venous blood specimen / Unknown Venipuncture / Unknown 06/11/2025 10:38 AM EDT 06/11/2025 10:38 AM EDT us Anna MEZA LAB BLOOD ORDERABLES Final Re sult Performing Organization Address [facility]/ZIP Co de Phone Number [facility] [address] [place] [address], [place] [phone] * Hemoglobin A1c (06/11/2025 10:38 AM EDT) [facility] Hemoglobin A1C 5.8 <6.5 % LAB CHEMISTRY METHOD 06/11/2025 2:08 PM EDT [facility] Mean Bld Glu Estim. 120 mg/dL LAB CHEMISTRY METHOD 06/11/2025 2:08 PM EDT [facility] Blood Venous blood specimen / Unknown Venipuncture / Unknown 06/11/2025 10:38 AM EDT 06/11/2025 10:38 AM EDT us Anna MEZA LAB BLOOD ORDERABLES Final Re sult Performing Organization Address [facility]/ZIP Co de Phone Number [facility] [address] [place] [address], [place] [phone] * Comprehensive metabolic panel (06/11/2025 10:38 AM EDT) [facility] Sodium 139 133 - 145 mmol/L LAB CHEMISTRY METHOD 06/11/2025 12:35 PM EDT [facility] Potassium 4.4 3.5 - 5.5 mmol/L LAB CHEMISTRY METHOD 06/11/2025 12:35 PM EDT [facility] Chloride 105 96 - 110 mmol/L LAB CHEMISTRY METHOD 06/11/2025 12:35 PM EDT [facility] CO2 30 21 - 32 mmol/L LAB CHEMISTRY METHOD 06/11/2025 12:35 PM EDT [facility] Anion Gap 4 3 - [...] mg/dL LAB CHEMISTRY METHOD 06/11/2025 12:35 PM [facility] Blood Venous blood specimen / Unknown Venipuncture / Unknown 06/11/2025 10:38 AM EDT 06/11/2025 10:38 AM EDT us Anna MEZA LAB BLOOD ORDERABLES Final Re sult [facility] [address] [place] [address], * DXA BONE DENSITY STUDY 1+ SITS [...] National Osteoporosis Foundation http://www.nof.org Trista Gan MD [facility] DXA PROCEDURES Final Result * [facility] (06/02/2022) Colonoscopy abstract [facility] / Anatomical Region Laterality Modality Other Historical Provider HEALTH MAINTENANCE Final Result from Last 3 Months or Most Recently Relevant to Health Maintenance Insurance [facility] Advance Directives * Full Code - [...] Benoit Spouse Health Care Agent Care Teams Washing Machine Loader And Puller Relationship Specialty Start Date End Date Trista Gan MD [address] [place] [phone] PCP - General Internal Medicine 02/18/21
== END 2025-07-22 16:21 | disposition home or self-care (01) ==
LOC: HO.HMGAL 16:21
PROVIDERS: PCP Internal Medicine; Visit Provider Registered Nurse Emergency
DX: J30.89 Other allergic rhinitis (principal)
CPT/HCPCS: 95117; 95165

== ENCOUNTER 2025-07-27 14:08 | Outpatient (AMB) | payer BC, SELFPAY | END 2025-07-27 14:09 | disposition home or self-care (01) | LOC: HO.HMGAL 14:08 | PROVIDERS: PCP Internal Medicine; Visit Provider Registered Nurse Emergency | DX: J30.89 Other allergic rhinitis (principal) | CPT/HCPCS: 95117; 95165 ==

== ENCOUNTER 2025-08-03 13:04 | Outpatient (AMB) | payer BC, SELFPAY ==
--- OUTSIDE RECORDS SUMMARY | 2025-08-03 17:37 | XMS_ITS | Clinical Summary ---
Author Organization [facility] Address [address] [place] [address] Phone Care Team Providers Care Education Officer Name Role Phone Trista Gan MD Primary Care Provider [phone] Allergies Active Allergy Reactions Criticality Noted Date [...] 3 each 3 5 06/15/20 26 Active doxycycline hyclate (VIBRA-TABS) 100 mg tablet Take 1 tablet (100 mg total) by mouth. 5 Active Active Problems Problem Noted Date [...] pain 08/23/2022 Asthma 05/15/2019 Bipolar disorder ([facility] [place], [facility] V28) 01/2019 Overview (08/19/2024): Sees Dr. Murphy Obstructive sleep apnea 03/09/2019 Overview (08/19/2024): [facility] Home Sleep Apnea Test: Date 03/06/2019; [...] major depressive disorder, without psychotic features ([facility] V24, [facility] V28) 04/04/2017 Microscopic hematuria 06/18/2013 Encounters Date Type Department Care Team Description 07/27/2025 11:45 AM EST Office Visit Pulmonology [facility] [address] [facility] [address] [place] [address] Jeanine Reinoso MD JASMIN on CPAP (Primary Dx); Moderate persistent asthma, unspecified whether complicated; Pulmonary embolism, other, unspecified chronicity, unspecified whether acute cor pulmonale present ([facility] V24, [facility] V28) 06/12/2025 Results Follow-Up Adult Medicine [address] [phone] Anna Rutledge PA 06/12/2025 Telephone Pulmonology [facility] [address] [facility] [address] [place] [address] Jeanine Reinoso MD 05/28/2025 10:30 AM EDT Office Visit Adult Medicine [address] [phone] Anna Rutledge PA Osteopenia, unspecified location (Primary Dx); Obstructive sleep apnea; Acquired hypothyroidism; Moderate persistent asthma without complication; Bipolar affective disorder, remission status unspecified ([facility] V24, [facility] V28); Attention deficit hyperactivity disorder (ADHD), unspecified ADHD type; Bilateral pulmonary embolism ([facility] V24, [facility] V28); Hyperlipidemia LDL goal <100 from [...] for your loved ones. For example, child welfare assistant or elderly care for an older adult? [...] Sign Reading Time Taken Comments Blood Pressure 124/70 07/27/2025 11:56 AM EST Pulse 80 07/27/2025 11:56 AM EST Temperature 35.8 C (96.5 F) 05/28/2025 10:48 AM EDT Respiratory Rate 14 05/28/2025 10:48 AM EDT Oxygen Saturation 97% 07/27/2025 11:56 AM EST Inhaled Oxygen Concentration - - Weight 76.4 kg (168 lb 6.4 oz) 07/27/2025 11:56 AM EST Height 165.1 cm (5' 5 ) 07/27/2025 11:56 AM EST Body Mass Index 28.02 07/27/2025 11:56 AM EST Plan of Treatment Upcoming Encounters Date Type Department Care Team (Late st Contact Info) Description 11/25/2025 11:00 AM EDT Office Visit Adult Medicine [facility] [address] [place], [place] [phone] Trista Gan MD [address] [place], [place] 01/26/2026 11:00 AM EDT Office Visit Pulmonology - [place] [address] [place] [address] Jeanine Reinoso MD [address] [place] [phone] Health Maintenance Due Date Last Done Comments RSV Immunization Adult Patients (1 - Risk 50-74 years 1-dose series) 01/19/2008 Breast Cancer Screening 10/11/2023 10/11/2021, 03/08 COVID-19 Vaccine ( season) 2025 07/12/2023, 07/03/2022, 02/20/2022, Additional history exists Influenza Vaccine (#1) 2025 , 08/21/2023, 08/21/2022, Additional history exists Osteoporosis Screening (Bone Density Screening) 05/24/2025 05/24/2023 Falls Risk Assessment 05/28/2026 05/28/2025 Social Influencers of Health Screening 05/28/2026 05/28/2025 [...] complication Bipolar affective disorder, remission status unspecified ([facility] V24, [facility] V28) Attention deficit hyperactivity disorder (ADHD), unspecified ADHD type Bilateral pulmonary embolism ([facility] V24, [facility] V28) Hyperlipidemia LDL goal <100 COMPREHENSIVE METABOLIC PANEL Routine 06/11/2025 10:38 AM EDT Osteopenia, unspecified location Obstructive sleep apnea Acquired hypothyroidism Moderate persistent asthma without complication Bipolar affective disorder, remission status unspecified ([facility] V24, [facility] V28) Attention deficit hyperactivity disorder (ADHD), unspecified ADHD type Bilateral pulmonary embolism ([facility] V24, [facility] V28) Hyperlipidemia LDL goal <100 HEMOGLOBIN A1C Routine 06/11/2025 10:38 AM EDT Osteopenia, unspecified location Obstructive sleep apnea Acquired hypothyroidism Moderate persistent asthma without complication Bipolar affective disorder, remission status unspecified ([facility] V24, [facility] V28) Attention deficit hyperactivity disorder (ADHD), unspecified ADHD type Bilateral pulmonary embolism ([facility] V24, [facility] V28) Hyperlipidemia LDL goal <100 LIPID PANEL WITH REFLEX TO DIRECT LDL Routine 06/11/2025 10:38 AM EDT Osteopenia, unspecified location Obstructive sleep apnea Acquired hypothyroidism Moderate persistent asthma without complication Bipolar affective disorder, remission status unspecified ([facility]/H[facility] V24, [facility] V28) Attention deficit hyperactivity disorder (ADHD), unspecified ADHD type Bilateral pulmonary embolism ([facility] V24, [facility] V28) Hyperlipidemia LDL goal <100 THYROID STIMULATING HORMONE Routine 06/11/2025 10:38 AM EDT Osteopenia, unspecified location Obstructive sleep apnea Acquired hypothyroidism Moderate persistent asthma without complication Bipolar affective disorder, remission status unspecified ([facility] V24, [facility] V28) Attention deficit hyperactivity disorder (ADHD), unspecified ADHD type Bilateral pulmonary embolism ([facility] V24, [facility] V28) Hyperlipidemia LDL goal <100 DXA BONE DENSITY STUDY 1+ SITS AXIAL SKEL Routine 05/24/2023 11:29 AM EDT Asymptomatic menopausal state HM COLONOSCOPY Routine 06/02/2022 from Last 3 Months or Most Recently Relevant to Health Maintenance Results * Microalbumin creatinine urine ratio (06/11/2025 10:43 AM EDT) Creatinine, Urine 125.0 mg/dL LAB CHEMISTRY METHOD 06/11/2025 1:[address] [facility] Microalb, Ur 18.8 0.0 - 29.0 mg/L LAB CHEMISTRY METHOD 06/11/2025 1:[address] [facility] Microalb/Creat Ratio 15 <30 mg/g creat LAB CHEMISTRY METHOD 06/11/2025 1:[address] [facility] Urine Urine specimen from urethra / Unknown Non-blood Collection / Unknown 06/11/2025 10:43 AM EDT 06/11/2025 10:43 AM EDT us Anna MEZA LAB URINE ORDERABLES Final Re sult Performing Organization Address City/[facility]/ZIP Co de Phone Number [facility] [address] [place] [address], [place] [phone] * Lipid panel with reflex to direct LDL (06/11/2025 10:38 AM EDT) Cholesterol 188 0 - 200 mg/dL LAB CHEMISTRY METHOD 06/11/2025 12:[address] [facility] Triglycerides 128 0 - 150 mg/dL LAB CHEMISTRY METHOD 06/11/2025 12:[address] [facility] HDL 78 >=40 mg/dL LAB CHEMISTRY METHOD 06/11/2025 12:[address] [facility] LDL Calculated 84 0 - 100 mg/dL LAB CHEMISTRY METHOD 06/11/2025 12:[address] [facility] Comment:Estimated LDL Calcul ated using equation: Total cholesterol - HDL cholesterol - (Triglycerides/5) VLDL Cholesterol Wan 25.6 mg/dL LAB CHEMISTRY METHOD 06/11/2025 12:[address] [facility] Non HDL Chol. (LDL+VLDL) 110 <145 mg/dL LAB CHEMISTRY METHOD 06/11/2025 12:[address] [facility] Chol/HDL Ratio 2.4 0.0 - 4.4 LAB CHEMISTRY METHOD 06/11/2025 12:[address] [facility] Blood Venous blood specimen / Unknown Venipuncture / Unknown 06/11/2025 10:38 AM EDT 06/11/2025 10:38 AM EDT us Anna MEZA LAB BLOOD ORDERABLES Final Re sult Performing Organization Address City/[facility]/ZIP Co de Phone Number [facility] [address] [place] [address], [place] [phone] * Thyroid stimulating hormone (06/11/2025 10:38 AM EDT) TSH 1.85 0.40 - 4.00 mcIU/mL LAB CHEMISTRY METHOD 06/11/2025 1:[address] [facility] Blood Venous blood specimen / Unknown Venipuncture / Unknown 06/11/2025 10:38 AM EDT 06/11/2025 10:38 AM EDT us Anna MEZA LAB BLOOD ORDERABLES Final Re sult Performing Organization Address [facility]/ZIP Co de Phone Number [facility] [address] [place] [address], [place] [phone] * Hemoglobin A1c (06/11/2025 10:38 AM EDT) Pathologist [facility] Hemoglobin A1C 5.8 <6.5 % LAB CHEMISTRY METHOD 06/11/2025 2:[address] [facility] Mean Bld Glu Estim. 120 mg/dL LAB CHEMISTRY METHOD 06/11/2025 2:[address] [facility] Blood Venous blood specimen / Unknown Venipuncture / Unknown 06/11/2025 10:38 AM EDT 06/11/2025 10:38 AM EDT us Anna MEZA LAB BLOOD ORDERABLES Final Re sult Performing Organization Address City/[facility]/ZIP Co de Phone Number [facility] [address] [place] [address], [place] [phone] * Comprehensive metabolic panel (06/11/2025 10:38 AM EDT) Pathologist [facility] Sodium 139 133 - 145 mmol/L LAB CHEMISTRY METHOD 06/11/2025 12:[address] [facility] Potassium 4.4 3.5 - 5.5 mmol/L LAB CHEMISTRY METHOD 06/11/2025 12:[facility] Chloride 105 96 - 110 mmol/L LAB CHEMISTRY METHOD 06/11/2025 12:35 PM [facility] CO2 30 21 - 32 mmol/L LAB CHEMISTRY METHOD 06/11/2025 12:35 PM [facility] Anion Gap 4 3 - 11 LAB CHEMISTRY METHOD 06/11/2025 12:35 PM [facility] Glucose 86 70 - 100 mg/dL LAB CHEMISTRY METHOD 06/11/2025 12:35 PM [facility] BUN 12 5 - 25 mg/dL LAB CHEMISTRY METHOD 06/11/2025 12:35 PM [facility] Creatinine 0.69 0.50 - 1.10 mg/dL LAB CHEMISTRY METHOD 06/11/2025 12:35 PM [facility] eGFR 95 >=60 mL/min/1. 73m2 LAB CHEMISTRY METHOD 06/11/2025 12:35 PM [facility] Comment:Calculation based on the Chronic Kidney Disease Epidemiology Collaboration (CKD-EPI) equation refit without adjustment for race. BUN/Creatinine Ratio 17.4 LAB CHEMISTRY METHOD 06/11/2025 12:35 PM [facility] Calcium 9.4 8.5 - 10.5 mg/dL LAB CHEMISTRY METHOD 06/11/2025 12:35 PM [facility] AST (SGOT) 18 10 - 42 unit/L LAB CHEMISTRY METHOD 06/11/2025 12:35 PM [facility] ALT (SGPT) 23 10 - 60 unit/L LAB CHEMISTRY METHOD 06/11/2025 12:35 PM [facility] Alkaline Phosphatase 115 42 - 121 unit/L LAB CHEMISTRY METHOD 06/11/2025 12:35 PM [facility] Total Protein 6.6 6.0 - 8.0 g/dL LAB CHEMISTRY METHOD 06/11/2025 12:35 PM [facility] Albumin 3.9 3.2 - 5.0 g/dL LAB CHEMISTRY METHOD 06/11/2025 12:[address] [facility] Total Bilirubin 0.4 0.0 - 1.4 mg/dL LAB CHEMISTRY METHOD 06/11/2025 12:[address] [facility] Blood Venous blood specimen / Unknown Venipuncture / Unknown 06/11/2025 10:38 AM EDT 06/11/2025 10:38 AM EDT us Anna MEZA LAB BLOOD ORDERABLES Final Re sult [facility] [address] [place] [address], [place] [phone] * DXA BONE DENSITY STUDY 1+ SITS [...] National Osteoporosis Foundation [email or web address].nof.org Trista Gan MD IMG DXA PROCEDURES Final Result * Colonoscopy (06/02/2022) Colonoscopy abstract [facility] /sr Anatomical Region Laterality Modality Other Historical Provider HEALTH MAINTENANCE Final Result from Last 3 Months or Most Recently Relevant to Health Maintenance Insurance [facility] Advance Directives * Full Code - Confirmed [...] Benoit Spouse Health Care Agent Care Teams Education Officer Relationship Specialty Start Date End Date Trista Gan MD [address] [place] [address] PCP - General Internal Medicine 02/18/21
--- OUTSIDE RECORDS SUMMARY | 2025-08-03 17:37 | XMS_ITS | Encounter Summary ---
Author Organization [facility] Address [address] [place] [address] Care Team Providers Care Overhauler Name Role Phone Trista Gan MD Primary Care Provider [phone] Encounter Details Date Type Department Care Team (Late st Contact Info) Description 06/12/2025 Results Follow-Up Adult Medicine [address] [phone] Anna Rutledge PA [address] [place], [place] Social History Tobacco Use Types Packs/Day [...] care for your loved ones. For example, school child care attendant or elderly care for an older adult? [...] 11:00 AM EDT Office Visit Adult Medicine [facility] [address] [place], [place] [phone] Trista Gan MD [address] [place], [place] 01/26/2026 11:00 AM EDT Office Visit Pulmonology - [place] [address] [facility] [address] [place] [phone] Jeanine Reinoso MD [address] [place] [phone] documented as of this encounter Visit Diagnoses Not on filedocumented in this encounter Additional Health Concerns Assessment Noted Time PHQ-9 Depression Total Score: 2 05/28/20 25 5:56 PM EDT documented as of this encounter Care Teams Overhauler Relationship Specialty Start Date End Date Trista Gan MD [address] [place], [place] PCP - General Internal Medicine 02/18/21 documented as of this encounter
--- OUTSIDE RECORDS SUMMARY | 2025-08-03 17:37 | XMS_ITS | Clinical Summary ---
Author Organization [facility] Address [address] [place] [address] [place] [address] Phone Care Team Providers Care Banquet Line Cook Name Role Phone Marybel Enriquez DO Primary [...] file Medical Devices Not on file [place] [address] [address] [place] [address] [place] [address] [place] [address] [place] [address] [place] [address] [place] [address] [place] [place] [address] HMO POS [facility] HMO POS [facility] HMO POS Care Teams Banquet Line Cook Relationship Specialty Start Date End Date Marybel Enriquez DO [address] [place] [address] PCP - General Internal Medicine 07/08/20 Additional Source Comments The information contained in this document represents components of the legal health record. It is not the complete legal health record.[facility]
== END 2025-08-03 13:04 | disposition home or self-care (01) ==
LOC: HO.HMGAL 13:04
PROVIDERS: PCP Internal Medicine; Visit Provider Registered Nurse Emergency
DX: J30.89 Other allergic rhinitis (principal)
CPT/HCPCS: 95117; 95165

== ENCOUNTER 2025-08-10 13:28 | Outpatient (AMB) | payer BC, SELFPAY ==
--- OUTSIDE RECORDS SUMMARY | 2025-08-10 17:02 | XMS_ITS | Clinical Summary ---
Author Organization [facility] Address [address] [place] [address] [place] [address] Phone Care Team Providers Care Rubber Insulator Name Role Phone Marybel Enriquez DO Primary [...] file Medical Devices Not on file [place] [address] [place] [address] [place] [address] [place] [address] [place] [address] [place] [address] [place] [address] [place] [address] [place] [address] [place] [address] [place] [address] [place] [address] [place] [place] [address] HMO POS [facility] HMO POS [facility] HMO POS Care Teams Rubber Insulator Relationship Specialty Start Date End Date Marybel Enriquez DO [address] [place] [address] PCP - General Internal Medicine 07/08/20 Additional Source Comments The information contained in this document represents components of the legal health record. It is not the complete legal health record.[facility]
--- OUTSIDE RECORDS SUMMARY | 2025-08-10 17:02 | XMS_ITS | Encounter Summary ---
Author Organization [facility] Address [address] [place] [address] Care Team Providers Care Buffing And Polishing Wheel Repairer Name Role Phone Trista Gan MD Primary Care Provider [phone] Encounter Details Date Type Department Care Team (Late st Contact Info) Description 06/12/2025 Results Follow-Up Adult Medicine [address] [phone] Anna Rutledge PA [address] [place], [place] Social History Tobacco Use Types Packs/Day [...] care for your loved ones. For example, childbirth and infant care teacher or elderly care for an [...] 11:00 AM EDT Office Visit Adult Medicine [facility] [address] [place], [place] [phone] Trista Gan MD [address] [place], [place] 01/26/2026 11:00 AM EDT Office Visit Pulmonology - [place] [address] [facility] [address] [place] [phone] Jeanine Reinoso MD [address] [place] [address] documented as of this encounter Visit Diagnoses Not on filedocumented in this encounter Additional Health Concerns Assessment Noted Time PHQ-9 Depression Total Score: 2 05/28/20 25 5:56 PM EDT documented as of this encounter Care Teams Buffing And Polishing Wheel Repairer Relationship Specialty Start Date End Date Tirsta Gan MD [address] [place], [place] PCP - General Internal Medicine 02/18/21 documented as of this encounter
--- OUTSIDE RECORDS SUMMARY | 2025-08-10 17:02 | XMS_ITS | Clinical Summary ---
Author Organization [facility] [employer] [facility] Address [address] [address] Phone Care Team Providers Care Print Line Feeder Name Role Phone Trista Gan MD Primary Care Provider [phone] Allergies Active Allergy Reactions Criticality Noted Date [...] Back pain 08/23/2022 Asthma 05/15/2019 Bipolar disorder ([facility] V24, [facility] V28) 01/2019 Overview (08/19/2024): Sees Dr. Murphy Obstructive sleep apnea 03/09/2019 Overview (08/19/2024): [facility] Home Sleep Apnea Test: Date [...] recurrent major depressive disorder, without psychotic features ([facility] V24, [facility] V28) 04/04/2017 Microscopic hematuria 06/18/2013 Encounters Date Type Department Care Team Description 07/27/2025 11:45 AM EST Office Visit Pulmonology [facility] [address] [facility] [address] [place] [address] Jeanine Reinoso MD JASMIN on CPAP (Primary Dx); Moderate persistent asthma, unspecified whether complicated; Pulmonary embolism, other, unspecified chronicity, unspecified whether acute cor pulmonale present ([facility] V24, [facility] V28) 06/12/2025 Results Follow-Up Adult Medicine [address] [address] Anna Rutledge PA 06/12/2025 Telephone Pulmonology [facility] [address] [facility] [address] [place] [address] Jeanine Reinoso MD 05/28/2025 10:30 AM EDT Office Visit Adult Medicine [address] [address] Anna Rutledge PA Osteopenia, unspecified location (Primary Dx); Obstructive sleep apnea; Acquired hypothyroidism; Moderate persistent asthma without complication; Bipolar affective disorder, remission status unspecified ([facility] V24, [facility] V28); Attention deficit hyperactivity disorder (ADHD), unspecified ADHD type; Bilateral pulmonary embolism ([facility] V24, [facility] V28); Hyperlipidemia LDL goal <100 from [...] care for your loved ones. For example, summer child caregiver or elderly care for an older adult? [...] 11:00 AM EDT Office Visit Adult Medicine [facility] [address] [place], [place] [phone] Trista Gan MD [address] [place], [place] 01/26/2026 11:00 AM EDT Office Visit Pulmonology - [place] [address] [facility] [address] [place] [address] Jeanine Reinoso MD [address] [place] [phone] Health Maintenance Due Date Last Done [...] complication Bipolar affective disorder, remission status unspecified ([facility] V24, [facility] V28) Attention deficit hyperactivity disorder (ADHD), unspecified ADHD type Bilateral pulmonary embolism ([facility] V24, [facility] V28) Hyperlipidemia LDL goal <100 COMPREHENSIVE METABOLIC PANEL Routine 06/11/2025 10:38 AM EDT Osteopenia, unspecified location Obstructive sleep apnea Acquired hypothyroidism Moderate persistent asthma without complication Bipolar affective disorder, remission status unspecified ([facility] V24, [facility] V28) Attention deficit hyperactivity disorder (ADHD), unspecified ADHD type Bilateral pulmonary embolism ([facility] V24, [facility] V28) Hyperlipidemia LDL goal <100 HEMOGLOBIN A1C Routine 06/11/2025 10:38 AM EDT Osteopenia, unspecified location Obstructive sleep apnea Acquired hypothyroidism Moderate persistent asthma without complication Bipolar affective disorder, remission status unspecified ([facility] V24, [facility] V28) Attention deficit hyperactivity disorder (ADHD), unspecified ADHD type Bilateral pulmonary embolism ([facility] V24, [facility] V28) Hyperlipidemia LDL goal <100 LIPID PANEL WITH REFLEX TO DIRECT LDL Routine 06/11/2025 10:38 AM EDT Osteopenia, unspecified location Obstructive sleep apnea Acquired hypothyroidism Moderate persistent asthma without complication Bipolar affective disorder, remission status unspecified (CMS/HCC V24, CMS/HCC V28) Attention deficit hyperactivity disorder (ADHD), unspecified ADHD type Bilateral pulmonary embolism (CMS/HCC V24, [facility] V28) Hyperlipidemia LDL goal <100 THYROID STIMULATING HORMONE Routine 06/11/2025 10:38 AM EDT Osteopenia, unspecified location Obstructive sleep apnea Acquired hypothyroidism Moderate persistent asthma without complication Bipolar affective disorder, remission status unspecified (CMS/HCC V24, [facility] V28) Attention deficit hyperactivity disorder (ADHD), unspecified ADHD type Bilateral pulmonary embolism (CMS/HCC V24, [facility] V28) Hyperlipidemia LDL goal <100 DXA BONE DENSITY STUDY 1+ SITS AXIAL SKEL Routine 05/24/2023 11:29 AM EDT Asymptomatic menopausal state HM COLONOSCOPY Routine 06/02/2022 from Last 3 Months or Most Recently Relevant to Health Maintenance Results * Microalbumin creatinine urine ratio (06/11/2025 10:43 AM EDT) Creatinine, Urine 125.0 mg/dL LAB CHEMISTRY METHOD 06/11/2025 1:38 PM EDT [facility] Microalb, Ur 18.8 0.0 - 29.0 mg/L LAB CHEMISTRY METHOD 06/11/2025 1:38 PM EDT [facility] Microalb/Creat Ratio 15 <30 mg/g creat LAB CHEMISTRY METHOD 06/11/2025 1:38 PM EDT [facility] Urine Urine specimen from urethra / Unknown Non-blood Collection / Unknown 06/11/2025 10:43 AM EDT 06/11/2025 10:43 AM EDT us Anna MEZA LAB URINE ORDERABLES Final Re sult Performing Organization Address City/[facility]/ZIP Co de Phone Number [facility] [address] [place] [address], [place] [phone] * Lipid panel with reflex to direct LDL (06/11/2025 10:38 AM EDT) Cholesterol 188 0 - 200 mg/dL LAB CHEMISTRY METHOD 06/11/2025 12:35 PM EDT [facility] Triglycerides 128 0 - 150 mg/dL LAB CHEMISTRY METHOD 06/11/2025 12:35 PM EDT [facility] HDL 78 >=40 mg/dL LAB CHEMISTRY METHOD 06/11/2025 12:35 PM EDT [facility] LDL Calculated 84 0 - 100 mg/dL LAB CHEMISTRY METHOD 06/11/2025 12:35 PM EDT [facility] Comment:Estimated LDL Calcul ated using equation: Total cholesterol - HDL cholesterol - (Triglycerides/5) VLDL Cholesterol Wan 25.6 mg/dL LAB CHEMISTRY METHOD 06/11/2025 12:35 PM EDT [facility] Non HDL Chol. (LDL+VLDL) 110 <145 mg/dL LAB CHEMISTRY METHOD 06/11/2025 12:35 PM EDT [facility] Chol/HDL Ratio 2.4 0.0 - 4.4 LAB CHEMISTRY METHOD 06/11/2025 12:35 PM T [facility] Blood Venous blood specimen / Unknown Venipuncture / Unknown 06/11/2025 10:38 AM EDT 06/11/2025 10:38 AM EDT us Anna MEZA LAB BLOOD ORDERABLES Final Re sult Performing Organization Address City/[facility]/ZIP Co de Phone Number [facility] [address] [place] [address], [place] [phone] * Thyroid stimulating hormone (06/11/2025 10:38 AM EDT) TSH 1.85 0.40 - 4.00 mcIU/mL LAB CHEMISTRY METHOD 06/11/2025 1:05 PM EDT [facility] Blood Venous blood specimen / Unknown Venipuncture / Unknown 06/11/2025 10:38 AM EDT 06/11/2025 10:38 AM EDT us Anna MEZA LAB BLOOD ORDERABLES Final Re sult Performing Organization Address [facility]/ZIP Co de Phone Number [facility] [address] [place] [address], [place] [phone] * Hemoglobin A1c (06/11/2025 10:38 AM EDT) Pathologist [facility] Hemoglobin A1C 5.8 <6.5 % LAB CHEMISTRY METHOD 06/11/2025 2:08 PM EDT [facility] Mean Bld Glu Estim. 120 mg/dL LAB CHEMISTRY METHOD 06/11/2025 2:08 PM EDT [facility] Blood Venous blood specimen / Unknown Venipuncture / Unknown 06/11/2025 10:38 AM EDT 06/11/2025 10:38 AM EDT us Anna MEZA LAB BLOOD ORDERABLES Final Re sult Performing Organization Address City/[facility]/ZIP Co de Phone Number [facility] [address] [place] [address], [place] [phone] * Comprehensive metabolic panel (06/11/2025 10:38 AM EDT) Pathologist [facility] Sodium 139 133 - 145 mmol/L LAB CHEMISTRY METHOD 06/11/2025 12:35 PM EDT [facility] Potassium 4.4 3.5 - 5.5 mmol/L LAB CHEMISTRY METHOD [facility]/11[facility]25 [facility] Chloride 105 96 - 110 mmol/L LAB CHEMISTRY METHOD 06/11/2025 12:35 PM [facility] CO2 30 21 - 32 mmol/L LAB CHEMISTRY METHOD 06/11/2025 12:35 PM [facility] Anion Gap 4 3 - 11 LAB CHEMISTRY METHOD 06/11/2025 12:35 PM [facility] Glucose 86 70 - 100 mg/dL LAB CHEMISTRY METHOD 06/11/2025 12:35 PM [facility] BUN 12 5 - 25 mg/dL LAB CHEMISTRY METHOD 06/11/2025 12:35 PM [facility] Creatinine 0.69 0.50 - 1.10 mg/dL LAB CHEMISTRY METHOD 06/11/2025 12:35 PM [facility] eGFR 95 >=60 mL/min/1. 73m2 LAB CHEMISTRY METHOD 06/11/2025 12:35 PM [facility] Comment:Calculation based on the Chronic Kidney Disease Epidemiology Collaboration (CKD-EPI) equation refit without adjustment for race. BUN/Creatinine Ratio 17.4 LAB CHEMISTRY METHOD 06/11/2025 12:35 PM [facility] Calcium 9.4 8.5 - 10.5 mg/dL LAB CHEMISTRY METHOD 06/11/2025 12:35 PM [facility] AST (SGOT) 18 10 - 42 unit/L LAB CHEMISTRY METHOD 06/11/2025 12:35 PM [facility] ALT (SGPT) 23 10 - 60 unit/L LAB CHEMISTRY METHOD 06/11/2025 12:35 PM [facility] Alkaline Phosphatase 115 42 - 121 unit/L LAB CHEMISTRY METHOD 06/11/2025 12:35 PM [facility] Total Protein 6.6 6.0 - 8.0 g/dL LAB CHEMISTRY METHOD 06/11/2025 12:35 PM [facility] Albumin 3.9 3.2 - 5.0 g/dL LAB CHEMISTRY METHOD 06/11/2025 12:35 PM EDT [facility] Total Bilirubin 0.4 0.0 - 1.4 mg/dL LAB CHEMISTRY METHOD 06/11/2025 12:35 PM EDT [facility] Blood Venous blood specimen / Unknown Venipuncture / Unknown 06/11/2025 10:38 AM EDT 06/11/2025 10:38 AM EDT us Anna MEZA LAB BLOOD ORDERABLES Final Re sult [facility] [address] [place] [address], [place] [phone] * DXA BONE DENSITY STUDY 1+ SITS [...] Final Result * Colonoscopy (06/02/2022) Colonoscopy abstract Fajardostate /sr Anatomical Region Laterality Modality Other Historical Provider HEALTH MAINTENANCE Final Result from Last 3 Months or Most Recently Relevant to Health Maintenance Insurance [facility] Advance Directives * Full Code - [...] Benoit Spouse Health Care Agent Care Teams Print Line Feeder Relationship Specialty Start Date End Date Trista Gan MD [address] [place] [address] PCP - General Internal Medicine 02/18/21
== END 2025-08-10 13:29 | disposition home or self-care (01) ==
LOC: HO.HMGAL 13:28
PROVIDERS: PCP Internal Medicine; Visit Provider Registered Nurse Emergency
DX: J30.89 Other allergic rhinitis (principal)
CPT/HCPCS: 95117; 95165

== ENCOUNTER 2025-08-19 15:36 | Outpatient (AMB) | payer BC, SELFPAY ==
--- OUTSIDE RECORDS SUMMARY | 2025-08-20 00:16 | XMS_ITS | Encounter Summary ---
Author Organization [facility] Prior to 07/11/2024 Address [address] [place] [address] Care Team Providers Care Poultry Sexer Name Role Phone Trista Gan MD Primary Care Provider Encounter Details Date Type Department Care Team Description 04/21/2021 Telephone [facility] [address] [place] [address] Chaitanya Gómez, PA-C [address] [place] [address] Social History Tobacco Use Types Packs/Day Years [...] on filedocumented in this encounter Care Teams Poultry Sexer Relationship Specialty Start Date End Date Trista Gan MD [address] [place] [address] PCP - General Internal Medicine 02/18/21 documented as of this encounter
--- OUTSIDE RECORDS SUMMARY | 2025-08-20 00:16 | XMS_ITS | Encounter Summary ---
Author Organization [facility] Prior to 07/11/2024 Address [address] [place] [address] Care Team Providers Care Head Holder Name Role Phone Marybel Dunlap DO Primary Care Pro vider Unavailable Trista Gan MD Primary Care Provider [phone] Reason for Visit * Reason Comments E-prescribe Rx Request Encounter Details Date Type Department Care Team Description 12/29/2018 Refill Adult Medicine [address] [address] Marybel Dunlap DO E-prescribe Rx Request Social [...] an upcoming appointment? No-unable to reach left [facility] to call for appointment due to refill [...] ?? Patients current insurance carrier is: Payor: [employer] [facility] FFS / Plan: HMO $20 [place] [id number] / ProductType: HMO [id number] ? documented in this encounter Plan of Treatment Not on file documented as of this encounter Visit Diagnoses Not on filedocumented in this encounter Care Teams Head Holder Relationship Specialty Start Date End Date Marybel Dunlap DO PCP - General Internal Medicine 05/19/13 02/17/21 Trista Gan MD [address] [place] [address] PCP - General Internal Medicine 02/18/21 documented as of this encounter
--- OUTSIDE RECORDS SUMMARY | 2025-08-20 00:16 | XMS_ITS | Encounter Summary ---
Author Organization [facility] Prior to 07/11/2024 Address [address] [place] [address] Care Team Providers Care Aerial Sprayer Name Role Phone Trista Gan MD Primary Care Provider [phone] Encounter Details Date Type Department Care Team Description 06/17/2024 Pt. Non Urgent Medical Question Adult Medicine [address] [address] Anna Rutledge PA-C [address] [place] [address] Social History Tobacco Use Types Packs/Day Years [...] on filedocumented in this encounter Care Teams Aerial Sprayer Relationship Specialty Start Date End Date Trista Gan MD [address] [place] [address] PCP - General Internal Medicine 02/18/21 documented as of this encounter
--- OUTSIDE RECORDS SUMMARY | 2025-08-20 00:16 | XMS_ITS | Encounter Summary ---
Author Organization [facility] Prior to 07/11/2024 Address [address] [place] [address] Care Team Providers Care Assistant Center Director Name Role Phone Trista Gan MD Primary Care Provider [phone] Encounter Details Date Type Department Care Team Description 04/21/2021 Telephone [facility] [address] [place] [address] Chaitanya Gómez, PA-C [address] [place] [address] Social History Tobacco Use Types Packs/Day Years [...] on filedocumented in this encounter Care Teams Assistant Center Director Relationship Specialty Start Date End Date Trista Gan MD [address] [place] [phone] PCP - General Internal Medicine 02/18/21 documented as of this encounter
--- OUTSIDE RECORDS SUMMARY | 2025-08-20 00:16 | XMS_ITS | Encounter Summary ---
Author Organization [facility] Prior to 07/11/2024 Address [address] [place] [address] Care Team Providers Care Veterinarian Assistant Name Role Phone Trista Gan MD Primary Care Provider [phone] Reason for Visit * Reason Onset Date Comments refill request 07/09/2021 Encounter Details Date Type Department Care Team Description 07/09/2021 Refill Adult Urgent Care - [address] [phone] Trista Gan MD [address] [place] [address] [phone] refill request Social History Tobacco Use Types [...] N/A Patients current insurance carrier is: Payor: [employer] FFS / Plan: [employer] $[employer] [id number] / ProductType: HMO PRE-PAID documented in this encounter Plan of Treatment Not on file documented as of this encounter Visit Diagnoses Not on filedocumented in this encounter Care Teams Veterinarian Assistant Relationship Specialty Start Date End Date Trista Gan MD [address] [place] [address] [phone] PCP - General Internal Medicine 02/18/21 documented as of this encounter
--- OUTSIDE RECORDS SUMMARY | 2025-08-20 00:16 | XMS_ITS | Encounter Summary ---
Author Organization [facility] Prior to 07/11/2024 Address [address] [place] [address] Care Team Providers Care Linux System Engineer Name Role Phone Trista aGn MD Primary Care Provider [phone] Encounter Details Date Type Department Care Team Description 06/17/2024 Pt. Non Urgent Medical Question Adult Medicine [address] [address] Anna Rutledge PA-C [address] [place] [address] Social History Tobacco Use Types Packs/Day Years [...] 9:04 AM EDTFrom: Kimi Benoit To: Arabella Rutlegde Sent: 06/17/2024 8:56 AM EDT Subject: one [...] on filedocumented in this encounter Care Teams Linux System Engineer Relationship Specialty Start Date End Date Trista Gan MD [address] [place] [address] PCP - General Internal Medicine 02/18/21 documented as of this encounter
--- OUTSIDE RECORDS SUMMARY | 2025-08-20 00:16 | XMS_ITS | Encounter Summary ---
Author Organization [facility] Prior to 07/11/2024 Address [address] [place] [address] Care Team Providers Care Wide Piece Goods Inspector Name Role Phone Trista Gan MD Primary Care Provider [phone] Encounter Details Date Type Department Care Team Description 03/11/2024 Pt. Referral Request [facility] MyChart [address] [place] [address] Md Oscar Social History Tobacco Use Types [...] on filedocumented in this encounter Care Teams Wide Piece Goods Inspector Relationship Specialty Start Date End Date Trista Gan MD [address] [place] [address] [phone] PCP - General Internal Medicine 02/18/21 documented as of this encounter
--- OUTSIDE RECORDS SUMMARY | 2025-08-20 00:16 | XMS_ITS | Encounter Summary ---
Author Organization [facility] Prior to 07/11/2024 Address [address] [place] [address] Care Team Providers Care Refractory Repairer Name Role Phone Marybel Dunlap DO Primary Care Pro vider Unavailable Trista Gan MD Primary Care Provider [phone] Reason for Visit * Reason Onset Date Comments REFERRAL 07/12/2018 Encounter Details Date Type Department Care Team Description 07/12/2018 Telephone Adult Medicine [address] [address] Marybel Dunlap DO REFERRAL Social History Tobacco [...] on filedocumented in this encounter Care Teams Refractory Repairer Relationship Specialty Start Date End Date Marybel Dunlap DO PCP - General Internal Medicine 05/19/13 02/17/21 Trista Gan MD [address] [place] [address] PCP - General Internal Medicine 02/18/21 documented as of this encounter
--- OUTSIDE RECORDS SUMMARY | 2025-08-20 00:16 | XMS_ITS | Encounter Summary ---
Author Organization [facility] Prior to 07/11/2024 Address [address] [place] [address] Care Team Providers Care Campus Wellness Coordinator Name Role Phone Trista Gan MD Primary Care Provider [phone] Encounter Details Date Type Department Care Team Description 04/21/2024 Pt. Non Urgent Medical Question Adult Medicine [address] [phone] Trista Gan MD [address] [place] [address] Social History Tobacco Use Types Packs/Day Years [...] get a phone call Sunday about this? [phone] or [phone]. Thank you. documented in this encounter Plan of Treatment Not on file documented as of this encounter Visit Diagnoses Not on filedocumented in this encounter Care Teams Campus Wellness Coordinator Relationship Specialty Start Date End Date Trista Gan MD [address] [place] [id number] PCP - General Internal Medicine 02/18/21 documented as of this encounter
--- OUTSIDE RECORDS SUMMARY | 2025-08-20 00:17 | XMS_ITS | Encounter Summary ---
Author Organization [facility] Prior to 07/11/2024 Address [address] [place] [address] Care Team Providers Care Cafe Associate Name Role Phone Marybel Dunlap DO Primary Care Pro vider Unavailable Trista Gan MD Primary Care Provider [phone] Encounter Details Date Type Department Care Team Description 08/18/2020 Orders Only Adult Medicine [address] [address] Marybel Dunlap DO Hypothyroidism, unspecified type (Primary [...] 3:20 PM EST 11/10/2020 3:21 PM EST Marybeljenny Saravia DO LAB [facility] Pursuit Management documented in this encounter Visit Diagnoses Diagnosis Hypothyroidism, unspecified type- Primary documented in this encounter Care Teams Cafe Associate Relationship Specialty Start Date End Date Marybel Dunlap DO PCP - General Internal Medicine 05/19/13 02/17/21 Trista Gan MD [address] [place] [address] PCP - General Internal Medicine 02/18/21 documented as of this encounter
--- OUTSIDE RECORDS SUMMARY | 2025-08-20 00:17 | XMS_ITS | Encounter Summary ---
Author Organization [facility] Prior to 07/11/2024 Address [address] [place] [address] Care Team Providers Care Options Trader Name Role Phone Trista Gan MD Primary Care Provider [phone] Reason for Referral * EXTERNAL (Routine) - Authorized/Booked Specialty Diagnoses / Procedures Referred By Contact Referred To Contact Allergy & Immunology / Allergy Procedures REFERRAL TO ALLERGY Stacey Guevara PA-C [address] [place] [address] Baudilio Jordan [address] [place] [address] [address] [place] [address] Referral ID Status Reason Start Date Expiration Date V isits Requested Visits Authorized [id number] Authorized/ Booked 02/17/2022 05/23/2022 52 52 Reason for Visit * Reason Onset Date Comments REFERRAL 02/16/2022 Encounter Details Date Type Department Care Team Description 02/16/2022 Pt. Non Urgent Medical Question Adult Medicine [address] [address] Hayes Hood PA-C [address] [place] [address] Social History Tobacco Use Types Packs/Day Years [...] on filedocumented in this encounter Care Teams Options Trader Relationship Specialty Start Date End Date Trista Gan MD [address] [place] [address] PCP - General Internal Medicine 02/18/21 documented as of this encounter
--- OUTSIDE RECORDS SUMMARY | 2025-08-20 00:17 | XMS_ITS | Encounter Summary ---
Author Organization [facility] Prior to 07/11/2024 Address [address] [place] [address] Care Team Providers Care Speech Pathology Assistant Name Role Phone Marybel Dunlap DO Primary Care Pro vider Unavailable Trista Gan MD Primary Care Provider [phone] Encounter Details Date Type Department Care Team Description 04/20/2020 Pt. Non Urgent Medic al Question Adult Medicine [address] [address] Marybel Dunlap DO Social History Tobacco Use [...] encounter Miscellaneous Notes * Telephone Encounter - Diamond Cage C.M.A. - 04/20/2020 9:44 AM EDTFrom: [...] on filedocumented in this encounter Care Teams Speech Pathology Assistant Relationship Specialty Start Date End Date Marybel Dunlap DO PCP - General Internal Medicine 05/19/13 02/17/21 Trista Gan MD [address] [place] [address] PCP - General Internal Medicine 02/18/21 documented as of this encounter
--- OUTSIDE RECORDS SUMMARY | 2025-08-20 00:17 | XMS_ITS | Encounter Summary ---
Author Organization [facility] Prior to 07/11/2024 Address [address] [place] [address] Care Team Providers Care Stereotype Molder Name Role Phone Trista Gan MD Primary Care Provider [phone] Encounter Details Date Type Department Care Team Description 08/21/2022 Steeler Report Medical Records [address] [place] [address] Anna Galvan PA-C Social History Tobacco Use [...] on filedocumented in this encounter Care Teams Stereotype Molder Relationship Specialty Start Date End Date Trista Gan MD [address] [place] [address] [phone] PCP - General Internal Medicine 02/18/21 documented as of this encounter
--- OUTSIDE RECORDS SUMMARY | 2025-08-20 00:17 | XMS_ITS | Encounter Summary ---
Author Organization [facility] Prior to 07/11/2024 Address [address] [place] [address] Care Team Providers Care Direct Marketing Representative Name Role Phone Marybel Dunlap DO Primary Care Pro vider Unavailable Trista Gan MD Primary Care Provider [phone] Reason for Referral * EXTERNAL (Urgent) - Authorized/Booked Specialty Diagnoses / Procedures Referred By Justin august Referred To Contact Podiatry Procedures REFERRAL TO PODIATRY (OUT OF [place]WORK[place] [address] [place] [address] Smooth Cooper [address] [place] [phone] Referral ID Status Reason Start Date Expiration Date V isits Requested Visits Authorized SEE NOTE Authorized/B ooked 07/17/2019 10/21/2019 1 1 Encounter Details Date Type Department Care Team Description 07/17/2019 Orders Only Adult Medicine [address] [address] Marybel Dunlap DO Social History Tobacco Use [...] filedocumented in this encounter Care Teams Direct Marketing Representative Relationship Specialty Start Date End Date Marybel Dunlap DO PCP - General Internal Medicine 05/19/13 02/17/21 Trista Gan MD [address] [place] [address] PCP - General Internal Medicine 02/18/21 documented as of this encounter
--- OUTSIDE RECORDS SUMMARY | 2025-08-20 00:17 | XMS_ITS | Encounter Summary ---
Author Organization [facility] Prior to 07/11/2024 Address [address] [place] [address] Care Team Providers Care Worm Sorter Name Role Phone Marybel Dunlap DO Primary Care Pro vider Unavailable Trista Gan MD Primary Care Provider [phone] Reason for Visit * Reason Onset Date Comments Ingrown Toenail 07/15/2019 Encounter Details Date Type Department Care Team Description 07/15/2019 Pt. Non Urgent Medic al Question Adult Medicine [address] [address] Marybel Dunlap DO Social History Tobacco Use [...] Progress Notes * Marybel Saravia DO - 07/17/2019 10:39 AM EST Ref to podiatry placed documented in this encounter Miscellaneous Notes * Telephone Encounter - Yelitza Diaz M.A. - 07/15/2019 3:43 PM ESTFrom: Kimi Benoit To: Marybel Saravia DO Sent: 07/15/2019 3:38 PM EST Subject: ingrown toenail Hi, I'm wondering if I need a referral to a verifying machine operator for an ingrown toenail. (I've had one beforeso I'm certain that is what it is.) If possible I'd like to see Dr. Rebel Cooper in [place]. I've been to him before for a differentfoot issue, and I've known him socially for many years. Thanks for you help, Kimi documented in this encounter Plan of Treatment Not on file documented as of this encounter Visit Diagnoses Not on filedocumented in this encounter Care Teams Worm Sorter Relationship Specialty Start Date End Date Marybel Dunlap DO PCP - General Internal Medicine 05/19/13 02/17/21 Trista Gan MD [address] [place] [address] PCP - General Internal Medicine 02/18/21 documented as of this encounter
--- OUTSIDE RECORDS SUMMARY | 2025-08-20 00:17 | XMS_ITS | Encounter Summary ---
Author Organization [facility] Prior to 07/11/2024 Address [address] [place] [address] Care Team Providers Care Paperhanger Name Role Phone Trista Gan MD Primary Care Provider [phone] Encounter Details Date Type Department Care Team Description 12/16/2021 Hydrogenation Still Operator Report Medical Records [address] [place] [address] Abstract, Provider Social History Tobacco Use Types [...] on filedocumented in this encounter Care Teams Paperhanger Relationship Specialty Start Date End Date Trista Gan MD [address] [place] [address] PCP - General Internal Medicine 02/18/21 documented as of this encounter
--- OUTSIDE RECORDS SUMMARY | 2025-08-20 00:17 | XMS_ITS | Encounter Summary ---
Author Organization [facility] Prior to 07/11/2024 Address [address] [place] [address] Care Team Providers Care Quad Stayer Name Role Phone Marybel Dunlap DO Primary Care Pro vider Unavailable Trista Gan MD Primary Care Provider [phone] Reason for Referral * EXTERNAL (Routine) - Authorized/Booked Specialty Diagnoses / Procedures Referred By Justin august Referred To Contact Allergy & Immunology / Allergy Procedures REFERRAL TO ALLERGY Marybel Dunlap DO [address] [place] [address] [address]audilio Jordan [address] [place] [address] Referral ID Status Reason Start Date Expiration Date V isits Requested Visits Authorized SEE NOTE Authorized/B ooked 07/03/2019 10/03/2019 1 1 Encounter Details Date Type Department Care Team Description 07/03/2019 Orders Only Adult Medicine [facility] [address] [place] [address] Marybel Dunlap DO Social History Tobacco Use [...] on filedocumented in this encounter Care Teams Quad Stayer Relationship Specialty Start Date End Date Marybel Dunlap DO PCP - General Internal Medicine 05/19/13 02/17/21 Trista Gan MD [address] [place], [place] [phone] PCP - General Internal Medicine 02/18/21 documented as of this encounter
--- OUTSIDE RECORDS SUMMARY | 2025-08-20 00:17 | XMS_ITS | Encounter Summary ---
Author Organization [facility] Prior to 07/11/2024 Address [address] [place] [address] Care Team Providers Care Scientific Affairs Manager Name Role Phone Marybel Dunlap DO Primary Care Pro vider Unavailable Trista Gan MD Primary Care Provider [phone] Encounter Details Date Type Department Care Team Description 07/08/2020 Telephone Adult Medicine [address] [address] Marybel Dunlap DO Social History Tobacco Use [...] on filedocumented in this encounter Care Teams Scientific Affairs Manager Relationship Specialty Start Date End Date Marybel Dunlap DO PCP - General Internal Medicine 05/19/13 02/17/21 Trista Gan MD [address] [place] [address] PCP - General Internal Medicine 02/18/21 documented as of this encounter
--- OUTSIDE RECORDS SUMMARY | 2025-08-20 00:17 | XMS_ITS | Encounter Summary ---
Author Organization [facility] Prior to 07/11/2024 Address [address] [place] [address] Care Team Providers Care Hospital Intern Name Role Phone Marybel Dunlap DO Primary Care Pro vider Unavailable Trista Gan MD Primary Care Provider [phone] Encounter Details Date Type Department Care Team Description 07/22/2018 Sewer And Drain Technician Report Medical Records [address] [place] [address] Papa Zepeda PA-C Social History Tobacco Use [...] on filedocumented in this encounter Care Teams Hospital Intern Relationship Specialty Start Date End Date Marybel Dunlap DO PCP - General Internal Medicine 05/19/13 02/17/21 Trista Gan MD [address] [place] [address] [phone] PCP - General Internal Medicine 02/18/21 documented as of this encounter
--- OUTSIDE RECORDS SUMMARY | 2025-08-20 00:17 | XMS_ITS | Encounter Summary ---
Author Organization [facility] Prior to 07/11/2024 Address [address] [place] [address] Care Team Providers Care Finance Administrator Name Role Phone Trista Gan MD Primary Care Provider [phone] Encounter Details Date Type Department Care Team Description 02/09/2022 Software Integrator Report Medical Records [address] [place] [address] Jakob Ryan [address] [place] [address] Social History Tobacco Use Types Packs/Day Years [...] on filedocumented in this encounter Care Teams Finance Administrator Relationship Specialty Start Date End Date Trista Gan MD [address] [place] [address] PCP - General Internal Medicine 02/18/21 documented as of this encounter
--- OUTSIDE RECORDS SUMMARY | 2025-08-20 00:17 | XMS_ITS | Clinical Summary ---
Author Organization [facility] Prior to 07/11/2024 Address [address] [place] [address] Care Team Providers Care Interior Design Professor Name Role Phone Trista Gan MD Primary Care Provider [phone] Allergies Active Allergy Reactions Severity Noted Date [...] sleep apnea mild ROBERTO 11 02/10 Overview: [facility] Home Sleep Apnea Test: [...] 05/26/2020 PNEUMOCOCCAL VACCINE Completed 11/19/2023 Care Teams Interior Design Professor Relationship Specialty Start Date End Date Trista Gan MD [address] [place] [address] PCP - General Internal Medicine 02/18/21
--- OUTSIDE RECORDS SUMMARY | 2025-08-20 00:17 | XMS_ITS | Encounter Summary ---
Author Organization [facility] Prior to 07/11/2024 Address [address] [place] [address] Care Team Providers Care Food And Beverage Controller Name Role Phone Marybel Dunlap DO Primary Care Pro vider Unavailable Trista Gan MD Primary Care Provider [phone] Encounter Details Date Type Department Care Team Description 07/01/2019 Pt. Non Urgent Medic al Question Adult Medicine [address] [address] Marybel Dunlap DO Social History Tobacco Use [...] EDT Subject: new referral for allergy shots Stevan, I have been advised by Dr. Jordan's office that I need an updated referral for my allergy shots. My insurance company is [employer]. It needs to be back-dated to June 19. Thank you. documented in this encounter Plan of Treatment Not on file documented as of this encounter Visit Diagnoses Not on filedocumented in this encounter Care Teams Food And Beverage Controller Relationship Specialty Start Date End Date Marybel Dunlap DO PCP - General Internal Medicine 05/19/13 02/17/21 Trista Gan MD [address] [place] [address] PCP - General Internal Medicine 02/18/21 documented as of this encounter
--- OUTSIDE RECORDS SUMMARY | 2025-08-20 00:17 | XMS_ITS | Encounter Summary ---
Author Organization [facility] Prior to 07/11/2024 Address [address] [place] [address] Care Team Providers Care Emergency Department Clinician Name Role Phone Marybel Dunlap DO Primary Care Pro vider Unavailable Trista Gan MD Primary Care Provider [phone] Encounter Details Date Type Department Care Team Description 11/10/2019 Industrial Gas Production Operator Report Medical Records [address] [place] [address] Anali Martinez Social History Tobacco Use Types [...] on filedocumented in this encounter Care Teams Emergency Department Clinician Relationship Specialty Start Date End Date Marybel Dunlap DO PCP - General Internal Medicine 05/19/13 02/17/21 Trista Gan MD [address] [place] [address] [id number] PCP - General Internal Medicine 02/18/21 documented as of this encounter
--- OUTSIDE RECORDS SUMMARY | 2025-08-20 00:17 | XMS_ITS | Encounter Summary ---
Author Organization [facility] Prior to 07/11/2024 Address [address] [place] [address] Care Team Providers Care Wood Gluer Name Role Phone Marybel Dunlap DO Primary Care Pro vider Unavailable Trista Gan MD Primary Care Provider [phone] Reason for Visit * Reason Onset Date Comments Senior Db2 Systems Programmer Feedback 07/18/2019 Podiatry Encounter Details Date Type Department Care Team Description 07/18/2019 Telephone Adult Medicine [address] [address] Marybel Dunlap DO Senior Db2 Systems Programmer Feedback (Podiatry) Social History Tobacco Use Types [...] DO - 07/18/2019 3:10 PM EST Talita okay * Telephone Encounter - Mona West - 07/18/2019 9:[address] Mejía, You put in an Urgent referral for this patient to see Dr. Smooth Cooper at [facility]. I called to schedule and spoke [...] filedocumented in this encounter Care Teams Wood Gluer Relationship Specialty Start Date End Date Marybel Dunlap DO PCP - General Internal Medicine 05/19/13 02/17/21 Trista Gan MD [address] [place] [address] PCP - General Internal Medicine 02/18/21 documented as of this encounter
--- OUTSIDE RECORDS SUMMARY | 2025-08-20 00:17 | XMS_ITS | Encounter Summary ---
Author Organization [facility] Prior to 07/11/2024 Address [address] [place] [address] Care Team Providers Care Hydro Plant Site Manager Name Role Phone Marybel Dunlap DO Primary Care Pro vider Unavailable Trista Gan MD Primary Care Provider Encounter Details Date Type Department Care Team Description 06/01/2019 Pt. Non Urgent Medical Question Pulmonology - [place] [address] [facility] [address] [place] [phone] Britney Worley FNP [address] [place] [address] Social History Tobacco Use Types Packs/Day Years [...] on filedocumented in this encounter Care Teams Hydro Plant Site Manager Relationship Specialty Start Date End Date Marybel Dunlap DO PCP - General Internal Medicine 05/19/13 02/17/21 Trista Gan MD [address] [place] [address] PCP - General Internal Medicine 02/18/21 documented as of this encounter
--- OUTSIDE RECORDS SUMMARY | 2025-08-20 00:18 | XMS_ITS | Encounter Summary ---
Author Organization [facility] Prior to 07/11/2024 Address [address] [place] [address] Care Team Providers Care Nanosystems Engineer Name Role Phone Marybel Dunlap DO Primary Care Pro vider Unavailable Trista Gan MD Primary Care Provider [phone] Encounter Details Date Type Department Care Team Description 06/18/2013 Orders Only Adult Medicine [address] [address] Marybel Dunlap DO Microscopic hematuria; Dyslipidemia Social [...] NEGATIVE NEGATIVE mg/dL 07/22/2013 2:58 PM EST [facility] KETONE, URINE NEGATIVE NEGATIVE mg/dL 07/22/2013 2:58 PM EST [facility] BILIRUBIN URINE NEGATIVE NEGATIVE 07/22/2013 2:58 PM [facility] UROBILINOGEN, URINE 0.2 0.2 - 1.0 E.U./dL 07/22/2013 2:58 PM [facility] BLOOD, URINE TRACE(A) NEGATIVE 07/22/2013 3:04 PM EST [facility] NITRITE,URINE NEGATIVE NEGATIVE 07/22/2013 2:58 PM [facility] LEUKOCYTE ESTERASE, URINE NEGATIVE NEGATIVE 07/22/2013 2:58 PM [facility] RBC-Urine 0-1 0 - 4 /hpf 07/22/2013 4:16 PM [facility] WBC, URINE RARE 0 - 4 /hpf 07/22/2013 4:16 PM [facility] CRYSTALS LT. JOHNNY. PHOSPHATE 07/22/2013 4:16 PM [facility] 07/22/2013 2:42 PM EST 07/22/2013 2:42 PM EST Marybel Saravia DO LAB Performing Organization Address City/State/[facility] Co de Phone Number [facility] [address] [facility] documented in this encounter Visit Diagnoses Diagnosis Microscopic hematuria Dyslipidemia Other and unspecified hyperlipidemia Microscopic hematuria documented in this encounter Care Teams Nanosystems Engineer Relationship Specialty Start Date End Date Marybel Dunlap DO PCP - General Internal Medicine 05/19/13 02/17/21 Trista Gan MD [address] [place] [address] PCP - General Internal Medicine 02/18/21 documented as of this encounter
--- OUTSIDE RECORDS SUMMARY | 2025-08-20 00:18 | XMS_ITS | Clinical Summary ---
Author Organization [facility] Address [address] [address] Phone Care Team Providers Care Hand Sewer Shoes Name Role Phone Trista Gan MD Primary Care Provider [phone] Allergies Active Allergy Reactions Criticality Noted Date [...] 08/19/2024 Overview (08/19/2024): right Bilateral pulmonary embolism 07/26/2024 Assessment & Plan (02/04/2025 1:43 PM [...] pain 08/23/2022 Asthma 05/15/2019 Bipolar disorder 05/15/2019 Overview (08/19/2024): Sees Dr. Murphy Obstructive sleep apnea 03/09/2019 Overview (08/19/2024): [facility] Home Sleep Apnea Test: Date 03/06/2019; [...] without psychotic features 04/04/2017 Microscopic hematuria 06/18/2013 Encounters Date Type Department Care Team Description 07/27/2025 11:45 AM EST Office Visit Pulmonology - [address] [address] Jeanine Reinoso MD JASMIN on CPAP (Primary Dx); Moderate persistent asthma, unspecified whether complicated; Pulmonary embolism, other, unspecified chronicity, unspecified whether acute cor pulmonale present (CMS/HCC V24, CMS/HCC V28) 06/12/2025 Results Follow-Up Adult Medicine [address] [address] Anna Rutledge PA 06/12/2025 Telephone Pulmonology [address] [address] Jeanine Reinoso MD 05/28/2025 10:30 AM EDT Office Visit Adult Medicine [address] [address] Anna Rutledge PA Osteopenia, unspecified location (Primary Dx); Obstructive sleep apnea; Acquired hypothyroidism; Moderate persistent asthma without complication; Bipolar affective disorder, remission status unspecified ([facility] V24, [facility] V28); Attention deficit hyperactivity disorder (ADHD), unspecified ADHD type; Bilateral pulmonary embolism ([facility] V24, [facility] V28); Hyperlipidemia LDL goal <100 from Last [...] care for your loved ones. For example, director of child welfare services or elderly care for an older adult? [...] Orientation Straight 03/23/2025 5: 53 PM EDT Last Filed Vital Signs Vital Sign Reading [...] Care Team (Late st Contact Info) Description 11/04/2025 10:00 AM EST Appointment [facility] [address] [place] [phone] 11/25/2025 11:00 AM EDT Office Visit Adult Medicine [facility] [address] [place] [address] Trista Gan MD [address] [place] [address] 01/26/2026 11:00 AM EDT Office Visit Pulmonology [facility] [address] [place] [address] Jeanine Reinoso MD [address] [place] [address] Health Maintenance Due Date Last Done [...] complication Bipolar affective disorder, remission status unspecified ([facility] V24, [facility] V28) Attention deficit hyperactivity disorder (ADHD), unspecified ADHD type Bilateral pulmonary embolism ([facility] V24, [facility] V28) Hyperlipidemia LDL goal <100 COMPREHENSIVE METABOLIC PANEL Routine 06/11/2025 10:38 AM EDT Osteopenia, unspecified location Obstructive sleep apnea Acquired hypothyroidism Moderate persistent asthma without complication Bipolar affective disorder, remission status unspecified ([facility] V24, [facility] V28) Attention deficit hyperactivity disorder (ADHD), unspecified ADHD type Bilateral pulmonary embolism ([facility] V24, CMS/HCC V28) Hyperlipidemia LDL goal <100 HEMOGLOBIN A1C Routine 06/11/2025 10:38 AM EDT Osteopenia, unspecified location Obstructive sleep apnea Acquired hypothyroidism Moderate persistent asthma without complication Bipolar affective disorder, remission status unspecified ([facility] V24, [facility] V28) Attention deficit hyperactivity disorder (ADHD), unspecified ADHD type Bilateral pulmonary embolism ([facility] V24, [facility] V28) Hyperlipidemia LDL goal <100 LIPID PANEL WITH REFLEX TO DIRECT LDL Routine 06/11/2025 10:38 AM EDT Osteopenia, unspecified location Obstructive sleep apnea Acquired hypothyroidism Moderate persistent asthma without complication Bipolar affective disorder, remission status unspecified ([facility] V24, [facility] V28) Attention deficit hyperactivity disorder (ADHD), unspecified ADHD type Bilateral pulmonary embolism ([facility] V24, [facility] V28) Hyperlipidemia LDL goal <100 THYROID STIMULATING HORMONE Routine 06/11/2025 10:38 AM EDT Osteopenia, unspecified location Obstructive sleep apnea Acquired hypothyroidism Moderate persistent asthma without complication Bipolar affective disorder, remission status unspecified ([facility] V24, [facility] V28) Attention deficit hyperactivity disorder (ADHD), unspecified ADHD type Bilateral pulmonary embolism ([facility] V24, [facility] V28) Hyperlipidemia LDL goal <100 DXA BONE DENSITY STUDY 1+ SITS AXIAL SKEL Routine 05/24/2023 11:29 AM EDT Asymptomatic menopausal state HM COLONOSCOPY Routine 06/02/2022 from Last 3 Months or Most Recently Relevant to Health Maintenance Results * Microalbumin creatinine urine ratio (06/11/2025 10:43 AM EDT) Creatinine, Urine 125.0 mg/dL LAB CHEMISTRY METHOD 06/11/2025 1:[address] [facility] Microalb, Ur 18.8 0.0 - 29.0 mg/L LAB CHEMISTRY METHOD 06/11/2025 1:[address] [facility] Microalb/Creat Ratio 15 <30 mg/g creat LAB CHEMISTRY METHOD 06/11/2025 1:[address] [facility] Urine Urine specimen from urethra / Unknown Non-blood Collection / Unknown 06/11/2025 10:43 AM EDT 06/11/2025 10:43 AM EDT us Anna MEZA LAB URINE ORDERABLES Final Re sult Performing Organization Address [facility]/ZIP Co de Phone Number [facility] [address] [place] [address], [place] [phone] * Lipid panel with reflex to direct LDL (06/11/2025 10:38 AM EDT) Cholesterol 188 0 - 200 mg/dL LAB CHEMISTRY METHOD 06/11/2025 12:[address] [facility] Triglycerides 128 0 - 150 mg/dL LAB CHEMISTRY METHOD 06/11/2025 12:[address] [facility] HDL 78 >=40 mg/dL LAB CHEMISTRY METHOD 06/11/2025 12:[address] [facility] LDL Calculated 84 0 - 100 mg/dL LAB CHEMISTRY METHOD 06/11/2025 12:[address] [facility] Comment:Estimated LDL Calcul ated using equation: Total cholesterol - HDL cholesterol - (Triglycerides/5) VLDL Cholesterol Wan 25.6 mg/dL LAB CHEMISTRY METHOD 06/11/2025 12:[address] [facility] Non HDL Chol. (LDL+VLDL) 110 <145 mg/dL LAB CHEMISTRY METHOD 06/11/2025 12:[address] [facility] Chol/HDL Ratio 2.4 0.0 - 4.4 LAB CHEMISTRY METHOD 06/11/2025 12:[address] [facility] Blood Venous blood specimen / Unknown Venipuncture / Unknown 06/11/2025 10:38 AM EDT 06/11/2025 10:38 AM EDT us Anna MEZA LAB BLOOD ORDERABLES Final Re sult Performing Organization Address City/[facility]/ZIP Co de Phone Number [facility] [address] [place] [address], [place] [phone] * Thyroid stimulating hormone (06/11/2025 10:38 AM EDT) Pathologist [facility] TSH 1.85 0.40 - 4.00 mcIU/mL LAB CHEMISTRY METHOD 06/11/2025 1:[address] [facility] Blood Venous blood specimen / Unknown Venipuncture / Unknown 06/11/2025 10:38 AM EDT 06/11/2025 10:38 AM EDT us Anna MEZA LAB BLOOD ORDERABLES Final Re sult Performing Organization Address [facility]/ZIP Co de Phone Number [facility] [address] [place] [address], [place] [phone] * Hemoglobin A1c (06/11/2025 10:38 AM EDT) [facility] Hemoglobin A1C 5.8 <6.5 % LAB CHEMISTRY METHOD 06/11/2025 2:[address] [facility] Mean Bld Glu Estim. 120 mg/dL LAB CHEMISTRY METHOD 06/11/2025 2:[address] [facility] Blood Venous blood specimen / Unknown Venipuncture / Unknown 06/11/2025 10:38 AM EDT 06/11/2025 10:38 AM EDT us Anna MEZA LAB BLOOD ORDERABLES Final Re sult Performing Organization Address [facility]/ZIP Co de Phone Number [facility] [address] [place] [address], [place] [phone] * Comprehensive metabolic panel (06/11/2025 10:38 AM EDT) [facility] Sodium 139 133 - 145 mmol/L LAB CHEMISTRY METHOD 06/11/2025 12:[address] [facility] Potassium 4.4 3.5 - 5.5 mmol/L LAB CHEMISTRY METHOD 06/11/2025 12:[address] [facility] Chloride 105 96 - 110 mmol/L LAB CHEMISTRY METHOD 06/11/2025 12:35 PM [facility] CO2 30 21 - 32 mmol/L LAB CHEMISTRY METHOD 06/11/2025 12:35 PM [facility] Anion Gap 4 3 - 11 LAB CHEMISTRY METHOD 06/11/2025 12:35 PM [facility] Glucose 86 70 - 100 mg/dL LAB CHEMISTRY METHOD 06/11/2025 12:35 PM [facility] BUN 12 5 - 25 mg/dL LAB CHEMISTRY METHOD 06/11/2025 12:35 PM [facility] Creatinine 0.69 0.50 - 1.10 mg/dL LAB CHEMISTRY METHOD 06/11/2025 12:35 PM [facility] eGFR 95 >=60 mL/min/1. 73m2 LAB CHEMISTRY METHOD 06/11/2025 12:35 PM [facility] Comment:Calculation based on the Chronic Kidney Disease Epidemiology Collaboration (CKD-EPI) equation refit without adjustment for race. BUN/Creatinine Ratio 17.4 LAB CHEMISTRY METHOD 06/11/2025 12:35 PM [facility] Calcium 9.4 8.5 - 10.5 mg/dL LAB CHEMISTRY METHOD 06/11/2025 12:35 PM [facility] AST (SGOT) 18 10 - 42 unit/L LAB CHEMISTRY METHOD 06/11/2025 12:35 PM [facility] ALT (SGPT) 23 10 - 60 unit/L LAB CHEMISTRY METHOD 06/11/2025 12:35 PM [facility] Alkaline Phosphatase 115 42 - 121 unit/L LAB CHEMISTRY METHOD 06/11/2025 12:35 PM [facility] Total Protein 6.6 6.0 - 8.0 g/dL LAB CHEMISTRY METHOD 06/11/2025 12:35 PM [facility] Albumin 3.9 3.2 - 5.0 g/dL LAB CHEMISTRY METHOD 06/11/2025 12:[address] [facility] Total Bilirubin 0.4 0.0 - 1.4 mg/dL LAB CHEMISTRY METHOD 06/11/2025 12:[address] [facility] Blood Venous blood specimen / Unknown Venipuncture / Unknown 06/11/2025 10:38 AM EDT 06/11/2025 10:38 AM EDT us Anna MEZA LAB BLOOD ORDERABLES Final Re sult [facility] [address] [place] [address], [place] [phone] * DXA BONE DENSITY STUDY 1+ SITS [...] Final Result * Colonoscopy (06/02/2022) Colonoscopy abstract [facility] Laterality Modality Other Historical Provider HEALTH MAINTENANCE Final Result from Last 3 Months or Most Recently Relevant to Health Maintenance Insurance [facility] Advance Directives * Full Code - [...] Benoit Spouse Health Care Agent Care Teams Hand Sewer Shoes Relationship Specialty Start Date End Date Trista Gan MD [address] [place] [address] PCP - General Internal Medicine 02/18/21
--- OUTSIDE RECORDS SUMMARY | 2025-08-20 00:18 | XMS_ITS | Encounter Summary ---
Author Organization [facility] Prior to 07/11/2024 Address [address] [place] [address] Care Team Providers Care Process Design Engineer Name Role Phone Marybel Dunlap DO Primary Care Pro vider Unavailable Trista Gan MD Primary Care Provider [phone] Encounter Details Date Type Department Care Team Description 06/21/2020 Pt. Non Urgent Medic al Question Adult Medicine [address] [address] Marybel Dunlap DO Social History Tobacco Use [...] lithium blood level My psychiatrist (not a [employer] employee) has asked me to get a blood lithium level. He said he would send the request/referral to the [facility] lab. The lab, however, does not have anything on filefor me. I believe that the request has to come from my [facility] provider. Would you be able to make this request? I will need to schedule the time of the test since timing is important. Thanks for your help! documented in this encounter Plan of Treatment Not on file documented as of this encounter Visit Diagnoses Not on filedocumented in this encounter Care Teams Process Design Engineer Relationship Specialty Start Date End Date Marybel Dunlap DO PCP - General Internal Medicine 05/19/13 02/17/21 Trista Gan MD [address] [place] [address] PCP - General Internal Medicine 02/18/21 documented as of this encounter
--- OUTSIDE RECORDS SUMMARY | 2025-08-20 00:18 | XMS_ITS | Encounter Summary ---
Author Organization [facility] Prior to 07/11/2024 Address [address] [place] [address] Care Team Providers Care Horse Identifier Name Role Phone Marybel Dunlap DO Primary Care Pro vider Unavailable Trista Gan MD Primary Care Provider [phone] Encounter Details Date Type Department Care Team Description 06/09/2013 Angle Dozer Operator Report Medical Records [address] [place] [address] Smooth Cooper Social History Tobacco Use Types [...] on filedocumented in this encounter Care Teams Horse Identifier Relationship Specialty Start Date End Date Marybel Dunlap DO PCP - General Internal Medicine 05/19/13 02/17/21 Trista Gan MD [address] [place] [id number] PCP - General Internal Medicine 02/18/21 documented as of this encounter
--- OUTSIDE RECORDS SUMMARY | 2025-08-20 00:18 | XMS_ITS | Encounter Summary ---
Author Organization [facility] Prior to 07/11/2024 Address [address] [place] [address] Care Team Providers Care Analyst Geochemical Prospecting Name Role Phone Marybel Dunlap DO Primary Care Pro vider Unavailable Trista Gan MD Primary Care Provider Encounter Details Date Type Department Care Team Description 06/15/2016 Community Product Specialist Report Medical Records [address] [place] [address] Jakob Jeronimo MD Social History Tobacco Use [...] on filedocumented in this encounter Care Teams Analyst Geochemical Prospecting Relationship Specialty Start Date End Date Marybel Dunlap DO PCP - General Internal Medicine 05/19/13 02/17/21 Trista Gan MD [address] [place] [address] PCP - General Internal Medicine 02/18/21 documented as of this encounter
--- OUTSIDE RECORDS SUMMARY | 2025-08-20 00:18 | XMS_ITS | Clinical Summary ---
Author Organization [facility] Address [address] [place] [address] [place] [address] Phone Care Team Providers Care Metal Finisher Name Role Phone Marybel Enriquez DO Primary [...] file Medical Devices Not on file [place] [place] [address] [place] [address] [place] [address] [place] [address] [place] [address] [place] [address] [place] [address] [place] [address] [place] [address] [place] [address] [place] [address] [place] [address] [place] [address] HMO POS [employer] HMO POS [employer] HMO POS Care Teams Metal Finisher Relationship Specialty Start Date End Date Marybel Enriquez DO [address] [place] [address] PCP - General Internal Medicine 07/08/20 Additional Source Comments The information contained in this document represents components of the legal health record. It is not the complete legal health record.[facility]
--- OUTSIDE RECORDS SUMMARY | 2025-08-20 00:18 | XMS_ITS | Encounter Summary ---
Author Organization [facility] Prior to 07/11/2024 Address [address] [place] [address] Care Team Providers Care Geoscience Technician Name Role Phone Marybel Dunlap DO Primary Care Pro vider Unavailable Trista Gan MD Primary Care Provider [phone] Encounter Details Date Type Department Care Team Description 06/10/2013 Release of Information Medical Records [address] [place] [address] Abstract, Provider Social History Tobacco Use Types [...] on filedocumented in this encounter Care Teams Geoscience Technician Relationship Specialty Start Date End Date Marybel Dunlap DO PCP - General Internal Medicine 05/19/13 02/17/21 Trista Gan MD [address] [place] [address] PCP - General Internal Medicine 02/18/21 documented as of this encounter
--- OUTSIDE RECORDS SUMMARY | 2025-08-20 00:18 | XMS_ITS | Encounter Summary ---
Author Organization [facility] Prior to 07/11/2024 Address [address] [place] [address] Care Team Providers Care Electron Beam Welding Machine Operator Name Role Phone Marybel Dunlap DO Primary Care Pro vider Unavailable Trista Gan MD Primary Care Provider [phone] Encounter Details Date Type Department Care Team Description 08/02/2020 Toolsmith Report Medical Records [address] [place] [address] Smooth Cooper Social History Tobacco Use Types [...] on filedocumented in this encounter Care Teams Electron Beam Welding Machine Operator Relationship Specialty Start Date End Date Marybel Dunlap DO PCP - General Internal Medicine 05/19/13 02/17/21 Trista Gan MD [address] [place] [phone] PCP - General Internal Medicine 02/18/21 documented as of this encounter
--- OUTSIDE RECORDS SUMMARY | 2025-08-20 00:18 | XMS_ITS | Encounter Summary ---
Author Organization [facility] Prior to 07/11/2024 Address [address] [place] [address] Care Team Providers Care Steamblaster Name Role Phone Marybel Dunlap DO Primary Care Pro vider Unavailable Trista Gan MD Primary Care Provider [phone] Encounter Details Date Type Department Care Team Description 03/12/2014 Telephone Adult Medicine [address] [address] Marybel Dunlap DO Social History Tobacco Use [...] Who is patients PCP?: Marybel Enriquez Payor: [employer] / Plan: HMO $15 [place] [id number] / Product Type: HMO [id number] documented in this encounter Plan of Treatment Not on file documented as of this encounter Visit Diagnoses Not on filedocumented in this encounter Care Teams Steamblaster Relationship Specialty Start Date End Date Marybel Dunlap DO PCP - General Internal Medicine 05/19/13 02/17/21 Trista Gan MD [address] [place] [address] PCP - General Internal Medicine 02/18/21 documented as of this encounter
--- OUTSIDE RECORDS SUMMARY | 2025-08-20 00:18 | XMS_ITS | Encounter Summary ---
Author Organization [facility] Prior to 07/11/2024 Address [address] [place] [address] Care Team Providers Care Regional Sales Consultant Name Role Phone Marybel Dunlap DO Primary Care Pro vider Unavailable Trista Gan MD Primary Care Provider [phone] Reason for Visit * Reason Onset Date Comments Constipation 04/28/2020 had disimpaction at ER Encounter Details Date Type Department Care Team Description 04/28/2020 Pt. Non Urgent Medic al Question Adult Medicine [address] [address] Marybel Dunlap DO Social History Tobacco Use [...] on filedocumented in this encounter Care Teams Regional Sales Consultant Relationship Specialty Start Date End Date Marybel Dunlap DO PCP - General Internal Medicine 05/19/13 02/17/21 Trista Gan MD [address] [place] [address] PCP - General Internal Medicine 02/18/21 documented as of this encounter
--- OUTSIDE RECORDS SUMMARY | 2025-08-20 00:18 | XMS_ITS | Patient Health Record ---
Author [facility] Address [address] [place] [address] Care Team Providers Care Geosciences Associate Professor Name Role Phone Trista Gan Primary Care Provider Smooth Young Unavailable [phone] Allergies Allergen (clinical drug ingredient) Drug/Non Drug [...] Status Risk Notes Problem Acquired hallux valgus (46064370) Hallux valgus (acquired), left foot (M20.12) Active confirmed Problem Chronic ulcer of foot (574530032) Non-pressure chronic ulcer of other part of left foot with fat layer exposed (L97.522) Active confirmed Problem Acquired hallux valgus (62770800) Hallux valgus (acquired), right foot (M20.11) Active [...] X ray : Foot, right 2V 03/24/2013 [id number] SKIN/TISSUE 08/14/2022 Insurance Providers Payer Name Payer Address Payer Phone Subscriber Number Group Number Insured Name Patient Relationship to Insured Coverage Start Date Coverage End Date [facility] [id number] [place] [address] [phone] [id number] 2 Jack Benoit Spouse - patient is [...]
--- OUTSIDE RECORDS SUMMARY | 2025-08-20 00:18 | XMS_ITS | Encounter Summary ---
Author Organization [facility] Prior to 07/11/2024 Address [address] [place] [address] Care Team Providers Care Transit Worker Name Role Phone Marybel Dunlap DO Primary Care Pro vider Unavailable Trista Gan MD Primary Care Provider [phone] Encounter Details Date Type Department Care Team Description 12/17/2020 Cloth Seconds Sorter Report Medical Records [address] [place] [address] Anali Martinez Social History Tobacco Use Types [...] have Coronavirus / COVID-19? No / Unsure 12/20/2020 2:29 PM EDT documented as of this encounter Plan of Treatment Not on file documented as of this encounter Visit Diagnoses Not on filedocumented in this encounter Care Teams Transit Worker Relationship Specialty Start Date End Date Marybel Dunlap DO PCP - General Internal Medicine 05/19/13 02/17/21 Trista Gan MD [address] [place] [address] PCP - General Internal Medicine 02/18/21 documented as of this encounter
== END 2025-08-19 15:37 | disposition home or self-care (01) ==
LOC: HO.HMGAL 15:36
PROVIDERS: PCP Internal Medicine; Visit Provider Registered Nurse Emergency
DX: J30.89 Other allergic rhinitis (principal)
CPT/HCPCS: 95117; 95165

== ENCOUNTER 2025-08-26 11:52 | Outpatient (AMB) | payer BC, SELFPAY ==
--- OUTSIDE RECORDS SUMMARY | 2025-08-26 15:45 | XMS_ITS | Clinical Summary ---
Author Organization [facility] Address [address] [place] [address] [place] [address] Phone Care Team Providers Care Axle And Frame Mechanic Name Role Phone Marybel Enriquez DO Primary [...] file Medical Devices Not on file [place] [address] [address] [place] [address] [place] [address] [place] [address] [place] [address] [place] [address] [place] [address] [address] [place] [address] HMO POS [facility] HMO POS [facility] HMO POS Care Teams Axle And Frame Mechanic Relationship Specialty Start Date End Date Marybel Enriquez DO [address] [place] [address] PCP - General Internal Medicine 07/08/20 Additional Source Comments The information contained in this document represents components of the legal health record. It is not the complete legal health record.[facility]
--- OUTSIDE RECORDS SUMMARY | 2025-08-26 15:45 | XMS_ITS | Patient Health Record ---
[facility] Address [address] [place] [address] Care Team Providers Care Technician Preventative Medicine Name Role Phone Trista Gan Primary Care Provider Smooth Young Unavailable [phone] Allergies Allergen (clinical drug ingredient) Drug/Non Drug [...] Status Risk Notes Problem Acquired hallux valgus (06513273) Hallux valgus (acquired), left foot (M20.12) Active confirmed Problem Chronic ulcer of foot (651975402) Non-pressure chronic ulcer of other part of left foot with fat layer exposed (L97.522) Active confirmed Problem Acquired hallux valgus (54758809) Hallux valgus (acquired), right foot (M20.11) Active [...] X ray : Foot, right 2V 03/24/2013 [id number] SKIN/TISSUE 08/14/2022 Insurance Providers Payer Name Payer Address Payer Phone Subscriber Number Group Number Insured Name Patient Relationship to Insured Coverage Start Date Coverage End Date [facility] [address] [place] [address] [id number] Jack Benoit Spouse - patient is [...]
--- OUTSIDE RECORDS SUMMARY | 2025-08-26 15:45 | XMS_ITS | Clinical Summary ---
Author Organization [facility] Address [address] [place] [address] Phone Care Team Providers Care Arm Rest Builder Name Role Phone Trista Gan MD Primary Care Provider [phone] Allergies Active Allergy Reactions Criticality Noted Date [...] shortness of breath. 1 each 11 5 026 Active simvastatin (ZOCOR) 20 mg tablet TAKE 1 TABLET BY MOUTH EVERYDAY AT BEDTIME 90 tablet 1 5 Active fluticasone furoate (Arnuity Ellipta) 100 mcg/actuation blister with device inhaler Inhale 1 puff by mouth 1 (one) time each day. 3 each 3 5 026 Active doxycycline hyclate (VIBRA-TABS) 100 mg tablet Take 1 tablet (100 mg total) by mouth. 5 Active levothyroxine (SYNTHROID, LEVOTHROID) 88 mcg tablet Take 1 tablet (88 mcg total) by mouth 1 (one) time each day before breakfast. 90 tablet 1 5 Active levothyroxine (SYNTHROID, LEVOTHROID) 88 mcg tablet Take 1 tablet (88 mcg total) by mouth 1 (one) time each day before breakfast. 90 tablet 1 025 Discontin ued(Reord er) Active Problems Problem Noted Date Diagnosed Date [...] Murphy Obstructive sleep apnea 03/09/2019 Overview (08/19/2024): [facility] Home Sleep Apnea Test: [...] 07/27/2025 11:45 AM EST Office Visit Pulmonology [address] [place] [address] Jeanine Reinoso MD JASMIN on CPAP (Primary Dx); Moderate persistent asthma, unspecified whether complicated; Pulmonary embolism, other, unspecified chronicity, unspecified whether acute cor pulmonale present (CMS/HCC V24, CMS/[facility] V28) 06/12/2025 Results Follow-Up Adult Medicine [address] [address] Anna Rutledge PA 06/12/2025 Telephone Pulmonology - [address] [place] [address] Jeanine Reinoso MD 05/28/2025 10:30 AM EDT Office Visit Adult Medicine [address] [address] Anna Rutledge PA Osteopenia, unspecified location (Primary Dx); Obstructive sleep apnea; Acquired hypothyroidism; Moderate persistent asthma without complication; Bipolar affective disorder, remission status unspecified ([facility] V24, [facility] V28); Attention deficit hyperactivity disorder (ADHD), unspecified ADHD type; Bilateral pulmonary embolism ([facility] V24, [facility] V28); Hyperlipidemia LDL goal <100 from Last [...] care for your loved ones. For example, children counselor or elderly care for an older adult? [...] Info) Description 11/04/2025 10:00 AM EST Appointment [facility] Density [address] [place] [phone] 11/25/2025 11:00 AM EDT Office Visit Adult Medicine [facility] [address] [place] [address] Trista Gan MD [address] [place] [address] 01/26/2026 11:00 AM EDT Office Visit Pulmonology [facility] [address] [place] [phone] Jeanine Reinoso MD [address] [place] [phone] Health Maintenance Due Date Last Done Comments [...] Bipolar affective disorder, remission status unspecified ([facility] V24, [facility] V28) Attention deficit hyperactivity disorder (ADHD), unspecified ADHD type Bilateral pulmonary embolism ([facility] V24, CMS/[facility] V28) Hyperlipidemia LDL goal <100 COMPREHENSIVE METABOLIC PANEL Routine 06/11/2025 10:38 AM EDT Osteopenia, unspecified location Obstructive sleep apnea Acquired hypothyroidism Moderate persistent asthma without complication Bipolar affective disorder, remission status unspecified ([facility] V24, CMS/[facility] V28) Attention deficit hyperactivity disorder (ADHD), unspecified ADHD type Bilateral pulmonary embolism ([facility] V24, CMS/[facility] V28) Hyperlipidemia LDL goal <100 HEMOGLOBIN A1C Routine 06/11/2025 10:38 AM EDT Osteopenia, unspecified location Obstructive sleep apnea Acquired hypothyroidism Moderate persistent asthma without complication Bipolar affective disorder, remission status unspecified (CMS/HCC V24, CMS/HCC V28) Attention deficit hyperactivity disorder (ADHD), unspecified ADHD type Bilateral pulmonary embolism (CMS/HCC V24, CMS/HCC V28) Hyperlipidemia LDL goal <100 LIPID PANEL WITH REFLEX TO DIRECT LDL Routine 06/11/2025 10:38 AM EDT Osteopenia, unspecified location Obstructive sleep apnea Acquired hypothyroidism Moderate persistent asthma without complication Bipolar affective disorder, remission status unspecified (CMS/HCC V24, CMS/HCC V28) Attention deficit hyperactivity disorder (ADHD), unspecified ADHD type Bilateral pulmonary embolism (CMS/HCC V24, CMS/HCC V28) Hyperlipidemia LDL goal <100 THYROID STIMULATING HORMONE Routine 06/11/2025 10:38 AM EDT Osteopenia, unspecified location Obstructive sleep apnea Acquired hypothyroidism Moderate persistent asthma without complication Bipolar affective disorder, remission status unspecified (CMS/HCC V24, CMS/HCC V28) Attention deficit hyperactivity disorder (ADHD), unspecified ADHD type Bilateral pulmonary embolism (CMS/HCC V24, CMS/HCC V28) Hyperlipidemia LDL goal <100 DXA BONE [...] [facility] LAB URINE ORDERABLES Final Re sult [facility] [address] [place] [address], [place] [phone] * Lipid panel with reflex to direct LDL (06/11/2025 10:38 AM EDT) Cholesterol 188 0 - 200 mg/dL LAB CHEMISTRY METHOD 06/11/2025 12:[address] [facility] Triglycerides 128 0 - 150 mg/dL LAB CHEMISTRY METHOD 06/11/2025 12:35 PM [facility] HDL 78 >=40 mg/dL LAB CHEMISTRY METHOD 06/11/2025 12:[address] [facility] LDL Calculated 84 0 - 100 mg/dL LAB CHEMISTRY METHOD 06/11/2025 12:[address] [facility] Comment:Estimated LDL Calcul ated using equation: Total cholesterol - HDL cholesterol - (Triglycerides/5) VLDL Cholesterol Wan 25.6 mg/dL LAB CHEMISTRY METHOD 06/11/2025 12:35 PM [facility] Non HDL Chol. (LDL+VLDL) 110 <145 mg/dL LAB CHEMISTRY METHOD 06/11/2025 12:[address] [facility] Chol/HDL Ratio 2.4 0.0 - 4.4 LAB CHEMISTRY METHOD 06/11/2025 12:35 PM [facility] Blood Venous blood specimen / Unknown Venipuncture / Unknown 06/11/2025 10:38 AM EDT 06/11/2025 10:38 AM EDT us Anna MEZA LAB BLOOD ORDERABLES Final Re sult Performing Organization Address [facility]/ZIP Co de Phone Number [facility] [address] [place] [address], [place] [phone] * Thyroid stimulating hormone (06/11/2025 10:38 AM EDT) Pathologist [facility] TSH 1.85 0.40 - 4.00 mcIU/mL LAB CHEMISTRY METHOD 06/11/2025 1:[address] [facility] Blood Venous blood specimen / Unknown Venipuncture / Unknown 06/11/2025 10:38 AM EDT 06/11/2025 10:38 AM EDT us Anna MEZA LAB BLOOD ORDERABLES Final Re sult Performing Organization Address [facility]/ZIP Co de Phone Number [facility] [address] [place] [address], [place] [phone] * Hemoglobin A1c (06/11/2025 10:38 AM EDT) [facility] Hemoglobin A1C 5.8 <6.5 % LAB CHEMISTRY METHOD 06/11/2025 2:[address] [facility] Mean Bld Glu Estim. 120 mg/dL LAB CHEMISTRY METHOD 06/11/2025 2:[address] [facility] Blood Venous blood specimen / Unknown Venipuncture / Unknown 06/11/2025 10:38 AM EDT 06/11/2025 10:38 AM EDT us Anna MEZA LAB BLOOD ORDERABLES Final Re sult Performing Organization Address City/[facility]/ZIP Co de Phone Number [facility] [address] [place] [address], [place] [phone] * Comprehensive metabolic panel (06/11/2025 10:38 AM EDT) [facility] Sodium 139 133 - 145 mmol/L LAB CHEMISTRY METHOD 06/11/2025 12:35 PM [facility] Potassium 4.4 3.5 - 5.5 mmol/L LAB CHEMISTRY METHOD 06/11/2025 12:35 PM [facility] Chloride 105 96 - 110 mmol/L LAB CHEMISTRY METHOD 06/11/2025 12:35 PM [facility] CO2 30 21 - 32 mmol/L LAB CHEMISTRY METHOD 06/11/2025 12:35 PM [facility] Anion Gap 4 3 - 11 LAB CHEMISTRY METHOD 06/11/2025 12:35 PM [facility] Glucose 86 70 - 100 mg/dL LAB CHEMISTRY METHOD 06/11/2025 12:35 PM [facility] BUN 12 5 - 25 mg/dL LAB CHEMISTRY METHOD 06/11/2025 12:35 PM [facility] Creatinine 0.69 0.50 - 1.10 mg/dL LAB CHEMISTRY METHOD 06/11/2025 12:35 PM [facility] eGFR 95 >=60 mL/min/1. 73m2 LAB CHEMISTRY METHOD 06/11/2025 12:35 PM [facility] Comment:Calculation based on the Chronic Kidney Disease Epidemiology Collaboration (CKD-EPI) equation refit without adjustment for race. BUN/Creatinine Ratio 17.4 LAB CHEMISTRY METHOD 06/11/2025 12:35 PM [facility] Calcium 9.4 8.5 - 10.5 mg/dL LAB CHEMISTRY METHOD 06/11/2025 12:35 PM [facility] AST (SGOT) 18 10 - 42 unit/L LAB CHEMISTRY METHOD 06/11/2025 12:35 PM [facility] ALT (SGPT) 23 10 - 60 unit/L LAB CHEMISTRY METHOD 06/11/2025 12:35 PM [facility] Alkaline Phosphatase 115 42 - 121 unit/L LAB CHEMISTRY METHOD 06/11/2025 12:[address] [facility] Total Protein 6.6 6.0 - 8.0 g/dL LAB CHEMISTRY METHOD 06/11/2025 12:[address] [facility] Albumin 3.9 3.2 [...] MEZA LAB BLOOD ORDERABLES Final Re sult [facility] [address] [place] [address], [place] [phone] * DXA BONE DENSITY STUDY 1+ SITS [...] Final Result * Colonoscopy (06/02/2022) Colonoscopy abstract [facility] / Anatomical Region Laterality Modality Other Historical Provider HEALTH MAINTENANCE Final Result from Last 3 Months or Most Recently Relevant to Health Maintenance Insurance [facility] Advance Directives * Full Code - [...] Agents on File Name Relationship Healthcare Agent [facility] Communication Ernie Benoit Spouse Health Care Agent Care Teams Arm Rest Builder Relationship Specialty Start Date End Date Trista Gan MD [address] [place] [address] PCP - General Internal Medicine 02/18/21
== END 2025-08-26 11:52 | disposition home or self-care (01) ==
LOC: HO.HMGAL 11:52
PROVIDERS: PCP Internal Medicine; Visit Provider Registered Nurse Emergency
DX: J30.89 Other allergic rhinitis (principal)
CPT/HCPCS: 95117; 95165